=== PATIENT | male | born 1970 | race Caucasian/White ===

== ENCOUNTER 2017-01-18 13:49 | Emergency (ER) | payer MEDICAID ==
--- NOTE | 2017-01-18 14:18 | ER Document Report ---
ED General - General Stated Complaint: BLOOD PRESSURE PROBLEMS Time Seen by Provider: 01/18/17 14:00 Mode of Arrival: Medic Information source: Patient, Dr. Office Notes: 46-year-old male history of hypertension who had not taken his clonidine but is on for other blood pressure medications was at his primary care doctor's office where blood pressure was noted to be elevated at 208/100, pt was given clonidine 0.1 and then became dizzy when his blood pressure dropped. pt now notes no symptoms, , denies any neuro deficits. notes his symptoms all resolved when he got into the ambulance ot come here. TRAVEL OUTSIDE OF THE [place] IN LAST 30 DAYS: No - HPI Onset: Just prior to arrival Onset/Duration: Sudden Quality of pain: No pain Severity: Mild Pain Level: Denies Associated symptoms: Weakness Exacerbated by: Other Relieved by: Denies Similar symptoms previously: Yes Recently seen / treated by doctor: Yes - Related Data Allergies/Adverse Reactions: No Known Allergies Allergy (Verified 09/25/12 21:12) Past Medical History - Social History Smoking Status: Never Smoker Cigarette use (# per day): No Chew tobacco use (# tins/day): No Smoking Education Provided: No Family History: Reviewed & Not Pertinent - Past Medical History Cardiac Medical History: Reports: Hx Congestive Heart Failure - possible, Hx Hypertension Past Surgical History: Reports: Hx Cardiac Catheterization - Immunizations Hx Diphtheria, Pertussis, Tetanus Vaccination: No Review of Systems - Review of Systems Notes: REVIEW OF SYSTEMS: CONSTITUTIONAL : Denies fever, chills, or sweats. Denies recent illness. EENT: Denies eye, ear, throat, or mouth pain or symptoms. Denies nasal or sinus congestion or discharge. Denies throat, tongue, or mouth swelling or difficulty swallowing. CARDIOVASCULAR: Denies chest pain. Denies palpitations or racing or irregular heart beat. Denies ankle edema. RESPIRATORY: Denies cough, cold, or chest congestion. Denies shortness of breath, difficulty breathing, or wheezing. GASTROINTESTINAL: Denies abdominal pain or distention. Denies nausea, vomiting , or diarrhea. Denies blood in vomitus, stools, or per rectum. Denies black, tarry stools. Denies constipation. GENITOURINARY: Denies difficulty urinating, painful urination, burning, frequency, blood in urine, or discharge. MUSCULOSKELETAL: Denies back or neck pain or stiffness. Denies joint pain or swelling. SKIN: Denies rash, lesions or sores. HEMATOLOGIC : Denies easy bruising or bleeding. LYMPHATIC: Denies swollen, enlarged glands. NEUROLOGICAL: Admits to dizziness PSYCHIATRIC: Denies anxiety or stress. Denies depression, suicidal ideation, or homicidal ideation. ALL OTHER SYSTEMS REVIEWED AND NEGATIVE. Dictation was performed using [employer] voice recognition software PHYSICAL EXAMINATION: GENERAL: Well-appearing, well-nourished and in no acute distress. HEAD: Atraumatic, normocephalic. EYES: Pupils equal round and reactive to light, extraocular movements intact, sclera anicteric, conjunctiva are normal. ENT: Nares patent, oropharynx clear without exudates. Moist mucous membranes. NECK: Normal range of motion, supple without lymphadenopathy LUNGS: Breath sounds clear to auscultation bilaterally and equal. No wheezes rales or rhonchi. HEART: Regular rate and rhythm without murmurs ABDOMEN: Soft, nontender, nondistended abdomen. No guarding, no rebound. No masses appreciated. Musculoskeletal: Normal range of motion, no pitting or edema. No cyanosis. NEUROLOGICAL: Cranial nerves grossly intact. Normal speech, normal gait. Normal sensory, motor exams PSYCH: Normal mood, normal affect. SKIN: Warm, Dry, normal turgor, no rashes or lesions noted. Physical Exam - Vital signs Vitals: Temp Pulse Resp BP Pulse Ox 98.0 F 73 18 163/89 H 98 01/18/17 14:10 01/18/17 14:10 01/18/17 14:10 01/18/17 14:10 01/18/17 14:10 Course - Re-evaluation Re-evalutation: 01/18/17 14:37 Patient blood pressure has improved with the clonidine, lab work imaging is pending but I expect patient to have had the symptoms due to the blood pressure dropping 01/18/17 20:42 Patient is noted to have chronic kidney disease, blood pressure stabilized and he feels well at this time. Patient has been instructed that he must follow-up with his physician Patient states he will do so After performing a Medical Screening Examination, I estimate there is LOW risk for ACUTE GLAUCOMA, TEMPORAL ARTERITIS, MENINGITIS, INCRANIAL HEMORRHAGE, or ISCHEMIC STROKE thus I consider the discharge disposition reasonable. I have reevaluated this patient multiple times and no significant life threatening changes are noted. The patient and I have discussed the diagnosis and risks, and we agree with discharging home with close follow-up with the understanding that symptoms and presentations can change. We also discussed returning to the Emergency Department immediately if new or worsening symptoms occur. We have discussed the symptoms which are most concerning (e.g., changing or worsening symptoms, new numbness or weakness, vomiting, fever) that necessitate immediate return. - Vital Signs Vital signs: Temp Pulse Resp BP Pulse Ox 98.0 F 73 16 176/92 H 99 01/18/17 14:10 01/18/17 14:10 01/18/17 16:01 01/18/17 16:01 01/18/17 16:01 - Laboratory Result Diagrams: 01/18/17 13:57 01/18/17 13:57 Laboratory results interpreted by me: 01/18/17 01/18/17 13:57 13:57 RBC 6.02 H Hgb 12.9 L MCV 66 L MCH 21.4 L RDW 15.6 H Seg Neutrophils % 78.2 H Chloride 110 H Carbon Dioxide 21 L Creatinine 1.62 H Est GFR ( Amer) 56 L Est GFR (Non-Af Amer) 46 L Calcium 8.2 L ALT 18 L Creatine Kinase 192 H Total Protein 5.7 L Albumin 3.0 L - Diagnostic Test Radiology reviewed: Image reviewed, Reports reviewed - EKG Interpretation by Me EKG shows normal: Sinus rhythm, Girard, Intervals, QRS Complexes Critical Care Note - Critical Care Note Total time excluding time spent on procedures (mins): 34 Comments: 34 minutes of critical care time spent in direct contact evaluating and reevaluating the patient, treating symptoms, reviewing labs and studies and speaking with family and consultants excluding any procedures Discharge - Discharge Clinical Impression: Hypertensive urgency Condition: Stable Disposition: HOME, SELF-CARE Instructions: High Blood Pressure ([facility]) Referrals: KAYLEEN CAMPBELL MD [Primary Care Provider] - Follow up tomorrow
[2017-01-18 14:38] LABS: ABSOLUTE BASOPHILS # (AUTO) 0.1 10^3/uL (0.0-0.2); ABSOLUTE EOSINOPHILS # (AUTO) 0.2 10^3/uL (0.0-0.6); ABSOLUTE LYMPHOCYTES (AUTO) 1.1 10^3/uL (0.5-4.7); ABSOLUTE MONOCYTES (AUTO) 0.4 10^3/uL (0.1-1.4); ABSOLUTE NEUT (AUTO) 6.8 10^3/uL (1.7-8.2); BASOPHILS % (AUTO) 1.4 % (0-2); EOSINOPHILS % (AUTO) 2.5 % (0-6); HEMATOCRIT 39.8 % (37.9-51.0); HEMOGLOBIN 12.9 g/dL (13.5-17.0); HGB HCT DIFFERENCE -1.1; LYMPHOCYTES % (AUTO) 13.1 % (13-45); MEAN CORPUSCULAR HEMOGLOBIN 21.4 pg (27.0-33.4); MEAN CORPUSCULAR HGB CONC 32.3 g/dL (32.0-36.0); MEAN CORPUSCULAR VOLUME 66 fl (80-97); MONOCYTES % (AUTO) 4.8 % (3-13); RED BLOOD COUNT 6.02 10^6/uL (4.35-5.55); RED CELL DISTRIBUTION WIDTH 15.6 % (11.5-14.0); SEGMENTED NEUTROPHILS % (AUTO) 78.2 % (42-78); WHITE BLOOD COUNT 8.7 10^3/uL (4.0-10.5)
[2017-01-18 15:16] LABS: ALANINE AMINOTRANSFERASE 18 U/L (21-72); ALKALINE PHOSPHATASE 62 U/L (38-126); ANION GAP 9 (5-19); ASPARTATE AMINO TRANSFERASE 17 U/L (17-59); BILIRUBIN,DIRECT 0.4 mg/dL (0.0-0.4); BILIRUBIN,TOTAL 1.1 mg/dL (0.2-1.3); BLOOD UREA NITROGEN 20 mg/dL (7-20); CALCIUM 8.2 mg/dL (8.4-10.2); CARBON DIOXIDE 21 mmol/L (22-30); CHLORIDE 110 mmol/L (98-107); CREATINE KINASE 192 U/L (55-170); CREATININE RESULT 1.62 mg/dL (0.52-1.25); GLUCOSE 93 mg/dL (75-110); POTASSIUM 4.4 mmol/L (3.6-5.0); SODIUM 139.8 mmol/L (137-145); TOTAL PROTEIN 5.7 g/dL (6.3-8.2)
--- NOTE | 2017-01-18 15:19 | RADIOLOGY REPORT (SQ) ---
EXAM DESCRIPTION: CT HEAD WITHOUT COMPLETED DATE/TIME: 01/18/2017 3:03 pm REASON FOR STUDY: dizzy COMPARISON: CT brain 04/05/2016, 03/24/2015 TECHNIQUE: Axial images acquired through the brain without intravenous contrast. Images reviewed wi th bone, brain and subdural windows. Images stored on PACS. All CT scanners at this facility use dose modulation, iterative reconstruction, and/or weight based d osing when appropriate to reduce radiation dose to as low as reasonably achievable (ALARA). [facility]: Dose Right [facility]: CareDose [facility]: Dose Right [facility]: Teradose 4D [facility]: Smart Beat.no RADIATION DOSE: Up-to-date CT equipment and radiation dose reduction techniques were employed. CTDIv ol: 64.6 mGy. DLP: 1163 mGy-cm. mGy. LIMITATIONS: Mild motion artifact on some of the images FINDINGS: VENTRICLES: Normal size and contour. CEREBRUM: No masses. No hemorrhage. No midline shift. No evidence for acute infarction. Minimal b ilateral basal ganglia calcification. Very mild bifrontal small vessel chronic white matter disease . Normal schwartz/white matter differentiation. No areas of low density in the white matter. CEREBELLUM: No masses. No hemorrhage. No alteration of density. No evidence for acute infarction. EXTRAAXIAL SPACES: No fluid collections. No masses. ORBITS AND GLOBE: No intra- or extraconal masses. Normal contour of globe without masses. CALVARIUM: No fracture. PARANASAL SINUSES: No fluid or mucosal thickening. SOFT TISSUES: No mass or hematoma. OTHER: No other significant finding. IMPRESSION: No acute changes EVIDENCE OF ACUTE STROKE: NO. COMMENT: Quality ID # [id number]: Final reports with documentation of one or more dose reduction techniques (e.g., Automated exposure control, adjustment of the mA and/or kV according to patient size, use of iterative reconstruction technique) TECHNICAL DOCUMENTATION: JOB ID: [id number] [employer]- All Rights Reserved
[2017-01-18 15:27] LABS: CREATINE KINASE MB 1.22 ng/mL (<4.55); TROPONIN I 0.026 ng/mL
[2017-01-18 16:07] VITALS: BP 176/92
--- NOTE | 2017-01-18 19:55 | EKG REPORT ---
SEVERITY:- ABNORMAL ECG - SINUS RHYTHM LVH WITH SECONDARY REPOLARIZATION ABNORMALITY ABNORMAL T, PROBABLE ISCHEMIA, LATERAL LEADS BORDERLINE PROLONGED QT INTERVAL : Confirmed by: Niko Oneill MD 18-Jan-2017 19:53:36
== END 2017-01-18 16:08 | disposition home or self-care (01) ==
LOC: ER 13:49
DX: I16.0 Hypertensive urgency (principal); I12.9 Hypertensive chronic kidney disease with stage 1 through stage 4 chronic kidney disease, or unspecified chronic kidney disease; N18.9 Chronic kidney disease, unspecified; R53.1 Weakness; R42 Dizziness and giddiness; Z79.899 Other long term (current) drug therapy
CPT/HCPCS: 36415; 70450; 80053; 82550; 82553; 84484; 85025; 93005; 93010; 99285

== ENCOUNTER 2017-01-19 08:19 | Inpatient (IN) | payer MEDICAID ==
[2017-01-19 09:34] LABS: PROTHROMBIN TIME 12.5 SEC (11.4-15.4)
--- NOTE | 2017-01-19 09:37 | ER Document Report ---
ED Cardiac - General Chief Complaint: Chest Pain > 30 Stated Complaint: CHEST PAIN Time Seen by Provider: 01/19/17 09:36 Information source: Patient TRAVEL OUTSIDE OF THE [place] IN LAST 30 DAYS: No - HPI Patient complains to provider of: Chest pain Use of: denies: Alcohol, Amphetamines, Bath salts, Caffeine, Cocaine, Decongestants, Other Was the onset of pain: Sudden When did pain begin: 0300 Is the pain a: New problem Chest pain location: Substernal - left Quality of pain: Constant, Heaviness Chest pain radiation location: denies: Left jaw, Left arm, Left shoulder, Right jaw, Right arm, Right shoulder, Back, Neck, None Severity now: Moderate Severity at worst: Moderate Pain level currently: 3 Chest pain precipitating factors: nothing pt is aware of Cardiac risk factors: Hypertension, Hx CHF Positive cardiac history: No Associated symptoms: Diaphoresis, Shortness of breath. denies: None, Abdominal pain, Anxiety, Back pain, Cool extremities, Dizziness, Edema, Fatigue, Fever/ chills, Headache, Heartburn, Hypotension, Jaw pain, Lightheaded, Nausea/vomiting , Neck pain, Palpitations, Rash, Swelling/lump in chest, Syncope, Weakness, Other Exacerbated by: Sitting. denies: Standing, Activity, Emotional stress, Coughing , Deep breaths, Torso movement, Lying flat, Other Relieved by: Other - laying supine Similar symptoms previously: No Recently seen / treated by doctor: Yes - seen in ED yesterday for elevated BP issues, neg. cardiac work up Notes: Denies h/o CVA, TIA, ME, CAD, DM, CA. No LOC, n/v Still eating/drinking w/o difficulty. Normal urinations/BM's. - Related Data Allergies/Adverse Reactions: No Known Allergies Allergy (Verified 01/19/17 08:28) Home Medications: Current Home Medications Carvedilol [Coreg 25 mg Tablet] 50 mg PO Q12 01/19/17 [History] Clonidine [Catapres-Tts 1 (0.1 mg/24 Hr) Transderm Patch] 1 patch TD .QWEEKLY [History] Past Medical History - Social History Smoking Status: Unknown if Ever Smoked Family History: Reviewed & Not Pertinent Patient has suicidal ideation: No Patient has homicidal ideation: No - Past Medical History Cardiac Medical History: Reports: Hx Congestive Heart Failure - possible, Hx Hypercholesterolemia, Hx Hypertension Renal/ Medical History: Denies: Hx Peritoneal Dialysis Past Surgical History: Reports: Hx Cardiac Catheterization - Immunizations Hx Diphtheria, Pertussis, Tetanus Vaccination: No Review of Systems - Review of Systems Notes: REVIEW OF SYSTEMS: CONSTITUTIONAL : Denies fever, chills, or sweats. Denies recent illness. EENT: Denies eye, ear, throat, or mouth pain or symptoms. Denies nasal or sinus congestion or discharge. Denies throat, tongue, or mouth swelling or difficulty swallowing. CARDIOVASCULAR: see hpi RESPIRATORY: see hpi GASTROINTESTINAL: Denies abdominal pain or distention. Denies nausea, vomiting , or diarrhea. Denies blood in vomitus, stools, or per rectum. Denies black, tarry stools. Denies constipation. GENITOURINARY: Denies difficulty urinating, painful urination, burning, frequency, blood in urine, or discharge. MUSCULOSKELETAL: Denies back or neck pain or stiffness. Denies joint pain or swelling. SKIN: Denies rash, lesions or sores. NEUROLOGICAL: Denies confusion or altered mental status. Denies passing out or loss of consciousness. Denies dizziness or lightheadedness. Denies headache. Denies weakness or paralysis or loss of use of either side. Denies problems with gait or speech. Denies sensory loss, numbness, or tingling. ALL OTHER SYSTEMS REVIEWED AND NEGATIVE. Dictation was performed using [employer] voice recognition software Physical Exam - Vital signs Vitals: Temp Pulse Resp BP Pulse Ox 98.0 F 79 36 H 140/75 H 100 01/19/17 08:30 01/19/17 08:30 01/19/17 08:30 01/19/17 08:30 01/19/17 08:30 Notes: PHYSICAL EXAMINATION: GENERAL: Well-appearing, well-nourished and in no acute distress. A&Ox4 HEAD: Atraumatic, normocephalic. EYES: Pupils equal round and reactive to light, extraocular movements intact, sclera anicteric, conjunctiva are normal. ENT: Nares patent and without discharge. oropharynx clear without exudates. No tonsilar hypertrophy or erythema. Moist mucous membranes. No sinus tenderness. NECK: Normal range of motion, supple without lymphadenopathy Chest: + mild tenderness (does not correspond to described discomfort per patient). No flail chest. Equal rise/fall LUNGS: Breath sounds clear to auscultation bilaterally and equal. No wheezes rales or rhonchi. HEART: Regular rate and rhythm without murmurs, rubs, gallops. ABDOMEN: Soft, nontender, nondistended abdomen. No guarding, no rebound. No masses appreciated. Normal bowel sounds present. No CVA tenderness bilaterally. Musculoskeletal: FROM to passive/active. Strength 5+/5. Crispin neg b/l. Extremities: No cyanosis, clubbing, or edema b/l. Peripheral pulses 2+. Capillary refill less than 3 seconds. NEUROLOGICAL: Normal speech, normal gait. Normal sensory, motor exams PSYCH: Normal mood, normal affect. SKIN: Warm, Dry, normal turgor, no rashes or lesions noted. Course - Re-evaluation Re-evalutation: 01/19/17 13:30 Patient is an afebrile, well-hydrated, 46-year-old male who presents the ED with chest pain unspecified. Vitals are stable. PE is otherwise unremarkable. CBC, CMP, coag unremarkable. Cardiac enzymes/EKG's x2 were unremarkable. D- dimer negative. Low suspicion/risk for any ACS, PE, pneumothorax, pericarditis , dissection 01/19/17 13:[address] Campbell[address] Dr. Campbell wants me to talk with Dr. Sabillon as he had a neg stress test 3mos ago and continues to have 2/[address] Sabillon was paged to give me a call 01/19/17 13:[address] Sabillon (Dr. Campbell also called and spoke to him prior to Dr. Sabillon calling me back): We will treat as GI with continued cardiac monitoring. Admit patient for Obs. SL nitro given which reportedly helped dec the pain from 2/[address] Campbell will admit. Pt in agreement with admit/plan. Dr. Campbell would like V/Q scan, CT chest w/o, 40mg protonix, and GI cocktail. - Vital Signs Vital signs: Temp Pulse Resp BP Pulse Ox 98.0 F 79 15 168/90 H 99 01/19/17 08:30 01/19/17 08:30 01/19/17 13:53 01/19/17 13:53 01/19/17 13:53 - Laboratory Result Diagrams: 01/19/17 10:37 01/19/17 09:17 Laboratory results interpreted by me: 01/19/17 01/19/17 01/19/17 09:17 09:17 10:37 WBC 11.8 H RBC 6.30 H MCV 66 L MCH 21.4 L RDW 15.7 H Seg Neutrophils % 80.5 H Lymphocytes % 12.9 L Absolute Neutrophils 9.5 H Chloride 109 H Carbon Dioxide 21 L Creatinine 1.77 H Est GFR ( Amer) 50 L Est GFR (Non-Af Amer) 42 L Glucose 117 H NT-Pro-B Natriuret Pep 949 H Discharge - Discharge Clinical Impression: Chest pain, unspecified Qualifiers: Chest pain type: unspecified Qualified Code(s): R07.9 - Chest pain, unspecified Condition: Stable Disposition: ADMITTED INPATIENT Admitting Provider: Campbell Unit Admitted: Telemetry Referrals: KAYLEEN CAMPBELL MD [Primary Care Provider] - Follow up as needed
[2017-01-19] MEDS ORDERED: ASPIRIN 81 MG TABLET, CHEWABLE PO ONE (09:48)
--- NOTE | 2017-01-19 10:16 | RADIOLOGY REPORT (SQ) ---
EXAM DESCRIPTION: CHEST SINGLE VIEW COMPLETED DATE/TIME: 01/19/2017 10:04 am REASON FOR STUDY: chest pain COMPARISON: 03/24/2015 EXAM PARAMETERS: NUMBER OF VIEWS: One view. TECHNIQUE: Single frontal radiographic view of the chest acquired. RADIATION DOSE: NA LIMITATIONS: None. FINDINGS: LUNGS AND PLEURA: No opacities, masses or pneumothorax. No pleural effusion. MEDIASTINUM AND HILAR STRUCTURES: No masses. Contour normal. HEART AND VASCULAR STRUCTURES: Cardiomegaly without failure. BONES: No acute findings. HARDWARE: None in the chest. OTHER: No other significant finding. IMPRESSION: Cardiomegaly. TECHNICAL DOCUMENTATION: JOB ID: [id number]
[2017-01-19 10:44] LABS: ALANINE AMINOTRANSFERASE 21 U/L (21-72); ALBUMIN 4.4 g/dL (3.5-5.0); ALKALINE PHOSPHATASE 100 U/L (38-126); ANION GAP 14 (5-19); ASPARTATE AMINO TRANSFERASE 28 U/L (17-59); BILIRUBIN,DIRECT 0.4 mg/dL (0.0-0.4); BILIRUBIN,TOTAL 0.7 mg/dL (0.2-1.3); BLOOD UREA NITROGEN 18 mg/dL (7-20); CALCIUM 9.9 mg/dL (8.4-10.2); CARBON DIOXIDE 21 mmol/L (22-30); CHLORIDE 109 mmol/L (98-107); CREATINE KINASE 146 U/L (55-170); CREATININE RESULT 1.77 mg/dL (0.52-1.25); GLUCOSE 117 mg/dL (75-110); POTASSIUM 4.3 mmol/L (3.6-5.0); SODIUM 144.1 mmol/L (137-145); TOTAL PROTEIN 8.2 g/dL (6.3-8.2)
[2017-01-19 10:50] LABS: ABSOLUTE BASOPHILS # (AUTO) 0.1 10^3/uL (0.0-0.2); ABSOLUTE EOSINOPHILS # (AUTO) 0.2 10^3/uL (0.0-0.6); ABSOLUTE LYMPHOCYTES (AUTO) 1.5 10^3/uL (0.5-4.7); ABSOLUTE MONOCYTES (AUTO) 0.6 10^3/uL (0.1-1.4); ABSOLUTE NEUT (AUTO) 9.5 10^3/uL (1.7-8.2); BASOPHILS % (AUTO) 0.5 % (0-2); EOSINOPHILS % (AUTO) 1.3 % (0-6); HEMATOCRIT 41.6 % (37.9-51.0); HEMOGLOBIN 13.5 g/dL (13.5-17.0); HGB HCT DIFFERENCE -1.1; LYMPHOCYTES % (AUTO) 12.9 % (13-45); MEAN CORPUSCULAR HEMOGLOBIN 21.4 pg (27.0-33.4); MEAN CORPUSCULAR HGB CONC 32.4 g/dL (32.0-36.0); MEAN CORPUSCULAR VOLUME 66 fl (80-97); MONOCYTES % (AUTO) 4.8 % (3-13); RED CELL DISTRIBUTION WIDTH 15.7 % (11.5-14.0); SEGMENTED NEUTROPHILS % (AUTO) 80.5 % (42-78); WHITE BLOOD COUNT 11.8 10^3/uL (4.0-10.5)
[2017-01-19 10:56] LABS: CREATINE KINASE MB 1.23 ng/mL (<4.55)
[2017-01-19 10:58] LABS: TROPONIN I 0.039 ng/mL
--- NOTE | 2017-01-19 13:02 | EKG REPORT ---
SEVERITY:- ABNORMAL ECG - SINUS RHYTHM VENTRICULAR PREMATURE COMPLEX MATT, CONSIDER BIATRIAL ABNORMALITIES PROBABLE LVH WITH SECONDARY REPOL ABNRM ABNORMAL T, PROBABLE ISCHEMIA, ANT-LAT LEADS BORDERLINE PROLONGED QT INTERVAL : Confirmed by: Niko Oneill MD 19-Jan-2017 13:02:11
--- NOTE | 2017-01-19 13:03 | EKG REPORT ---
SEVERITY:- ABNORMAL ECG - SINUS RHYTHM LEFT ATRIAL ABNORMALITY ABNORMAL T, PROBABLE ISCHEMIA, ANT-LAT LEADS : Confirmed by: Niko Oneill MD 19-Jan-2017 13:02:24
[2017-01-19] MEDS ORDERED: NITROGLYCERIN 0.4 MG/TAB 25 TAB/BOTTLE SL PRN (13:37)
[2017-01-19] MEDS ORDERED: PANTOPRAZOLE SODIUM 40 MG VIAL IV ONE (13:49)
[2017-01-19] MEDS ORDERED: METOCLOPRAMIDE HCL ORAL SOLN 10 MG/10 ML UDCUP PO ONE (13:49)
[2017-01-19] MEDS ORDERED: LIDOCAINE 2% VISCOUS SOLN 20 ML UDCUP PO ONE (13:49)
[2017-01-19] MEDS ORDERED: MAG HYDROX/AL HYDROX/SIMETH SUSP 30 ML UDCUP PO ONE (13:49)
[2017-01-19] MEDS ORDERED: ONDANSETRON HCL INJ/PF 4 MG/2 ML SDV IV PRN (14:00)
[2017-01-19] MEDS ORDERED: ACETAMINOPHEN 325 MG TABLET PO PRN (14:00)
[2017-01-19] MEDS ORDERED: IPRATROPIUM/ALBUTEROL 0.5-2.5 MG/3 ML AMPUL NEB PRN (14:00)
--- NOTE | 2017-01-19 15:40 | RADIOLOGY REPORT (SQ) ---
EXAM DESCRIPTION: CT CHEST WITHOUT COMPLETED DATE/TIME: 01/19/2017 3:17 pm REASON FOR STUDY: chest pain COMPARISON: None. TECHNIQUE: CT scan performed of the chest without intravenous contrast. Images reviewed with lung, soft tissue and bone windows. Reconstructed coronal and sagittal MPR images reviewed. All images st ored on PACS. All CT scanners at this facility use dose modulation, iterative reconstruction, and/or weight based d osing when appropriate to reduce radiation dose to as low as reasonably achievable (ALARA). [facility]: Dose Right [facility]: CareDose [facility]: Dose Right [facility]: Teradose 4D [facility]: Smart [employer] RADIATION DOSE: Up-to-date CT equipment and radiation dose reduction techniques were employed. CTDIv ol: 8.9 mGy. DLP: 330 mGy-cm. mGy. LIMITATIONS: No technical limitations. FINDINGS: LUNGS AND PLEURA: No masses, infiltrates, pneumothorax. No pleural effusions, calcificati ons. HILAR AND MEDIASTINAL STRUCTURES: No identified masses or abnormal nodes. No obvious aneurysm. HEART AND VASCULAR STRUCTURES: No aneurysm. No pericardial effusion. UPPER ABDOMEN: No significant findings. Limited exam. THYROID AND OTHER SOFT TISSUES: No masses. No adenopathy. BONES: There is a large dense bridging osteophyte on the right in the mid thoracic spine. No osseous lesions are appreciated. HARDWARE: None in the chest. OTHER: No other significant findings. IMPRESSION: NO SIGNIFICANT FINDING ON NON-CONTRASTED CHEST CT. TECHNICAL DOCUMENTATION: JOB ID: [id number] Quality ID # [id number]: Final reports with documentation of one or more dose reduction techniques (e.g., Au tomated exposure control, adjustment of the mA and/or kV according to patient size, use of iterative reconstruction technique) 2010 [employer]- All Rights Reserved
[2017-01-19] MEDS ORDERED: CLONIDINE 0.1 MG/24 HR PATCH.TDWK TD SCH (16:00)
--- NOTE | 2017-01-19 16:06 | RADIOLOGY REPORT (SQ) ---
EXAM DESCRIPTION: NM LUNG VENT/PERF SCAN COMPLETED DATE/TIME: 01/19/2017 3:44 pm REASON FOR STUDY: chest pain COMPARISON: AP chest 01/19/2017 CT chest without contrast 01/19/2017 RADIONUCLIDE AND DOSE: 5.4 millicuries TC-99m MAA Intravenous 30.5 millicuries TC-99m DTPA Inhaled aerosol TECHNIQUE: Two views of the lungs acquired post ventilation of DTPA aerosol. Eight views of the deisy ngs acquired following injection of MAA. LIMITATIONS: None. FINDINGS: VENTILATION: Symmetric and homogeneous distribution of DTPA aerosol during ventilatory pha se. No significant areas of photopenia. PERFUSION: Perfusion images with normal homogenous activity and no wedge-shaped or segmental defects. No ventilation-perfusion mismatches. OTHER: No other significant finding. IMPRESSION: NORMAL VENTILATION-PERFUSION LUNG SCAN. NEGATIVE FOR PULMONARY EMBOLI. TECHNICAL DOCUMENTATION: JOB ID: [id number]- All Rights Reserved
[2017-01-19] MEDS: HEPARIN SOD (PORCINE) 5,000 UNIT/ML 1 ML SYRINGE SUBCUT SCH ×2 (16:20→22:08)
--- NOTE | 2017-01-19 17:05 | PDOC H&P ---
History of Present Illness Admission Date/PCP: KAYLEEN CAMPBELL MD Patient complains of: Chest pain History of Present Illness: GEETHA ADRIAN is a 46 year old male This is a 46-year-old male with This morning 3:00 and was complaining of chest pain on the left sides and patients came to the emergency department this morning but patients to have initial cardiac enzyme and EKG and a d-dimer and was all normal. Patient was giving nitroglycerin and patient's chest pain is pretty much relieved Patients came to my office yesterday with the blood pressure was 220/108 and the patient's is a noncompliance of the medications and patient was given 1 dose of clonidine 0.1 mg and patients afterwards took medications from his home including the hydralazine and the Coreg and the doxazosin and patient's feeling diaphoretic and the patient's not feeling well and dizzyAnd And called EMS and patient's was sent to the emergency departmentThat patient have all the CT of the head and EKG and all blood work was done and all normalAnd patient was feeling much better and the ER physician discharged the patient yesterday Patient also have recently is seeing Dr Sabillon and patient have a stress test and echocardiogram was done in October 2016 and was all stable Patient also see her Dr. Liao but the chronic kidney disease Patient also using the marijuana Patient is not taking his clonidine patch since last couple of months and according to the patient when he was on a clonidine patch and was working very well. Patient also noticed when he take this all his blood pressure medications patients feel dizzy and not feeling well but not sure which medications At this point discussed with the cardiology and suggest that with the patient's to further evaluate and will order the VQ scan and a CT of the chest to further evaluate Past Medical History Cardiac Medical History: Reports: Congestive Heart Failure - possible, Hyperlipidema, Hypertension Pulmonary Medical History: Reports: Chronic Obstructive Pulmonary Disease (COPD) Renal/ Medical History: Reports: Chronic Kidney Disease GI Medical History: Reports: Gastroesophageal Reflux Disease Past Surgical History Past Surgical History: Reports: Cardiac Catheterization Social History Smoking Status: Current Every Day Smoker Frequency of Alcohol Use: None Hx Recreational Drug Use: Yes Drugs: Marijuana Hx Prescription Drug Abuse: No Family History Family History: Reviewed & Not Pertinent Parental Family History Reviewed: Yes Children Family History Reviewed: Yes Sibling(s) Family History Reviewed.: Yes Medication/Allergy Home Medications: Carvedilol [Coreg 25 mg Tablet] 50 mg PO Q12 01/19/17 Clonidine [Catapres-Tts 1 (0.1 mg/24 Hr) Transderm Patch] 1 patch TD .QWEEKLY Allergies/Adverse Reactions: No Known Allergies Allergy (Verified 01/19/17 08:28) Review of Systems Constitutional: ABSENT: chills, fever(s), headache(s), weight gain, weight loss Eyes: ABSENT: visual disturbances Ears: ABSENT: hearing changes Cardiovascular: PRESENT: chest pain, dyspnea on exertion. ABSENT: edema, orthropnea, palpitations Respiratory: ABSENT: cough, hemoptysis Gastrointestinal: ABSENT: abdominal pain, constipation, diarrhea, hematemesis, hematochezia, nausea, vomiting Genitourinary: ABSENT: dysuria, hematuria Musculoskeletal: ABSENT: joint swelling Integumentary: ABSENT: rash, wounds Neurological: ABSENT: abnormal gait, abnormal speech, confusion, dizziness, focal weakness, syncope Psychiatric: ABSENT: anxiety, depression, homidical ideation, suicidal ideation Endocrine: ABSENT: cold intolerance, heat intolerance, menstrual abnormalities, polydipsia, polyuria Hematologic/Lymphatic: ABSENT: easy bleeding, easy bruising, lymphadenopathy Physical Exam Vital Signs: Temp Pulse Resp BP Pulse Ox 98.0 F 79 15 168/90 H 99 01/19/17 08:30 01/19/17 08:30 01/19/17 13:53 01/19/17 13:53 01/19/17 13:53 Intake & Output 01/18/17 01/19/17 01/20/17 06:59 06:59 06:59 Weight 81.647 kg General appearance: PRESENT: no acute distress, well-developed, well-nourished Head exam: PRESENT: atraumatic, normocephalic Eye exam: PRESENT: conjunctiva pink, EOMI, PERRLA. ABSENT: scleral icterus Ear exam: PRESENT: normal external ear exam Mouth exam: PRESENT: moist, tongue midline Neck exam: PRESENT: full ROM. ABSENT: carotid bruit, JVD, lymphadenopathy, thyromegaly Respiratory exam: PRESENT: clear to auscultation oly Cardiovascular exam: PRESENT: RRR, +S1, +S2. ABSENT: diastolic murmur, rubs, systolic murmur Pulses: PRESENT: normal dorsalis pedis pul, +2 pedal pulses bilateral Vascular exam: PRESENT: normal capillary refill GI/Abdominal exam: PRESENT: normal bowel sounds, soft. ABSENT: distended, guarding, mass, organolmegaly, rebound, tenderness Rectal exam: PRESENT: deferred Extremities exam: ABSENT: full ROM, left AKA, right AKA, left BKA, right BKA, calf tenderness, joint swelling, pedal edema, tenderness, other Musculoskeletal exam: PRESENT: ambulatory Neurological exam: PRESENT: alert, awake, oriented to person, oriented to place , oriented to time, oriented to situation, CN II-XII grossly intact, normal gait. ABSENT: motor sensory deficit Psychiatric exam: PRESENT: appropriate affect, normal mood. ABSENT: homicidal ideation, suicidal ideation Skin exam: PRESENT: dry, intact, warm. ABSENT: cyanosis, rash Results Laboratory Results: 01/19/17 10:37 01/19/17 09:17 01/19/17 01/19/17 01/19/17 09:17 09:17 10:37 WBC Cancelled 11.8 H RBC Cancelled 6.30 H Hgb Cancelled 13.5 Hct Cancelled 41.6 MCV Cancelled 66 L MCH Cancelled 21.4 L MCHC Cancelled 32.4 RDW Cancelled 15.7 H Plt Count Cancelled 156 Seg Neutrophils % Cancelled 80.5 H Lymphocytes % Cancelled 12.9 L Monocytes % Cancelled 4.8 Eosinophils % Cancelled 1.3 Basophils % Cancelled 0.5 Absolute Neutrophils Cancelled 9.5 H Absolute Lymphocytes Cancelled 1.5 Absolute Monocytes Cancelled 0.6 Absolute Eosinophils Cancelled 0.2 Absolute Basophils Cancelled 0.1 Sodium 144.1 Potassium 4.3 Chloride 109 H Carbon Dioxide 21 L Anion Gap 14 BUN 18 Creatinine 1.77 H Est GFR ( Amer) 50 L Est GFR (Non-Af Amer) 42 L Glucose 117 H Calcium 9.9 Total Bilirubin 0.7 AST 28 ALT 21 Alkaline Phosphatase 100 Total Protein 8.2 Albumin 4.4 01/19/17 01/19/17 01/19/17 09:17 09:17 09:17 Creatine Kinase 146 CK-MB (CK-2) 1.23 Troponin I 0.039 Cancelled NT-Pro-B Natriuret Pep 949 H 01/19/17 11:22 Creatine Kinase CK-MB (CK-2) Troponin I 0.030 NT-Pro-B Natriuret Pep Impressions: Chest X-Ray 01/19/17 09:48 IMPRESSION: Cardiomegaly. Assessment & Plan - Diagnosis (1) Chest pain, unspecified Qualifiers: Chest pain type: unspecified Qualified Code(s): R07.9 - Chest pain, unspecified Is this a current diagnosis for this admission?: Yes Plan: Patient initial cardiac workup is all stable admit the patient's in IMCU we order the VQ scan sinus CT of the chest and consult the cardiology as per discussed with Dr. Sabillon for further evaluate (2) Chronic kidney disease Qualifiers: Chronic kidney disease stage: stage 3 (moderate) Qualified Code(s): N18.3 - Chronic kidney disease, stage 3 (moderate) Is this a current diagnosis for this admission?: Yes Plan: We will get the ultrasound from the kidney consult the nephrology patient already have a several kidney workup done by Dr. LiaoIncluding the vascular ultrasound for the kidney which is also negative for any stenosis (3) Hypertension Is this a current diagnosis for this admission?: Yes Plan: Patient's blood pressure is very labile we may be considered to stop the hydralazine because patients may have some vasodilating side effect and may be a just the beta-cuate and other medications and consult the nephrology and cardiology for further evaluations (4) Congestive heart failure (CHF) Qualifiers: Congestive heart failure type: unspecified congestive heart failure type Congestive heart failure chronicity: acute Qualified Code(s): I50.9 - Heart failure, unspecified Is this a current diagnosis for this admission?: Yes Plan: Recent echocardiogram on the October [address] Sabillon's with the EF is 50-60% (5) Hyperlipidemia Qualifiers: Hyperlipidemia type: unspecified Qualified Code(s): E78.5 - Hyperlipidemia , unspecified Is this a current diagnosis for this admission?: Yes Plan: Continues to current medications (6) Aortic valve incompetence Qualifiers: Cardiac valve disease etiology: etiology unspecified Qualified Code(s): I35.1 - Nonrheumatic aortic (valve) insufficiency Is this a current diagnosis for this admission?: Yes Plan: We will get another echocardiogram while patient was shortness of the breath - Time Time Spent: 50 to 70 Minutes Medications reviewed and adjusted accordingly: Yes Anticipated discharge: Home Within: Other - Inpatient Certification Medical Necessity: Need Close Monitoring Due to Risk of Patient Decompensation Post Hospital Care: D/C Global Cto Documentation - Plan Summary Plan Summary: Admit the patient in the IMCU consult the cardiology and nephrology and further evaluate. Discussed with the patient and the regarding the patient's current conditions I have the patient is continuing to improve see other MD orders
[2017-01-19] MEDS ORDERED: INFLUENZA ADLT QUAD (36MOS+) 2017-18 VAC 0.5 ML SYR IM PRN (17:17)
[2017-01-19 18:03] LABS: CREATINE KINASE MB 0.74 ng/mL (<4.55); TROPONIN I 0.029 ng/mL
[2017-01-19] MEDS: CARVEDILOL 12.5 MG TABLET PO SCH (18:06)
--- NOTE | 2017-01-19 18:06 | XCELERA REPORT ---
[address] [address] Transthoracic Echocardiogram Report Name: GEETHA ADRIAN Age: 46 yrs Gender: Male : 1970 Patient Status: Inpatient [address] Study Date: 01/19/2017 02:36 PM Height: 69 in Weight: 180 lb BSA: 2.0 m2 Procedure: A complete two-dimensional transthoracic echocardiogram was performed (2D, M-mode, spectral and color flow Doppler). The study was technically adequate with some images being suboptimal in quality. Reason For Study: chest pain/cad/chf Ordering Physician: KAYLEEN CAMPBELL Performed By: Conrado Aguilar Interpretation Summary The left ventricular ejection fraction is normal. There is moderate to severe concentric left ventricular hypertrophy. The left ventricle is grossly normal size. Doppler measurements suggest pseudonormalized left ventricular relaxation, which is associated with grade II/IV or mild to moderate diastolic dysfunction Wall motion cannot be accurately commented on, but no definite regional wall motion abnormalities noted. The right ventricular systolic function is normal. The right atrium is normal. The left atrium is mildly dilated. There is a trace amount of mitral regurgitation There is no mitral valve stenosis. There is a moderate amount of aortic regurgitation There is an eccentric jet of aortic insufficiency directed against the septum. There is a trace to mild amount of tricuspid regurgitation There is mild pulmonary hypertension by echo Right ventricular systolic pressure is estimated to be elevated at 30- 40mmHg. There is no pericardial effusion. MMode/2D Measurements & Calculations RVDd: 2.7 cm LVIDd: 5.6 cm FS: 29.4 % Ao root diam: 3.5 cm IVSd: 1.8 cm LVIDs: 4.0 cm EDV(Teich): 155.7 ml LVPWd: 1.8 cm ESV(Teich): 69.1 ml Ao root area: 9.6 cm2 EF(Teich): 55.6 % LA dimension: 4.1 cm Doppler Measurements & Calculations MV E max marquez: MV P1/2t max marquez: Ao V2 max: AI max marquez: 77.5 cm/sec 77.1 cm/sec 168.9 cm/sec 311.1 cm/sec MV A max marquez: MV P1/2t: 60.5 msec Ao max PG: AI max P.7 cm/sec 11.4 mmHg 40.0 mmHg MV E/A: 0.71 MVA(P1/2t): 3.6 cm2 AI dec slope: MV dec slope: 373.2 cm/sec2 224.0 cm/sec2 AI P1/2t: 406.7 msec LV V1 max PG: PA V2 max: PI end-d marquez: TR max marquez: 4.5 mmHg 80.5 cm/sec 122.2 cm/sec 217.2 cm/sec LV V1 max: PA max P.6 mmHg TR max P.6 cm/sec 18.9 mmHg RVSP(TR): 28.9 mmHg RAP systole: 10.0 mmHg Left Ventricle The left ventricle is grossly normal size. There is moderate to severe concentric left ventricular hypertrophy. The left ventricular ejection fraction is normal. Doppler measurements suggest pseudonormalized left ventricular relaxation, which is associated with grade II/IV or mild to moderate diastolic dysfunction. Wall motion cannot be accurately commented on, but no definite regional wall motion abnormalities noted. Right Ventricle The right ventricle is grossly normal size. There is normal right ventricular wall thickness. The right ventricular systolic function is normal. Atria The right atrium is normal. The left atrium is mildly dilated. Interarterial septum not well visualized and not well dopplered. Cannot comment on ASD/PFO presence. Mitral Valve The mitral valve leaflets are sclerotic, but show no functional abnormalities. There is no mitral valve stenosis. There is a trace amount of mitral regurgitation. Aortic Valve The aortic valve is trileaflet. There is no aortic valve stenosis. There is a moderate amount of aortic regurgitation. There is an eccentric jet of aortic insufficiency directed against the septum. Tricuspid Valve The tricuspid valve is not well visualized, but is grossly normal. There is no tricuspid stenosis. There is a trace to mild amount of tricuspid regurgitation. There is mild pulmonary hypertension by echo. Right ventricular systolic pressure is estimated to be elevated at 30-40mmHg. Pulmonic Valve The pulmonic valve is not well visualized. Great Vessels The aortic root is not well visualized. The inferior vena cava appeared normal. Effusions There is no pericardial effusion. : KAYLEEN CAMPBELL > Arpita Sabillon
--- NOTE | 2017-01-19 20:31 | PDOC CONSULTATION ---
Consultation Consult Date: 01/19/17 Attending physician:: KAYLEEN MCCRARY Consult reason:: Chest pain History of Present Illness Admission Date/PCP: 01/19/17 14:00 KAYLEEN MCCRARY MD Patient complains of: Chest pain History of Present Illness: GEETHA ADRIAN is a 46 year old male This is a 46-year-old male with This morning 3:00 and was complaining of chest pain on the left sides and patients came to the emergency department this morning but patients to have initial cardiac enzyme and EKG and a d-dimer and was all normal. Patient was giving nitroglycerin and patient's chest pain is pretty much relieved Patients came to my office yesterday with the blood pressure was 220/108 and the patient's is a noncompliance of the medications and patient was given 1 dose of clonidine 0.1 mg and patients afterwards took medications from his home including the hydralazine and the Coreg and the doxazosin and patient's feeling diaphoretic and the patient's not feeling well and dizzyAnd And called EMS and patient's was sent to the emergency departmentThat patient have all the CT of the head and EKG and all blood work was done and all normalAnd patient was feeling much better and the ER physician discharged the patient yesterday Patient also have recently is seeing Dr Sabillon and patient have a stress test and echocardiogram was done in October 2016 and was all stable Patient also see her Dr. Liao but the chronic kidney disease Patient also using the marijuana Patient is not taking his clonidine patch since last couple of months and according to the patient when he was on a clonidine patch and was working very well. Patient also noticed when he take this all his blood pressure medications patients feel dizzy and not feeling well but not sure which medications At this point discussed with the cardiology and suggest that with the patient's to further evaluate and will order the VQ scan and a CT of the chest to further evaluate This history obtained by Dr. Mccrary was reviewed and confirmed. Patient did tell me that he is somewhat noncompliant with blood pressure medication. He once his blood pressure regimen to be simplified. Patient's previous cardiac evaluations were reviewed. Patient denied any exertional component to the chest pain. Past Medical History Cardiac Medical History: Reports: Congestive Heart Failure - possible, Hyperlipidema, Hypertension Pulmonary Medical History: Reports: Chronic Obstructive Pulmonary Disease (COPD) Renal/ Medical History: Reports: Chronic Kidney Disease GI Medical History: Reports: Gastroesophageal Reflux Disease Past Surgical History Past Surgical History: Reports: Cardiac Catheterization Social History Smoking Status: Current Every Day Smoker Cigarettes Packs Per Day: 0 Frequency of Alcohol Use: None Hx Recreational Drug Use: Yes Drugs: Marijuana Hx Prescription Drug Abuse: No - Advance Directive Resuscitation Status: Full Code Family History Family History: Hypertension Parental Family History Reviewed: Yes Children Family History Reviewed: Yes Sibling(s) Family History Reviewed.: Yes Medication/Allergy Home Medications: Amlodipine Besylate [Norvasc 5 mg Tablet] 5 mg PO QHS #30 tablet 01/25/17 Aspirin 81 mg PO DAILY #30 tab.chew 01/25/17 Carvedilol [Coreg 12.5 mg Tablet] 25 mg PO Q12A #60 tablet 01/25/17 Clonidine [Catapres-Tts 2 (0.2 mg/24 Hr) Transderm Ptch] 1 each TD We@1000 #12 patch.tdwk 01/25/17 Isosorb Dinit/Hydralazine HCl [Bidil 20-37.5 mg Tablet] 1 tab PO Q8 #90 tablet 01/25/17 Valsartan [Diovan 160 mg Tablet] 160 mg PO DAILY #30 tablet 01/25/17 Allergies/Adverse Reactions: No Known Allergies Allergy (Verified 01/19/17 08:28) Review of Systems Review of Systems: Please see history of present illness and past medical history as wall. Constitutional: No fever or chills reported. Head : No recent chronic headaches, recent head injury. Eyes: No recent eye pain, diplopia, redness, discharge, acute visual changes. Ears: No recent chronic ear pain, acute hearing loss, ear discharge. Oral cavity: No recent ulcerations, bleeding, oral cavity discomfort. Neck: No recent acute neck pain reported. Hematologic: No recent easy bruising or bleeding or hematologic malignancy reported. Lymphatic: No recent lymphatic malignancy, chronic lymphadenopathy reported yet Cardiovascular system review: See history of present illness. Respiratory system review: No recent chronic cough, hemoptysis, blood clots in the lungs reported. Shortness of breath on exertion Gastrointestinal system review: Negative for any recent acute or chronic abdominal pain, hematemesis, melena, recent change in bowel habits. Genitourinary system review: No recent acute or chronic hematuria, flank pain, UTI etc. reported. Skin system review: Negative for any recent abnormal bruising, no rash, no pruritus reported. Neurologic: No prior history of strokes, mini strokes, seizure disorder. Psychologic: No history of major psychosis or major depression reported. Musculoskeletal: Minor aches and pains reported. No acute joint swelling reported. Endocrine: No recent polyuria, polydipsia, recent heat or cold intolerance. Physical Exam Vital Signs: Temp Pulse Resp BP Pulse Ox 98.8 F 72 16 147/75 H 99 01/19/17 16:45 01/19/17 16:45 01/19/17 16:45 01/19/17 16:45 01/19/17 16:45 Intake & Output 01/18/17 01/19/17 01/20/17 06:59 06:59 06:59 Intake Total 10 Balance 10 Exam: GENERAL: well-nourished and in no acute distress. Alert and oriented x3 HEAD: Atraumatic, normocephalic. EYES: Pupils equal round and reactive to light, extraocular movements intact, sclera anicteric, conjunctiva are normal. ENT: TMs normal, nares patent, oropharynx clear without exudates. Moist mucous membranes. No oral ulcerations or bleeding gums noted NECK: supple without lymphadenopathy. Trachea is central. No cervical or axillary lymphadenopathy noted. Carotids are 2+, JVD WNL LUNGS: Respiration seems nonlabored, no significant accessory muscle action noted. Breath sounds clear to auscultation bilaterally and equal noted. No wheezes rales or rhonchi noted. No significant dullness noted on percussion. CHEST: Palpation of the chest wall shows mild diffuse chest wall tenderness. No other significant abnormalities noted. 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 ABDOMEN: Soft, no significant tenderness appreciated, normoactive bowel sounds. No guarding, no rebound. No rigidity noted . No masses appreciated. EXTREMITIES: Pedal pulses are 1-2+, no calf tenderness noted. No clubbing or cyanosis.trace pedal edema noted NEUROLOGICAL: Focused neurological exam showed no significant neurologic deficit. Normal speech, no focal weakness appreciated. PSYCH: Normal mood, normal affect. Judgment and insight within normal limits. SKIN: No significant ecchymosis, rash, ulcerations or signs of pruritus noted. MUSCULOSKELETAL EXAM: No significant joint swelling noted. Results Laboratory Results: 01/19/17 17:00 Lactic Acid 2.0 01/19/17 01/19/17 17:00 17:00 Creatine Kinase 108 CK-MB (CK-2) 0.74 Troponin I 0.029 EKG Comments: Sinus rhythm, LVH with secondary ST-T wave changes. When compared to prior EKG this is unchanged. Impressions: Chest X-Ray 01/19/17 09:48 IMPRESSION: Cardiomegaly. Lung Scan-VQ NM 01/19/17 14:03 IMPRESSION: NORMAL VENTILATION-PERFUSION LUNG SCAN. NEGATIVE FOR PULMONARY EMBOLI. Chest CT 01/19/17 14:04 IMPRESSION: NO SIGNIFICANT FINDING ON NON-CONTRASTED CHEST CT. Assessment & Plan - Diagnosis (1) Chest pain, unspecified Qualifiers: Chest pain type: unspecified Qualified Code(s): R07.9 - Chest pain, unspecified Is this a current diagnosis for this admission?: Yes (2) Hyperlipidemia Qualifiers: Hyperlipidemia type: unspecified Qualified Code(s): E78.5 - Hyperlipidemia , unspecified Is this a current diagnosis for this admission?: Yes (3) Hypertension Qualifiers: Hypertension type: essential hypertension Qualified Code(s): I10 - Essential (primary) hypertension Is this a current diagnosis for this admission?: Yes (4) Aortic valve incompetence Qualifiers: Cardiac valve disease etiology: etiology unspecified Qualified Code(s): I35.1 - Nonrheumatic aortic (valve) insufficiency Is this a current diagnosis for this admission?: Yes (5) Chronic kidney disease Qualifiers: Chronic kidney disease stage: stage 3 (moderate) Qualified Code(s): N18.3 - Chronic kidney disease, stage 3 (moderate) Is this a current diagnosis for this admission?: Yes (6) Congestive heart failure (CHF) Qualifiers: Congestive heart failure type: unspecified congestive heart failure type Congestive heart failure chronicity: chronic Qualified Code(s): I50.9 - Heart failure, unspecified Is this a current diagnosis for this admission?: Yes (7) Tobacco abuse Is this a current diagnosis for this admission?: Yes - Notes Notes: Chest pain: This is felt to be noncardiac. Patient does however have significant risk factors. Patient had a stress test a few months ago which was reported to be negative. 2D echo obtained today shows normal LVEF, without any wall motion abnormalities. Cardiac enzymes so far negative. Chest pain could be related to severe LVH, microvascular angina but could well be related to chest wall tenderness. At this point will recommend just medical management. Patient currently chest pain-free. Recommend good control of blood pressure, optimization of beta blockers, nitrates etc. if needed. Dyslipidemia: Continue statin therapy. LDL goal should be less than 70. Hypertension: Blood pressure has been really uncontrolled in this patient. Continue clonidine patch, carvedilol therapy. 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 Aortic valve incompetence: Moderate aortic incompetence noted with eccentric jet. So far LV's end-diastolic dimension etc. WNL therefore does not need any operative intervention. Patient would need close follow-up. Chronic kidney disease: Continue current therapy. Discussed that good control of blood pressure is important in preventing progression. CHF: This is chronic and seems compensated. Tobacco abuse: Patient advised to quit smoking. Of note patient tells me that she had a sleep apnea evaluation which was negative. This was important to get done in view of severe hypertension in this patient. - Time Time Spent: 30 to 50 Minutes - More than 50% of the time spent coordinating care , discussing management plans with involved caregivers. Management plans discussed with involved personnels. Medical decision making was of moderate to high complexity, patient's has multiple comorbidities. Medications reviewed and adjusted accordingly: Yes
[2017-01-19] MEDS ORDERED: (PENDING PHARMACY ID) (Carvedilol [Coreg 25 Mg Tablet] 50 MG) PO SCH (22:00)
[2017-01-19] MEDS: PANTOPRAZOLE SODIUM 40 MG VIAL IV SCH (22:08)
[2017-01-19 22:55] LABS: URINE BARBITURATES SCREEN NEGATIVE; URINE METHADONE SCREEN NEGATIVE; URINE OPIATES LOW NEGATIVE; URINE PHENCYCLIDINE SCREEN NEGATIVE
[2017-01-19 23:26] LABS: CREATINE KINASE MB 0.66 ng/mL (<4.55); TROPONIN I 0.036 ng/mL
[2017-01-20 05:20] LABS: ABSOLUTE BASOPHILS # (AUTO) 0.1 10^3/uL (0.0-0.2); ABSOLUTE EOSINOPHILS # (AUTO) 0.1 10^3/uL (0.0-0.6); ABSOLUTE LYMPHOCYTES (AUTO) 1.2 10^3/uL (0.5-4.7); ABSOLUTE MONOCYTES (AUTO) 0.6 10^3/uL (0.1-1.4); ABSOLUTE NEUT (AUTO) 7.4 10^3/uL (1.7-8.2); BASOPHILS % (AUTO) 0.7 % (0-2); EOSINOPHILS % (AUTO) 1.4 % (0-6); HEMATOCRIT 40.9 % (37.9-51.0); HEMOGLOBIN 13.5 g/dL (13.5-17.0); HGB HCT DIFFERENCE -0.4; LYMPHOCYTES % (AUTO) 13.1 % (13-45); MEAN CORPUSCULAR HEMOGLOBIN 21.8 pg (27.0-33.4); MEAN CORPUSCULAR VOLUME 66 fl (80-97); RED BLOOD COUNT 6.21 10^6/uL (4.35-5.55); RED CELL DISTRIBUTION WIDTH 15.8 % (11.5-14.0); SEGMENTED NEUTROPHILS % (AUTO) 78.8 % (42-78); WHITE BLOOD COUNT 9.4 10^3/uL (4.0-10.5)
[2017-01-20] MEDS: HEPARIN SOD (PORCINE) 5,000 UNIT/ML 1 ML SYRINGE SUBCUT SCH ×3 (05:29→21:51)
[2017-01-20] MEDS: CARVEDILOL 12.5 MG TABLET PO SCH ×2 (05:29→17:33)
[2017-01-20 05:40] LABS: ANION GAP 9 (5-19); BLOOD UREA NITROGEN 18 mg/dL (7-20); CARBON DIOXIDE 21 mmol/L (22-30); CHLORIDE 108 mmol/L (98-107); CREATININE RESULT 1.62 mg/dL (0.52-1.25); GLUCOSE 108 mg/dL (75-110); MAGNESIUM 1.9 mg/dL (1.6-2.3); POTASSIUM 4.2 mmol/L (3.6-5.0); SODIUM 138.1 mmol/L (137-145)
[2017-01-20 05:48] LABS: CREATINE KINASE MB 0.52 ng/mL (<4.55); TROPONIN I 0.039 ng/mL
[2017-01-20] MEDS: PANTOPRAZOLE SODIUM 40 MG VIAL IV SCH ×2 (09:46→21:52)
--- NOTE | 2017-01-20 13:29 | PDOC PROGRESS REPORT ---
Subjective Progress Note for:: 01/20/17 Subjective:: Patient was seen by the bedside the blood pressure is not controlled, he has hypertensive heart disease CKD stage III, the goal of blood pressure should be below 130/80. Physical Exam Vital Signs: Temp Pulse Resp BP Pulse Ox 98.3 F 65 19 181/89 H 97 01/20/17 11:31 01/20/17 11:31 01/20/17 11:31 01/20/17 11:31 01/20/17 11:31 Intake & Output 01/19/17 01/20/17 01/21/17 06:59 06:59 06:59 Intake Total 785 100 Balance 785 100 Weight 81.6 kg General appearance: PRESENT: no acute distress, well-developed, well-nourished Head exam: PRESENT: atraumatic, normocephalic Eye exam: PRESENT: conjunctiva pink, EOMI, PERRLA. ABSENT: scleral icterus Ear exam: PRESENT: normal external ear exam Mouth exam: PRESENT: moist, tongue midline Neck exam: PRESENT: full ROM Cardiovascular exam: PRESENT: RRR, +S1, +S2 Pulses: PRESENT: normal dorsalis pedis pul, +2 pedal pulses bilateral Vascular exam: PRESENT: normal capillary refill GI/Abdominal exam: PRESENT: normal bowel sounds, soft Rectal exam: PRESENT: deferred Neurological exam: PRESENT: alert, awake, oriented to person, oriented to place , oriented to time, oriented to situation, CN II-XII grossly intact Psychiatric exam: PRESENT: appropriate affect, normal mood Skin exam: PRESENT: dry, intact, warm Results Laboratory Results: 01/20/17 05:05 01/20/17 05:05 01/19/17 01/20/17 01/20/17 17:00 05:05 05:05 WBC 9.4 RBC 6.21 H Hgb 13.5 Hct 40.9 MCV 66 L MCH 21.8 L MCHC 33.0 RDW 15.8 H Plt Count 157 Seg Neutrophils % 78.8 H Lymphocytes % 13.1 Monocytes % 6.0 Eosinophils % 1.4 Basophils % 0.7 Absolute Neutrophils 7.4 Absolute Lymphocytes 1.2 Absolute Monocytes 0.6 Absolute Eosinophils 0.1 Absolute Basophils 0.1 Sodium 138.1 Potassium 4.2 Chloride 108 H Carbon Dioxide 21 L Anion Gap 9 BUN 18 Creatinine 1.62 H Est GFR ( Amer) 56 L Est GFR (Non-Af Amer) 46 L Glucose 108 Lactic Acid 2.0 Calcium 9.0 Magnesium 1.9 01/19/17 01/19/17 01/19/17 17:00 17:00 22:50 Creatine Kinase 108 87 CK-MB (CK-2) 0.74 Troponin I 0.029 01/19/17 01/20/17 01/20/17 22:50 05:05 05:05 Creatine Kinase 70 CK-MB (CK-2) 0.66 0.52 Troponin I 0.036 0.039 Impressions: Chest X-Ray 01/19/17 09:48 IMPRESSION: Cardiomegaly. Lung Scan-VQ NM 01/19/17 14:03 IMPRESSION: NORMAL VENTILATION-PERFUSION LUNG SCAN. NEGATIVE FOR PULMONARY EMBOLI. Chest CT 01/19/17 14:04 IMPRESSION: NO SIGNIFICANT FINDING ON NON-CONTRASTED CHEST CT. Assessment & Plan - Diagnosis (1) Hypertensive heart and chronic kidney disease stage 3 Is this a current diagnosis for this admission?: Yes Plan: Patient will be started on BiDil, amlodipine, lisinopril
[2017-01-20] MEDS ORDERED: LISINOPRIL 10 MG TABLET PO ONE (14:00)
[2017-01-20] MEDS ORDERED: AMLODIPINE BESYLATE 5 MG TABLET PO ONE (14:00)
[2017-01-20] MEDS: ISOSORB DINIT/HYDRALAZINE HCL 20-37.5 MG TABLET PO SCH ×2 (14:17→21:52)
[2017-01-20] MEDS: BUTALB/ACETAMINOPHEN/CAFFEINE 1 TAB EACH PO PRN (21:53)
--- NOTE | 2017-01-20 23:58 | PROGRESS NOTE E ---
Progress Note NAME: GEETHA ADRIAN : 1970 AGE: 46Y DATE: 01/20/2017 ROOM: 314 SUBJECTIVE: Note that the patient's consultation and history and physical and echo reports have been reviewed by me. The patient denies any chest pain or discomfort. There is no PND, orthopnea. There are no palpitations. There is no leg edema. The patient's blood pressure still is not very well-controlled. He was given a dose of amlodipine 5 mg this morning. OBJECTIVE: GENERAL: On examination the patient is well-built and well-nourished, in no acute distress. VITAL SIGNS: He is afebrile with a temperature of 98.3 degrees Fahrenheit, his pulse is 65 beats per minute, blood pressure 181/89, respirations are 19 per minute, O2 saturations are 97% on room air. HEENT: Head is atraumatic, normocephalic. Eyes: Pupils are equal, round and regular, reactive to light and accommodation. Extraocular movements are normal. There is no conjunctival pallor. There is no scleral icterus. Ears: Tympanic membranes are normal. Nares are patent without any inflammation of the nasal mucous membranes. Oropharynx is clear without exudates. Mucous membranes are moist. There are no ulcerations bleeding in the gums noted. NECK: Supple without lymphadenopathy. Carotids are equal without any bruit. Trachea is central. There is no cervical or axillary lymphadenopathy. There is no JVD, the JVD is within normal limits. There are no accessory muscles of respiration used. LUNGS: Clear to auscultation and percussion. HEART: S1 and S2 is heard. S1 is of normal intensity. There is no S3 gallop. There is no S4 gallop. There are no rubs. There is a faint I/ diastolic murmur of aortic regurgitation noted. There is a murmur in the apex with faint radiation to the left axilla. ABDOMEN: Soft without any tenderness. There is no hepatosplenomegaly. Bowel sounds are well-heard. There are no masses. EXTREMITIES: Pedal pulses are mildly reduced. Femorals are mildly reduced. There is no DVT or cellulitis. There is trace pedal edema. CENTRAL NERVOUS SYSTEM: The patient is conscious, awake, alert and oriented x3 with no focal deficits. PSYCHIATRIC: The patient's judgment and insight are intact. His mood is normal. SKIN: There are no skin rashes. There is no ulcers or skin lesions. There is no petechiae. DIAGNOSTIC STUDIES: The patient's echo report done yesterday shows that the left ventricular ejection fraction is normal. There is moderate to severe concentric left ventricular hypertrophy. The left ventricle is grossly normal in size. Doppler measurements suggest *------* of the left ventricle with relaxation which is seen with mild to moderate diastolic dysfunction. Wall motion could not be accurately commented on but no definite regional wall motion abnormality. The right ventricular systolic function is normal. The right atrium is normal. The left atrium is mildly dilated. There is trace of moderate mitral regurgitation. There is no mitral valve stenosis. There is moderate amount of aortic regurgitation which is an eccentric jet of aortic insufficiency directed against the septum. There is trace to mild amount of tricuspid regurgitation. There is mild pulmonary hypertension. By echo right ventricular systolic pressure is estimated at 30-40 mmHg. There is no pericardial effusion. The patient's EKG shows LVH with deep T-wave inversions in the lateral leads and also lead V4 and also in V3. It was probably secondary to LVH. LABORATORY DATA: The patient's sodium is 138.1, potassium 4.2, chloride 108, CO2 is 31. The patient's BUN is 18, creatinine is 1.62, his GFR is greater than 56 mL/min which is chronic kidney disease stage 3. His glucose is 108. His magnesium is 1.9 and his calcium is 9.0. His CPK-MB and troponin I are both negative, the troponin I is 0.039. The patient's white count is 9400, hemoglobin is 13.5, hematocrit is 40.9. The patient's platelet count is 157,000. Note as per Dr. Sabillon's consultation the patient a few months ago had a negative Cardiolite nuclear stress test. IMPRESSION: 1. CHEST PAIN, RESOLVED. MOST LIKELY SECONDARY TO PATIENT'S MODERATE TO SEVERE LVH AND UNCONTROLLED HYPERTENSION. 2. HYPERLIPIDEMIA. The patient is not on any statins. 3. HYPERTENSION, NOT WELL-CONTROLLED. Dr. Irene has adjusted the medications. We will see if we need to start the patient on a regular dose of amlodipine from tomorrow. 4. AORTIC VALVE INCOMPETENCE/REGURGITATION. THERE ARE NO PERIPHERAL SIGNS OF AORTIC REGURGITATION. Would recommend to control the patient's blood pressure which will control the patient's aortic regurgitation. 5. CHRONIC KIDNEY DISEASE STAGE 3, MODERATE. MOST LIKELY SECONDARY TO UNCONTROLLED HYPERTENSION, THAT IS, HYPERTENSIVE KIDNEY DISEASE. 6. CONGESTIVE HEART FAILURE, *------* HEART FAILURE. AT PRESENT SEEMS TO BE CONTROLLED. THIS IS MOST LIKELY SECONDARY TO DIASTOLIC DYSFUNCTION AND LVH. 7. TOBACCO ABUSE. The patient has been recommended to stop smoking. Smoking cessation counseling given. PLAN: Continue the patient's lisinopril and the patient's clonidine. We will see if we need to start the patient on a regular dose of amlodipine. Note review of systems done and medications have been reviewed and discussed with the attending physician. TIME SPENT: Note 30 minutes spent on this patient with more than 50 percent of the time spent on direct patient care. Note, decision making was of moderate medical complexity. We will follow with you. Echo results re-discussed with the patient. The patient is a full code, his friend Ms. Jeannette Burton, is his surrogate healthcare decision maker. DICTATING PHYSICIAN: MANDY CHILDERS M.D. [id number] JOE#: [id number] ID: [id number] JOB#: [id number] ACCT: [id number] cc: >
[2017-01-21 05:04] LABS: ABSOLUTE BASOPHILS # (AUTO) 0.1 10^3/uL (0.0-0.2); ABSOLUTE EOSINOPHILS # (AUTO) 0.1 10^3/uL (0.0-0.6); ABSOLUTE LYMPHOCYTES (AUTO) 1.7 10^3/uL (0.5-4.7); ABSOLUTE MONOCYTES (AUTO) 0.6 10^3/uL (0.1-1.4); ABSOLUTE NEUT (AUTO) 8.2 10^3/uL (1.7-8.2); EOSINOPHILS % (AUTO) 0.9 % (0-6); HEMATOCRIT 42.4 % (37.9-51.0); HEMOGLOBIN 14.1 g/dL (13.5-17.0); HGB HCT DIFFERENCE -0.1; LYMPHOCYTES % (AUTO) 15.9 % (13-45); MEAN CORPUSCULAR HEMOGLOBIN 21.9 pg (27.0-33.4); MEAN CORPUSCULAR HGB CONC 33.2 g/dL (32.0-36.0); MEAN CORPUSCULAR VOLUME 66 fl (80-97); MONOCYTES % (AUTO) 5.9 % (3-13); RED BLOOD COUNT 6.42 10^6/uL (4.35-5.55); RED CELL DISTRIBUTION WIDTH 16.2 % (11.5-14.0); SEGMENTED NEUTROPHILS % (AUTO) 76.3 % (42-78); WHITE BLOOD COUNT 10.8 10^3/uL (4.0-10.5)
[2017-01-21 05:21] LABS: ANION GAP 11 (5-19); BLOOD UREA NITROGEN 23 mg/dL (7-20); CARBON DIOXIDE 21 mmol/L (22-30); CHLORIDE 108 mmol/L (98-107); CREATININE RESULT 1.85 mg/dL (0.52-1.25); GLUCOSE 105 mg/dL (75-110); MAGNESIUM 2.1 mg/dL (1.6-2.3); POTASSIUM 4.3 mmol/L (3.6-5.0); SODIUM 139.7 mmol/L (137-145)
[2017-01-21] MEDS: HEPARIN SOD (PORCINE) 5,000 UNIT/ML 1 ML SYRINGE SUBCUT SCH ×3 (06:49→21:33)
[2017-01-21] MEDS: CARVEDILOL 12.5 MG TABLET PO SCH ×2 (06:49→18:08)
[2017-01-21] MEDS: ISOSORB DINIT/HYDRALAZINE HCL 20-37.5 MG TABLET PO SCH ×3 (06:53→21:34)
[2017-01-21] MEDS ORDERED: AMLODIPINE BESYLATE 5 MG TABLET PO SCH (10:00)
[2017-01-21] MEDS: LISINOPRIL 10 MG TABLET PO SCH (10:03)
[2017-01-21] MEDS: PANTOPRAZOLE SODIUM 40 MG VIAL IV SCH (10:03)
--- NOTE | 2017-01-21 13:48 | PROGRESS NOTE E ---
Progress Note NAME: GEETHA ADRIAN : 1970 AGE: 46Y DATE: 01/21/2017 ROOM: 314 SUBJECTIVE: The patient denies any chest pain or discomfort. There is no PND or orthopnea. There are no palpitations. There is no leg edema. There are no TIA or CVA symptoms. There is no chest pain. The patient's blood pressure is still not very well controlled. Note the patient now is on amlodipine 5 mg p.o. daily. REVIEW OF SYSTEMS: Negative. MEDICATIONS: Have been reviewed, I will increase the patient's amlodipine. OBJECTIVE: GENERAL: On examination, the patient is well built and well nourished, in no acute distress. He is lying down flat and hence has no orthopnea. VITAL SIGNS: He is afebrile with a temperature of 98.3 degrees Fahrenheit. Pulse is 64 beats per minute. Blood pressure is 172/81. Respirations are 21 per minute. O2 saturations are 99% on room air. HEAD: Atraumatic/normocephalic. EYES: Pupils are equal, round, regular, reactive to light and accommodation. Extraocular movements are normal. There is no conjunctival pallor. There is no scleral icterus. EARS: Tympanic membranes are normal. NOSE: Nares are patent without any inflammation of the nasal mucous membranes. THROAT: Oropharynx is clear without any exudates. Mucous membranes of the mouth are moist. There is no ulceration or bleeding from the gums. NECK: Supple without lymphadenopathy. Carotids are equal without any bruit. Trachea is central. There is no cervical or axillary lymphadenopathy. There is no JVD. There are no accessory muscles of respiration used. There is no goiter. There is no significant adenopathy. LUNGS: Clear to auscultation and percussion. HEART: S1 and S2 are heard. S1 is of normal intensity. There is no S3 gallop. There is no S4 gallop. There are no rubs. There is a faint I/IV diastolic murmur of aortic regurgitation noted. There is a murmur in the apex with faint radiation to the axilla. ABDOMEN: Soft without any tenderness. There is no hepatosplenomegaly. Bowel sounds are well heard. There is no noted mass. EXTREMITIES: Pedal pulses are mildly reduced. Femorals are mildly reduced. There is no femoral bruit. There is no DVT or cellulitis. There is no pedal edema. There is no cyanosis or clubbing. There is no calf tenderness. CENTRAL NERVOUS SYSTEM: The patient is conscious, awake, alert, and oriented x3 with no focal deficits. PSYCHIATRIC: The patient's judgement and insight are intact. His affect is normal. FLUID BALANCE: The patient's intake and output is not accurate. DIAGNOSTIC DATA: The patient's white count is 10,800, hemoglobin is 14.1, hematocrit is 42.4, and platelet count is 171,000. The patient's sodium is 139.7, potassium is 4.3, chloride is 108, CO2 is 21. The patient's BUN is 23, creatinine is 1.85, GFR is reduced to 48 mL which is chronic kidney disease stage 3. The patient's glucose is 105. The patient's calcium is 9, and the patient's magnesium is 2.1. IMPRESSION: 1. THE PATIENT'S CHEST PAIN IS RESOLVED, MOST LIKELY SECONDARY TO PATIENT'S MODERATE TO SEVERE LVH AND UNCONTROLLED HYPERTENSION. THE PATIENT HAD A NEGATIVE STRESS TEST. 2. HYPERLIPIDEMIA. THE PATIENT IS NOT ON ANY STATINS. 3. HYPERTENSION, NOT WELL CONTROLLED. WE WILL INCREASE THE PATIENT'S AMLODIPINE TO 5 MG P.O. Q.12 H. 4. AORTIC VALVE INCOMPETENCE/REGURGITATION. THERE ARE NO PERIPHERAL SIGNS OF AORTIC REGURGITATION. WOULD RECOMMEND TO CONTROL THE PATIENT'S BLOOD PRESSURE TO LESSEN THE PATIENT'S AORTIC REGURGITATION. 5. CHRONIC KIDNEY DISEASE STAGE 3, MODERATE, MOST LIKELY SECONDARY TO UNCONTROLLED HYPERTENSION, THAT IS HYPERTENSIVE CONTINGENCY. 6. CONGESTIVE HEART FAILURE, AT PRESENT SEEMS TO BE COMPENSATED AND IS MOST LIKELY SECONDARY TO DIASTOLIC DYSFUNCTION, LVH, AND UNCONTROLLED HYPERTENSION. 7. TOBACCO ABUSE. THE PATIENT HAS BEEN RECOMMENDED TO STOP SMOKING, AND SMOKING CESSATION COUNSELING GIVEN. RECOMMENDATIONS: Continue the patient's Isordil and the patient's clonidine. Also, the patient is on chronic *------*. Will increase the patient's amlodipine to 5 mg p.o. q.12 h. I will follow with you. Note, 35 minutes were spent on this patient with more than 50% of the time spent on direct patient care. His medications have been reviewed and changed; that is the amlodipine has been up dosed. Will follow with you. Discussed with Dr. Irene. DICTATING PHYSICIAN: MANDY CHILDERS M.D. [id number] PHY#: [id number] ID: [id number] JOB#: [id number] ACCT: [id number] cc:MANDY CHILDERS M.D. >
--- NOTE | 2017-01-21 20:21 | PDOC PROGRESS REPORT ---
Subjective Progress Note for:: 01/21/17 Subjective:: He was seen by the bedside, he was also seen by cardiology yesterday the blood pressure medication was adjusted the blood pressure is still high, the dose of amlodipine was increased to 10 mg today Physical Exam Vital Signs: Temp Pulse Resp BP Pulse Ox 98.5 F 64 20 165/84 H 99 01/21/17 16:25 01/21/17 16:25 01/21/17 16:25 01/21/17 16:25 01/21/17 16:25 Intake & Output 01/20/17 01/21/17 01/22/17 06:59 06:59 06:59 Intake Total 785 1527 362 Balance 785 1527 362 Weight 81.6 kg 81.3 kg General appearance: PRESENT: no acute distress, well-developed, well-nourished Head exam: PRESENT: atraumatic, normocephalic Eye exam: PRESENT: conjunctiva pink, EOMI, PERRLA. ABSENT: scleral icterus Ear exam: PRESENT: normal external ear exam Mouth exam: PRESENT: moist, tongue midline Neck exam: PRESENT: full ROM. ABSENT: carotid bruit, JVD, lymphadenopathy, thyromegaly Cardiovascular exam: PRESENT: RRR, +S1, +S2 Pulses: PRESENT: normal dorsalis pedis pul, +2 pedal pulses bilateral Vascular exam: PRESENT: normal capillary refill GI/Abdominal exam: PRESENT: normal bowel sounds, soft Rectal exam: PRESENT: deferred Neurological exam: PRESENT: alert, awake, oriented to person, oriented to place , oriented to time, oriented to situation, CN II-XII grossly intact. ABSENT: motor sensory deficit Psychiatric exam: PRESENT: appropriate affect, normal mood. ABSENT: homicidal ideation, suicidal ideation Skin exam: PRESENT: dry, intact, warm. ABSENT: cyanosis, rash Results Laboratory Results: 01/21/17 04:29 01/21/17 04:29 01/21/17 01/21/17 04:29 04:29 WBC 10.8 H RBC 6.42 H Hgb 14.1 Hct 42.4 MCV 66 L MCH 21.9 L MCHC 33.2 RDW 16.2 H Plt Count 171 Seg Neutrophils % 76.3 Lymphocytes % 15.9 Monocytes % 5.9 Eosinophils % 0.9 Basophils % 1.0 Absolute Neutrophils 8.2 Absolute Lymphocytes 1.7 Absolute Monocytes 0.6 Absolute Eosinophils 0.1 Absolute Basophils 0.1 Sodium 139.7 Potassium 4.3 Chloride 108 H Carbon Dioxide 21 L Anion Gap 11 BUN 23 H Creatinine 1.85 H Est GFR ( Amer) 48 L Est GFR (Non-Af Amer) 40 L Glucose 105 Calcium 9.0 Magnesium 2.1 01/19/17 01/19/17 01/19/17 17:00 17:00 22:50 Creatine Kinase 108 87 CK-MB (CK-2) 0.74 Troponin I 0.029 01/19/17 01/20/17 01/20/17 22:50 05:05 05:05 Creatine Kinase 70 CK-MB (CK-2) 0.66 0.52 Troponin I 0.036 0.039 Impressions: Chest X-Ray 01/19/17 09:48 IMPRESSION: Cardiomegaly. Lung Scan-VQ NM 01/19/17 14:03 IMPRESSION: NORMAL VENTILATION-PERFUSION LUNG SCAN. NEGATIVE FOR PULMONARY EMBOLI. Chest CT 01/19/17 14:04 IMPRESSION: NO SIGNIFICANT FINDING ON NON-CONTRASTED CHEST CT. Assessment & Plan - Diagnosis (1) Hypertensive heart and chronic kidney disease stage 3 Is this a current diagnosis for this admission?: Yes Plan: Continue present medication regimen
[2017-01-21] MEDS: AMLODIPINE BESYLATE 5 MG TABLET PO SCH (21:34)
[2017-01-21] MEDS ORDERED: PANTOPRAZOLE SODIUM 40 MG VIAL IV SCH (22:00)
[2017-01-22 05:18] LABS: ABSOLUTE EOSINOPHILS # (AUTO) 0.1 10^3/uL (0.0-0.6); ABSOLUTE LYMPHOCYTES (AUTO) 2.2 10^3/uL (0.5-4.7); ABSOLUTE MONOCYTES (AUTO) 0.7 10^3/uL (0.1-1.4); ABSOLUTE NEUT (AUTO) 7.7 10^3/uL (1.7-8.2); BASOPHILS % (AUTO) 0.2 % (0-2); EOSINOPHILS % (AUTO) 1.4 % (0-6); HEMOGLOBIN 13.6 g/dL (13.5-17.0); HGB HCT DIFFERENCE -1.2; LYMPHOCYTES % (AUTO) 20.6 % (13-45); MEAN CORPUSCULAR HEMOGLOBIN 21.6 pg (27.0-33.4); MEAN CORPUSCULAR HGB CONC 32.4 g/dL (32.0-36.0); MEAN CORPUSCULAR VOLUME 67 fl (80-97); MONOCYTES % (AUTO) 6.2 % (3-13); RED BLOOD COUNT 6.29 10^6/uL (4.35-5.55); RED CELL DISTRIBUTION WIDTH 15.8 % (11.5-14.0); SEGMENTED NEUTROPHILS % (AUTO) 71.6 % (42-78); WHITE BLOOD COUNT 10.8 10^3/uL (4.0-10.5)
[2017-01-22] MEDS: CARVEDILOL 12.5 MG TABLET PO SCH ×2 (05:19→18:55)
[2017-01-22] MEDS: HEPARIN SOD (PORCINE) 5,000 UNIT/ML 1 ML SYRINGE SUBCUT SCH ×3 (05:19→22:32)
[2017-01-22] MEDS: ISOSORB DINIT/HYDRALAZINE HCL 20-37.5 MG TABLET PO SCH ×3 (05:19→22:32)
[2017-01-22 05:34] LABS: ANION GAP 10 (5-19); BLOOD UREA NITROGEN 32 mg/dL (7-20); CALCIUM 9.2 mg/dL (8.4-10.2); CARBON DIOXIDE 24 mmol/L (22-30); CHLORIDE 107 mmol/L (98-107); GLUCOSE 96 mg/dL (75-110); MAGNESIUM 2.1 mg/dL (1.6-2.3); POTASSIUM 4.4 mmol/L (3.6-5.0); SODIUM 140.7 mmol/L (137-145)
[2017-01-22] MEDS ORDERED: ONDANSETRON HCL INJ/PF 4 MG/2 ML SDV IV PRN (08:30)
[2017-01-22] MEDS ORDERED: IPRATROPIUM/ALBUTEROL 0.5-2.5 MG/3 ML AMPUL NEB PRN (08:30)
[2017-01-22] MEDS ORDERED: INFLUENZA ADLT QUAD (36MOS+) 2017-18 VAC 0.5 ML SYR IM PRN (08:30)
[2017-01-22] MEDS ORDERED: ACETAMINOPHEN 325 MG TABLET PO PRN (08:30)
--- NOTE | 2017-01-22 08:48 | PDOC PROGRESS REPORT ---
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 on the weekends Patient seen by cardiology and adjust the blood pressures medications Patient was complaining some mild headache but denied any visual problem denied any weakness denied any chest pain and no short of breath Patients walk in the hallway without any problems Physical Exam Vital Signs: Temp Pulse Resp BP Pulse Ox 98.3 F 57 L 18 157/85 H 100 01/22/17 04:44 01/22/17 04:44 01/22/17 04:44 01/22/17 04:44 01/22/17 04:44 Intake & Output 01/21/17 01/22/17 01/23/17 06:59 06:59 06:59 Intake Total 1527 377 Balance 1527 377 Weight 81.3 kg 81 kg General appearance: PRESENT: no acute distress, well-developed, well-nourished Head exam: PRESENT: atraumatic, normocephalic Eye exam: PRESENT: conjunctiva pink, EOMI, PERRLA. ABSENT: scleral icterus Ear exam: PRESENT: normal external ear exam Mouth exam: PRESENT: moist, tongue midline Neck exam: PRESENT: full ROM. ABSENT: carotid bruit, JVD, lymphadenopathy, thyromegaly Respiratory exam: PRESENT: clear to auscultation oly Cardiovascular exam: PRESENT: RRR. ABSENT: diastolic murmur, rubs, systolic murmur Pulses: PRESENT: normal dorsalis pedis pul, +2 pedal pulses bilateral Vascular exam: PRESENT: normal capillary refill GI/Abdominal exam: PRESENT: normal bowel sounds, soft. ABSENT: distended, guarding, mass, organolmegaly, rebound, tenderness Rectal exam: PRESENT: deferred Extremities exam: ABSENT: pedal edema Musculoskeletal exam: PRESENT: ambulatory Neurological exam: PRESENT: alert, awake, oriented to person, oriented to place , oriented to time, oriented to situation, reflexes normal, CN II-XII grossly intact, normal gait. ABSENT: motor sensory deficit Psychiatric exam: PRESENT: appropriate affect, normal mood. ABSENT: homicidal ideation, suicidal ideation Skin exam: PRESENT: dry, intact, warm. ABSENT: cyanosis, rash Results Laboratory Results: 01/22/17 04:39 01/22/17 04:39 01/22/17 01/22/17 04:39 04:39 WBC 10.8 H RBC 6.29 H Hgb 13.6 Hct 42.0 MCV 67 L MCH 21.6 L MCHC 32.4 RDW 15.8 H Plt Count 154 Seg Neutrophils % 71.6 Lymphocytes % 20.6 Monocytes % 6.2 Eosinophils % 1.4 Basophils % 0.2 Absolute Neutrophils 7.7 Absolute Lymphocytes 2.2 Absolute Monocytes 0.7 Absolute Eosinophils 0.1 Absolute Basophils 0.0 Sodium 140.7 Potassium 4.4 Chloride 107 Carbon Dioxide 24 Anion Gap 10 BUN 32 H Creatinine 2.10 H Est GFR ( Amer) 41 L Est GFR (Non-Af Amer) 34 L Glucose 96 Calcium 9.2 Magnesium 2.1 01/19/17 01/19/17 01/19/17 17:00 17:00 22:50 Creatine Kinase 108 87 CK-MB (CK-2) 0.74 Troponin I 0.029 01/19/17 01/20/17 01/20/17 22:50 05:05 05:05 Creatine Kinase 70 CK-MB (CK-2) 0.66 0.52 Troponin I 0.036 0.039 Impressions: Chest X-Ray 01/19/17 09:48 IMPRESSION: Cardiomegaly. Lung Scan-VQ NM 01/19/17 14:03 IMPRESSION: NORMAL VENTILATION-PERFUSION LUNG SCAN. NEGATIVE FOR PULMONARY EMBOLI. Chest CT 01/19/17 14:04 IMPRESSION: NO SIGNIFICANT FINDING ON NON-CONTRASTED CHEST CT. Assessment & Plan - Diagnosis (1) Chest pain, unspecified Qualifiers: Chest pain type: unspecified Qualified Code(s): R07.9 - Chest pain, unspecified Is this a current diagnosis for this admission?: Yes Plan: All cardiac workup is negative patient is currently chest pain resolved (2) Chronic kidney disease Qualifiers: Chronic kidney disease stage: stage 3 (moderate) Qualified Code(s): N18.3 - Chronic kidney disease, stage 3 (moderate) Is this a current diagnosis for this admission?: Yes Plan: We will consult to Dr. Liao for further evaluations (3) Hypertension Qualifiers: Hypertension type: essential hypertension Qualified Code(s): I10 - Essential (primary) hypertension Is this a current diagnosis for this admission?: Yes Plan: Patient's blood pressure is very labile currently stable (4) Congestive heart failure (CHF) Qualifiers: Congestive heart failure type: unspecified congestive heart failure type Congestive heart failure chronicity: chronic Qualified Code(s): I50.9 - Heart failure, unspecified Is this a current diagnosis for this admission?: Yes Plan: Recent echocardiogram on the October [address] Sabillon's with the EF is 50-60% (5) Hyperlipidemia Qualifiers: Hyperlipidemia type: unspecified Qualified Code(s): E78.5 - Hyperlipidemia , unspecified Is this a current diagnosis for this admission?: Yes Plan: Continues to current medications (6) Aortic valve incompetence Qualifiers: Cardiac valve disease etiology: etiology unspecified Qualified Code(s): I35.1 - Nonrheumatic aortic (valve) insufficiency Is this a current diagnosis for this admission?: Yes Plan: We will get another echocardiogram while patient was shortness of the breath - Time Time Spent with patient: 15-24 minutes Medications reviewed and adjusted accordingly: Yes Anticipated discharge: Home Within: Other - Inpatient Certification Medical Necessity: Need Close Monitoring Due to Risk of Patient Decompensation Post Hospital Care: D/C [facility] Documentation - Plan Summary Plan Summary: We will wait for the nephrology consult also get the MRI of the head
[2017-01-22] MEDS: AMLODIPINE BESYLATE 5 MG TABLET PO SCH ×2 (09:28→22:32)
[2017-01-22] MEDS: LISINOPRIL 10 MG TABLET PO SCH (09:29)
--- NOTE | 2017-01-22 11:57 | PDOC CONSULTATION ---
Consultation Consult Date: 01/22/17 Consult reason:: ckd/labile bp History of Present Illness Admission Date/PCP: 01/19/17 14:00 KAYLEEN MCCRARY MD History of Present Illness: GEETHA ADRIAN is a 46 year old male with history CKD 3 and HTN. He visited Dr. Mccrary's office, at his office his bp was in the low 200s systolic. At the time he was having a headache, SOB, chest pain and blurred vision. He was given 0.1mg of clonidine at Dr. Mccrary's office. He was sent to the ER by ambulance. The patient has history of noncompliance. In the emergency department he has initial cardiac enzyme and EKG and a d-dimer , which was all normal. Patient was given nitroglycerin and patient's chest pain is pretty much relieved. He was discharged from the ER o 01/18/17 and came back the next day. Since being in the hospital he has also had an echo of his heart which shows hypertrophy of the cardiac muscles. VQ scan was also done and this was negative. Last renal artery study was done two years ago. He is also seen by Dr Sabillon and patient had a stress test and echocardiogram was done in October 2016 and was all stable He missed his last appointment with me and he has several others at Dr. Liao office, showing a pattern of noncompliance. Patient also using the marijuana Patient is not taking his clonidine patch since last couple of months and according to the patient when he was on a clonidine patch and was working very well. Patient also noticed when he take this all his blood pressure medications patients feel dizzy and not feeling well but not sure which medications. Currently has no chest pain, SOB, blurred vision or a headache. BP has remained in the 140 to 150s on current bp medication regiment. Past Medical History Cardiac Medical History: Reports: Hyperlipidemia Pulmonary Medical History: Reports: Chronic Obstructive Pulmonary Disease (COPD) Renal/ Medical History: Reports: Chronic Kidney Disease Stage III GI Medical History: Reports: Gastroesophageal Reflux Disease Past Surgical History Past Surgical History: Reports: Cardiac Catheterization Social History Smoking Status: Current Every Day Smoker Cigarettes Packs Per Day: 0 Frequency of Alcohol Use: None Hx Recreational Drug Use: Yes Drugs: Marijuana Hx Prescription Drug Abuse: No - Advance Directive Resuscitation Status: Full Code Family History Parental Family History Reviewed: No Children Family History Reviewed: No Sibling(s) Family History Reviewed.: No Medication/Allergy Home Medications: Carvedilol [Coreg 25 mg Tablet] 50 mg PO Q12 01/19/17 Doxazosin Mesylate [Cardura 4 mg Tablet] 4 mg PO DAILY 01/19/17 Isosorbide Mononitrate [Imdur 60 mg Tablet.er] 60 mg PO DAILY 01/19/17 Nifedipine [Nifedipine ER] 90 mg PO Q12 01/19/17 Allergies/Adverse Reactions: No Known Allergies Allergy (Verified 01/19/17 08:28) Review of Systems Constitutional: PRESENT: headache(s). ABSENT: chills, fever(s), weakness Eyes: PRESENT: visual disturbances Ears: PRESENT: hearing changes Nose, Mouth, and Throat: PRESENT: headache(s) Cardiovascular: PRESENT: chest pain. ABSENT: edema, orthropnea, palpitations Respiratory: PRESENT: dyspnea Gastrointestinal: ABSENT: constipation, diarrhea, nausea, vomiting Genitourinary: ABSENT: dysuria, hematuria Musculoskeletal: ABSENT: deformity, joint swelling, muscle weakness Integumentary: ABSENT: rash Neurological: ABSENT: dizziness, focal weakness, numbness, weakness Physical Exam Vital Signs: Temp Pulse Resp BP Pulse Ox 98.2 F 61 16 148/75 H 99 01/22/17 07:25 01/22/17 07:25 01/22/17 07:25 01/22/17 07:25 01/22/17 07:25 Intake & Output 01/21/17 01/22/17 01/23/17 06:59 06:59 06:59 Intake Total 1527 377 Balance 1527 377 Weight 81.3 kg 81 kg General appearance: PRESENT: no acute distress, well-developed, well-nourished Head exam: PRESENT: atraumatic, normocephalic Eye exam: PRESENT: conjunctiva pink, EOMI, PERRLA. ABSENT: scleral icterus Mouth exam: PRESENT: moist, tongue midline Neck exam: ABSENT: carotid bruit, JVD, tracheal deviation Respiratory exam: PRESENT: clear to auscultation oly. ABSENT: accessory muscle use, chest wall tenderness, crackles, rhonchi, wheezes Cardiovascular exam: PRESENT: RRR, +S1, +S2 GI/Abdominal exam: PRESENT: normal bowel sounds, soft. ABSENT: diminished bowel sounds, distended, guarding, hyperactive bowel sounds, hypoactive bowel sounds, tenderness Extremities exam: ABSENT: joint swelling, pedal edema, tenderness Musculoskeletal exam: PRESENT: normal inspection. ABSENT: deformity, tenderness Neurological exam: PRESENT: alert, awake, oriented to person, oriented to place , oriented to time, oriented to situation Skin exam: PRESENT: intact. ABSENT: cyanosis, rash Results Laboratory Results: 01/22/17 04:39 01/22/17 04:39 01/22/17 01/22/17 04:39 04:39 WBC 10.8 H RBC 6.29 H Hgb 13.6 Hct 42.0 MCV 67 L MCH 21.6 L MCHC 32.4 RDW 15.8 H Plt Count 154 Seg Neutrophils % 71.6 Lymphocytes % 20.6 Monocytes % 6.2 Eosinophils % 1.4 Basophils % 0.2 Absolute Neutrophils 7.7 Absolute Lymphocytes 2.2 Absolute Monocytes 0.7 Absolute Eosinophils 0.1 Absolute Basophils 0.0 Sodium 140.7 Potassium 4.4 Chloride 107 Carbon Dioxide 24 Anion Gap 10 BUN 32 H Creatinine 2.10 H Est GFR ( Amer) 41 L Est GFR (Non-Af Amer) 34 L Glucose 96 Calcium 9.2 Magnesium 2.1 01/19/17 01/19/17 01/19/17 17:00 17:00 22:50 Creatine Kinase 108 87 CK-MB (CK-2) 0.74 Troponin I 0.029 01/19/17 01/20/17 01/20/17 22:50 05:05 05:05 Creatine Kinase 70 CK-MB (CK-2) 0.66 0.52 Troponin I 0.036 0.039 Impressions: Chest X-Ray 01/19/17 09:48 IMPRESSION: Cardiomegaly. Lung Scan-VQ NM 01/19/17 14:03 IMPRESSION: NORMAL VENTILATION-PERFUSION LUNG SCAN. NEGATIVE FOR PULMONARY EMBOLI. Chest CT 01/19/17 14:04 IMPRESSION: NO SIGNIFICANT FINDING ON NON-CONTRASTED CHEST CT. Assessment & Plan - Diagnosis (1) Hypertension Qualifiers: Hypertension type: essential hypertension Qualified Code(s): I10 - Essential (primary) hypertension Is this a current diagnosis for this admission?: Yes Plan: Will get a new renal ultrasound/vascular study to rule out renal artery stenosis. Continue on current bp medications, would like to keep bp in the 140s to 150s area for a couple of days. Then will look into tightening down on bp. Advised patient about compliance with bp medications. (2) Chronic kidney disease Qualifiers: Chronic kidney disease stage: stage 3 (moderate) Qualified Code(s): N18.3 - Chronic kidney disease, stage 3 (moderate) Is this a current diagnosis for this admission?: Yes Plan: Creatinine is slightly elevated from base line, most likely do to htn and poor hydration. Advised patient on better hydration and compliance of medications. (3) Chest pain, unspecified Qualifiers: Chest pain type: unspecified Qualified Code(s): R07.9 - Chest pain, unspecified Is this a current diagnosis for this admission?: Yes Plan: currently resolved
[2017-01-22] MEDS: BUTALB/ACETAMINOPHEN/CAFFEINE 1 TAB EACH PO PRN (19:18)
--- NOTE | 2017-01-22 22:13 | RADIOLOGY REPORT (SQ) ---
EXAM DESCRIPTION: MRI HEAD WITHOUT COMPLETED DATE/TIME: 01/22/2017 6:13 pm REASON FOR STUDY: headache COMPARISON: None. TECHNIQUE: Multiplanar imaging includes non-contrasted T1, T2, FLAIR, and Diffusion with ADC map seq uences. Images stored on PACS. LIMITATIONS: None. FINDINGS: ANATOMY: No anomalies. Normal vascular flow voids. Pituitary fossa normal. CSF SPACES: Normal in size and contour. No hemorrhage. CEREBRUM: Scattered small high-signal intensity lesions scattered throughout the white matter on FLAI R imaging. Sulci and gyri normal in size and contour. No evidence of hemorrhage, mass or extraaxial fluid collection. POSTERIOR FOSSA: No signal alteration. No hemorrhage. No edema, masses or mass effect. Internal sacha tory canals, cerebello-pontine angles, mastoids normal. DIFFUSION: Negative for acute or sub-acute infarction. ORBITS: No masses. Globes normal. PARANASAL SINUSES: No fluid levels. Minimal maxillary mucosal thickening. OTHER: No other significant finding. IMPRESSION: Scattered small high-signal intensity lesions scattered throughout the white matter on F LAIR imaging, these are nonspecific findings and can be seen with small vessel ischemic conditions in cluding migraine headaches, also demyelinating disorders are in the differential consideration. EVIDENCE OF ACUTE STROKE: NO. TECHNICAL DOCUMENTATION: JOB ID: [id number] [employer]- All Rights Reserved
--- NOTE | 2017-01-22 23:33 | PROGRESS NOTE E ---
Progress Note NAME: GEETHA ADRIAN : 1970 AGE: 46Y DATE: 01/22/2017 ROOM: 314 SUBJECTIVE: The patient denies any chest pain or discomfort. There is no PND, orthopnea. There are no palpitations. There is no leg edema. There is no TIA or CVA symptoms. The patient's blood pressure is spiking up. Also the patient is complaining of a headache. REVIEW OF SYSTEMS: The rest of the review of systems is negative. MEDICATIONS: Have been reviewed. OBJECTIVE: GENERAL: On examination the patient is well-built and well-nourished, in no acute distress. VITAL SIGNS: Earlier his blood pressure as 148/75, at present his blood pressure has gone up to 173/75. Heart rate is 59 beats per minute, respirations are 18 per minute, O2 saturations are 99% on room air. HEENT: Head is atraumatic, normocephalic. Eyes: Pupils are equal, round, regular, reactive to light and accommodation. Extraocular movements are normal. There is no conjunctival pallor. There is no scleral icterus. Ears: Tympanic membranes are normal. Nares are patent without any inflammation of the nasal mucous membranes. Throat: Oropharynx is clear without any exudates. Mucous membranes of the mouth are moist. There is no ulceration or bleeding from the gums. NECK: Supple without lymphadenopathy. There is no JVD. Carotids are equal without any bruit. Trachea is central. There is no cervical or axillary lymphadenopathy. There are no accessory muscles of respiration used. There is no goiter. LUNGS: Are clear to auscultation and percussion. HEART: S1 and S2 is heard. There is no S3 gallop. There is no S4 gallop. S1 is of normal intensity. There is a faint murmur of aortic regurgitation heard which is I/ diastolic murmur. There is a murmur in the apex with faint radiation to the axilla. There are no gallops, there are no rubs. ABDOMEN: Soft without any tenderness. There is no hepatosplenomegaly. Bowel sounds are well heard. There is no noted masses. EXTREMITIES: Pedal pulses are mildly reduced. Femorals are slightly reduced. There is no femoral bruit. There is no DVT or cellulitis. There is no pedal edema. There is no cyanosis or clubbing. There is no calf tenderness. CENTRAL NERVOUS SYSTEM: The patient is conscious, awake, alert, and oriented x3 with no focal deficits. PSYCHIATRIC: The patient's judgement and insight are intact. His affect is normal. FLUID BALANCE: Is not accurate. DIAGNOSTIC DATA: White count of 10,800; hemoglobin is 13.6; platelet count is 144,000. His hematocrit is 42. The patient's sodium is 140.7, potassium is 4.4, chloride is 107, CO2 is 24. The patient's BUN is 32, creatinine is 2.10, GFR is reduced to 41 mL per minute which is chronic kidney disease stage 3. The patient's blood sugar is 96. Calcium is 9.2, magnesium is 2.1. IMPRESSION: 1. THE PATIENT'S CHEST PAIN IS RESOLVED, MOST LIKELY SECONDARY TO PATIENT'S MODERATE TO SEVERE LVH AND UNCONTROLLED HYPERTENSION. THE PATIENT HAD A NEGATIVE STRESS TEST. 2. HEADACHE ? ETIOLOGY. MRI has been ordered. 3. HYPERTENSION, WHICH SPIKES EVERY NOW AND THEN AND ESPECIALLY WITH THE PATIENT'S RENAL DYSFUNCTION AND THE PATIENT'S SEVERE HYPERTENSION ON ADMISSION. I will order renal Dopplers bilaterally. 4. AORTIC VALVE INCOMPETENCE/REGURGITATION. THERE ARE NO PERIPHERAL SIGNS OF AORTIC REGURGITATION. Would recommend to control the blood pressure well to lessen the patient's aortic regurgitation. 5. CHRONIC KIDNEY DISEASE STAGE 3, MODERATE, MOST LIKELY SECONDARY TO UNCONTROLLED HYPERTENSION. But, in view of the patient's blood pressure spiking every now and then would recommend that the patient have renal Dopplers bilaterally to make sure that the patient has no renal artery stenosis, also would recommend that the patient have a nephrology consult, which is being ordered. 6. CONGESTIVE HEART FAILURE, AT PRESENT SEEMS TO BE COMPENSATED AND IS MOST LIKELY SECONDARY TO DIASTOLIC DYSFUNCTION, LVH, AND UNCONTROLLED HYPERTENSION. 7. TOBACCO ABUSE. The patient has been recommended to stop smoking. RECOMMENDATIONS: Continue the patient's Isordil and the patient's clonidine. Also, the patient's amlodipine has been increased to 5 mg p.o. q.12 hours. The patient also had a small dose of lisinopril and also the patient's Coreg is at 25 mg p.o. q.12 hours. Note 35 minutes were spent on this patient, also his medications have been reviewed and after discussion with the attending physician I have ordered bilateral renal Dopplers to make sure the patient has no renal artery stenosis. I have also requested a nephrology consult. *------* the patient's is ordered an MRI, the results of which are pending. Renal artery Dopplers have not yet been done. Note 35 minutes spent on this patient with more than 50% of the time spent on direct patient care, review of his medications, and review of his management plan and also this case involves highly complex medical decision making in view of the patient's blood pressure being uncontrolled and in light of the patient's renal failure. Dr. Sabillon will follow the patient in the morning. DICTATING PHYSICIAN: MANDY CHILDERS M.D. [id number] PHY#: [id number] ID: [id number] JOB#: [id number] ACCT: [id number] cc: >
--- NOTE | 2017-01-23 00:29 | RADIOLOGY REPORT (SQ) ---
EXAM DESCRIPTION: U/S LTD DUPLEX ART/LORNE FLOW COMPLETED DATE/TIME: 01/22/2017 11:42 pm REASON FOR STUDY: HTN/CKD: Renal Artery Stenosis with Doppler COMPARISON: Renal Doppler ultrasound 03/27/2015. TECHNIQUE: Grayscale images acquired. Selected color Doppler, velocities and spectral images recorde d. LIMITATIONS: None. FINDINGS: RIGHT KIDNEY: RENAL ARTERY VELOCITIES: 58.9 cm/sec. Segmental artery velocity 28.0 cm/sec. RENAL VEIN: patent. VELOCITY RATIO: 0.43. Normal waveforms. KIDNEY: Measures 9.9 cm. No hydronephrosis. LEFT KIDNEY: RENAL ARTERY VELOCITIES: 34.6 cm/sec. Segmental artery velocity 23.9 cm/sec. RENAL VEIN: patent. VELOCITY RATIO: 0.25. Normal waveforms. KIDNEY: Measures 10.3 cm. No hydronephrosis. BLADDER: Partially distended. The left ureteral jet was noted. IMPRESSION: NO DOPPLER EVIDENCE OF HEMODYNAMICALLY SIGNIFICANT RENAL ARTERY STENOSIS. COMMENT: NORMAL RENAL ARTERY/AORTA VELOCITY RATIO IS LESS THAN OR EQUAL TO 3.5. TECHNICAL DOCUMENTATION: JOB ID: [id number]- All Rights Reserved
[2017-01-23 05:44] LABS: ANION GAP 10 (5-19); BLOOD UREA NITROGEN 32 mg/dL (7-20); CALCIUM 9.5 mg/dL (8.4-10.2); CARBON DIOXIDE 22 mmol/L (22-30); CHLORIDE 107 mmol/L (98-107); CREATININE RESULT 1.81 mg/dL (0.52-1.25); GLUCOSE 87 mg/dL (75-110); POTASSIUM 4.5 mmol/L (3.6-5.0); SODIUM 138.7 mmol/L (137-145)
[2017-01-23 05:50] LABS: ABSOLUTE BASOPHILS # (AUTO) 0.1 10^3/uL (0.0-0.2); ABSOLUTE EOSINOPHILS # (AUTO) 0.2 10^3/uL (0.0-0.6); ABSOLUTE LYMPHOCYTES (AUTO) 2.5 10^3/uL (0.5-4.7); ABSOLUTE MONOCYTES (AUTO) 0.6 10^3/uL (0.1-1.4); ABSOLUTE NEUT (AUTO) 6.1 10^3/uL (1.7-8.2); EOSINOPHILS % (AUTO) 2.1 % (0-6); HEMOGLOBIN 13.4 g/dL (13.5-17.0); HGB HCT DIFFERENCE 0.2; LYMPHOCYTES % (AUTO) 25.9 % (13-45); MEAN CORPUSCULAR HGB CONC 33.4 g/dL (32.0-36.0); MEAN CORPUSCULAR VOLUME 66 fl (80-97); MONOCYTES % (AUTO) 6.2 % (3-13); RED BLOOD COUNT 6.09 10^6/uL (4.35-5.55); RED CELL DISTRIBUTION WIDTH 15.3 % (11.5-14.0); SEGMENTED NEUTROPHILS % (AUTO) 64.8 % (42-78); WHITE BLOOD COUNT 9.5 10^3/uL (4.0-10.5)
[2017-01-23] MEDS: ISOSORB DINIT/HYDRALAZINE HCL 20-37.5 MG TABLET PO SCH ×3 (06:18→21:47)
[2017-01-23] MEDS: LANSOPRAZOLE 30 MG TAB.RAP.DR PO SCH (06:19)
[2017-01-23] MEDS: HEPARIN SOD (PORCINE) 5,000 UNIT/ML 1 ML SYRINGE SUBCUT SCH ×3 (06:19→21:47)
--- NOTE | 2017-01-23 09:02 | PDOC PROGRESS REPORT ---
Subjective Progress Note for:: 01/23/17 Subjective:: Patient is currently doing well. Patient's denied any chest pain denied any shortness of the breath Patient's denied any headache this morning Patient's MRI of the head shows some chronic microvascular changes but other than that no other acute findingIs likely uncontrolled high blood pressures Patient seen by the nephrology vascular ultrasound was all stable Physical Exam Vital Signs: Temp Pulse Resp BP Pulse Ox 98.6 F 68 14 160/79 H 99 01/23/17 08:32 01/23/17 08:32 01/23/17 08:32 01/23/17 08:32 01/23/17 08:32 Intake & Output 01/22/17 01/23/17 01/24/17 06:59 06:59 06:59 Intake Total 377 1241 Balance 377 1241 Weight 81 kg 80.1 kg General appearance: PRESENT: no acute distress, well-developed, well-nourished Head exam: PRESENT: atraumatic, normocephalic Eye exam: PRESENT: conjunctiva pink, EOMI, PERRLA. ABSENT: scleral icterus Ear exam: PRESENT: normal external ear exam Mouth exam: PRESENT: moist, tongue midline Neck exam: PRESENT: full ROM. ABSENT: carotid bruit, JVD, lymphadenopathy, thyromegaly Respiratory exam: PRESENT: clear to auscultation oly Cardiovascular exam: PRESENT: RRR. ABSENT: diastolic murmur, rubs, systolic murmur Pulses: PRESENT: normal dorsalis pedis pul, +2 pedal pulses bilateral Vascular exam: PRESENT: normal capillary refill GI/Abdominal exam: PRESENT: normal bowel sounds, soft. ABSENT: distended, guarding, mass, organolmegaly, rebound, tenderness Rectal exam: PRESENT: deferred Extremities exam: ABSENT: pedal edema Musculoskeletal exam: PRESENT: ambulatory Neurological exam: PRESENT: alert, awake, oriented to person, oriented to place , oriented to time, oriented to situation, CN II-XII grossly intact. ABSENT: motor sensory deficit Psychiatric exam: PRESENT: appropriate affect, normal mood. ABSENT: homicidal ideation, suicidal ideation Skin exam: PRESENT: dry, intact, warm. ABSENT: cyanosis, rash Results Laboratory Results: 01/23/17 04:48 01/23/17 04:48 01/23/17 01/23/17 04:48 04:48 WBC 9.5 RBC 6.09 H Hgb 13.4 L Hct 40.0 MCV 66 L MCH 22.0 L MCHC 33.4 RDW 15.3 H Plt Count 152 Seg Neutrophils % 64.8 Lymphocytes % 25.9 Monocytes % 6.2 Eosinophils % 2.1 Basophils % 1.0 Absolute Neutrophils 6.1 Absolute Lymphocytes 2.5 Absolute Monocytes 0.6 Absolute Eosinophils 0.2 Absolute Basophils 0.1 Sodium 138.7 Potassium 4.5 Chloride 107 Carbon Dioxide 22 Anion Gap 10 BUN 32 H Creatinine 1.81 H Est GFR ( Amer) 49 L Est GFR (Non-Af Amer) 41 L Glucose 87 Calcium 9.5 01/19/17 22:15 Clean Catch Midstream Urine Culture - Final NO GROWTH 2 DAYS 01/19/17 01/19/17 01/19/17 17:00 17:00 22:50 Creatine Kinase 108 87 CK-MB (CK-2) 0.74 Troponin I 0.029 01/19/17 01/20/17 01/20/17 22:50 05:05 05:05 Creatine Kinase 70 CK-MB (CK-2) 0.66 0.52 Troponin I 0.036 0.039 Impressions: Chest X-Ray 01/19/17 09:48 IMPRESSION: Cardiomegaly. Lung Scan-VQ NM 01/19/17 14:03 IMPRESSION: NORMAL VENTILATION-PERFUSION LUNG SCAN. NEGATIVE FOR PULMONARY EMBOLI. Chest CT 01/19/17 14:04 IMPRESSION: NO SIGNIFICANT FINDING ON NON-CONTRASTED CHEST CT. Head MRI 01/22/17 00:00 IMPRESSION: Scattered small high-signal intensity lesions scattered throughout the white matter on FLAIR imaging, these are nonspecific findings and can be seen with small vessel ischemic conditions including migraine headaches, also demyelinating disorders are in the differential consideration. EVIDENCE OF ACUTE STROKE: NO. Vascular Ultrasound 01/22/17 00:00 IMPRESSION: NO DOPPLER EVIDENCE OF HEMODYNAMICALLY SIGNIFICANT RENAL ARTERY STENOSIS. Assessment & Plan - Diagnosis (1) Chest pain, unspecified Qualifiers: Chest pain type: unspecified Qualified Code(s): R07.9 - Chest pain, unspecified Is this a current diagnosis for this admission?: Yes Plan: Currently all resolved (2) Chronic kidney disease Qualifiers: Chronic kidney disease stage: stage 3 (moderate) Qualified Code(s): N18.3 - Chronic kidney disease, stage 3 (moderate) Is this a current diagnosis for this admission?: Yes Plan: Follow with nephrology currently all stable (3) Hypertension Qualifiers: Hypertension type: essential hypertension Qualified Code(s): I10 - Essential (primary) hypertension Is this a current diagnosis for this admission?: Yes Plan: Continues to current medications increase the lisinopril to 20 mg (4) Congestive heart failure (CHF) Qualifiers: Congestive heart failure type: unspecified congestive heart failure type Congestive heart failure chronicity: chronic Qualified Code(s): I50.9 - Heart failure, unspecified Is this a current diagnosis for this admission?: Yes Plan: Recent echocardiogram on the October [address] Sabillon's with the EF is 50-60% (5) Hyperlipidemia Qualifiers: Hyperlipidemia type: unspecified Qualified Code(s): E78.5 - Hyperlipidemia , unspecified Is this a current diagnosis for this admission?: Yes Plan: Continues to current medications (6) Aortic valve incompetence Qualifiers: Cardiac valve disease etiology: etiology unspecified Qualified Code(s): I35.1 - Nonrheumatic aortic (valve) insufficiency Is this a current diagnosis for this admission?: Yes Plan: We will get another echocardiogram while patient was shortness of the breath - Time Time Spent with patient: 15-24 minutes Medications reviewed and adjusted accordingly: Yes Anticipated discharge: Home Within: within 24 hours - Inpatient Certification Medical Necessity: Need Close Monitoring Due to Risk of Patient Decompensation Post Hospital Care: D/C Helmet Coverer Documentation - Plan Summary Plan Summary: Continues to current medications discussed with the patient about the all the test reports discussed with the patient about the all the low-salt diet and exercise and take aspirin every day
[2017-01-23] MEDS: LISINOPRIL 10 MG TABLET PO SCH ×2 (10:01→21:47)
[2017-01-23] MEDS: AMLODIPINE BESYLATE 5 MG TABLET PO SCH ×2 (10:01→21:47)
[2017-01-23] MEDS: CARVEDILOL 12.5 MG TABLET PO SCH ×2 (10:02→17:59)
[2017-01-24] MEDS: CARVEDILOL 12.5 MG TABLET PO SCH ×2 (05:00→17:02)
[2017-01-24] MEDS: ISOSORB DINIT/HYDRALAZINE HCL 20-37.5 MG TABLET PO SCH ×3 (05:00→22:12)
[2017-01-24] MEDS: LANSOPRAZOLE 30 MG TAB.RAP.DR PO SCH (05:00)
[2017-01-24] MEDS: HEPARIN SOD (PORCINE) 5,000 UNIT/ML 1 ML SYRINGE SUBCUT SCH ×3 (05:00→22:12)
[2017-01-24 05:54] LABS: ANION GAP 13 (5-19); BLOOD UREA NITROGEN 35 mg/dL (7-20); CALCIUM 9.2 mg/dL (8.4-10.2); CARBON DIOXIDE 20 mmol/L (22-30); CHLORIDE 107 mmol/L (98-107); CREATININE RESULT 1.94 mg/dL (0.52-1.25); GLUCOSE 91 mg/dL (75-110); POTASSIUM 4.6 mmol/L (3.6-5.0); SODIUM 139.5 mmol/L (137-145)
[2017-01-24] MEDS: AMLODIPINE BESYLATE 5 MG TABLET PO SCH (09:15)
[2017-01-24] MEDS: LISINOPRIL 10 MG TABLET PO SCH (09:15)
[2017-01-24] MEDS ORDERED: CLONIDINE 0.2 MG/24 HR PATCH.TDWK TD SCH (10:00)
--- NOTE | 2017-01-24 11:39 | PDOC PROGRESS REPORT ---
Subjective Progress Note for:: 01/23/17 Subjective:: Patient claims blood pressure is high. He is denying any other significant symptoms. Physical Exam Vital Signs: Temp Pulse Resp BP Pulse Ox 98.2 F 64 19 159/75 H 100 01/23/17 19:11 01/23/17 19:11 01/23/17 19:11 01/23/17 19:11 01/23/17 19:11 Intake & Output 01/22/17 01/23/17 01/24/17 06:59 06:59 06:59 Intake Total 377 1241 10 Balance 377 1241 10 Weight 81 kg 80.1 kg Exam: GENERAL: well-nourished and in no acute distress. Alert and oriented x3 HEAD: Atraumatic, normocephalic. EYES: Pupils equal round and reactive to light, extraocular movements intact, sclera anicteric, conjunctiva are normal. ENT: TMs normal, nares patent, oropharynx clear without exudates. Moist mucous membranes. No oral ulcerations or bleeding gums noted NECK: supple without lymphadenopathy. Trachea is central. No cervical or axillary lymphadenopathy noted. Carotids are 2+, JVD WNL LUNGS: Respiration seems nonlabored, no significant accessory muscle action noted. Breath sounds clear to auscultation bilaterally and equal noted. No wheezes rales or rhonchi noted. No significant dullness noted on percussion. CHEST: Palpation of the chest wall shows no significant chest wall tenderness. No other significant abnormalities noted. HEART: [place] [employer], No PSH, 1/6 DANIELLE aortic area, 1/6 barnes systolic murmur mitral area, no rubs, no gallops. ABDOMEN: Soft, no significant tenderness appreciated, normoactive bowel sounds. No guarding, no rebound. No rigidity noted . No masses appreciated. EXTREMITIES: Pedal pulses are 1-2+, no calf tenderness noted. No clubbing or cyanosis. Negative pedal edema noted NEUROLOGICAL: Focused neurological exam showed no significant neurologic deficit. Normal speech, no focal weakness appreciated. PSYCH: Normal mood, normal affect. Judgment and insight within normal limits. SKIN: No significant ecchymosis, rash, ulcerations or signs of pruritus noted. MUSCULOSKELETAL EXAM: No significant joint swelling noted. Results Laboratory Results: 01/23/17 04:48 01/23/17 04:48 01/23/17 01/23/17 04:48 04:48 WBC 9.5 RBC 6.09 H Hgb 13.4 L Hct 40.0 MCV 66 L MCH 22.0 L MCHC 33.4 RDW 15.3 H Plt Count 152 Seg Neutrophils % 64.8 Lymphocytes % 25.9 Monocytes % 6.2 Eosinophils % 2.1 Basophils % 1.0 Absolute Neutrophils 6.1 Absolute Lymphocytes 2.5 Absolute Monocytes 0.6 Absolute Eosinophils 0.2 Absolute Basophils 0.1 Sodium 138.7 Potassium 4.5 Chloride 107 Carbon Dioxide 22 Anion Gap 10 BUN 32 H Creatinine 1.81 H Est GFR ( Amer) 49 L Est GFR (Non-Af Amer) 41 L Glucose 87 Calcium 9.5 01/19/17 01/19/17 01/19/17 17:00 17:00 22:50 Creatine Kinase 108 87 CK-MB (CK-2) 0.74 Troponin I 0.029 01/19/17 01/20/17 01/20/17 22:50 05:05 05:05 Creatine Kinase 70 CK-MB (CK-2) 0.66 0.52 Troponin I 0.036 0.039 EKG Comments: Telemetry strips shows sinus rhythm. No sustained tachycardia or bradycardia arrhythmias were noted. Impressions: Chest X-Ray 01/19/17 09:48 IMPRESSION: Cardiomegaly. Lung Scan-VQ NM 01/19/17 14:03 IMPRESSION: NORMAL VENTILATION-PERFUSION LUNG SCAN. NEGATIVE FOR PULMONARY EMBOLI. Chest CT 01/19/17 14:04 IMPRESSION: NO SIGNIFICANT FINDING ON NON-CONTRASTED CHEST CT. Head MRI 01/22/17 00:00 IMPRESSION: Scattered small high-signal intensity lesions scattered throughout the white matter on FLAIR imaging, these are nonspecific findings and can be seen with small vessel ischemic conditions including migraine headaches, also demyelinating disorders are in the differential consideration. EVIDENCE OF ACUTE STROKE: NO. Vascular Ultrasound 01/22/17 00:00 IMPRESSION: NO DOPPLER EVIDENCE OF HEMODYNAMICALLY SIGNIFICANT RENAL ARTERY STENOSIS. Assessment & Plan - Diagnosis (1) Chest pain, unspecified Qualifiers: Chest pain type: unspecified Qualified Code(s): R07.9 - Chest pain, unspecified Is this a current diagnosis for this admission?: Yes (2) Hyperlipidemia Qualifiers: Hyperlipidemia type: unspecified Qualified Code(s): E78.5 - Hyperlipidemia , unspecified Is this a current diagnosis for this admission?: Yes (3) Hypertension Qualifiers: Hypertension type: essential hypertension Qualified Code(s): I10 - Essential (primary) hypertension Is this a current diagnosis for this admission?: Yes (4) Aortic valve incompetence Qualifiers: Cardiac valve disease etiology: etiology unspecified Qualified Code(s): I35.1 - Nonrheumatic aortic (valve) insufficiency Is this a current diagnosis for this admission?: Yes (5) Chronic kidney disease Qualifiers: Chronic kidney disease stage: stage 3 (moderate) Qualified Code(s): N18.3 - Chronic kidney disease, stage 3 (moderate) Is this a current diagnosis for this admission?: Yes (6) Congestive heart failure (CHF) Qualifiers: Congestive heart failure type: unspecified congestive heart failure type Congestive heart failure chronicity: chronic Qualified Code(s): I50.9 - Heart failure, unspecified Is this a current diagnosis for this admission?: Yes (7) Tobacco abuse Is this a current diagnosis for this admission?: Yes - Notes Notes: Chest pain: Resolved cardiac exam has been negative. Previous nuclear stress test results reviewed. At this point continue with good control of blood pressure, aggressive risk factor modification. Dyslipidemia: Continue statin therapy. Hypertension: Blood pressure regimen being adjusted. Appreciate Dr. Liao is input. Aortic valve incompetence: Currently is stable. Chronic kidney disease: Currently stable CHF: Patient is compensated. Tobacco abuse: Patient currently off smoking. Patient has been advised to quit. Tobacco smoking can increase systolic blood pressure by up to 10 mm. - Time Time with patient: 15-25 minutes - More than 50% of the time spent coordinating care, discussing management plans with involved caregivers. Management plans discussed with involved personnels. Medical decision making was of moderate to high complexity, patient's has multiple comorbidities. Medications reviewed and adjusted accordingly: Yes
--- NOTE | 2017-01-24 11:42 | PDOC PROGRESS REPORT ---
Subjective Progress Note for:: 01/24/17 Subjective:: Patient claims blood pressure is high. He is denying any other significant symptoms. Patient's medical regimen reviewed. Discussed with Dr. Mccrary. Will institute setting changes in his medications. Physical Exam Vital Signs: Temp Pulse Resp BP Pulse Ox 98.1 F 62 16 149/70 H 98 01/24/17 07:30 01/24/17 07:30 01/24/17 07:30 01/24/17 07:30 01/24/17 07:30 Intake & Output 01/23/17 01/24/17 01/25/17 06:59 06:59 06:59 Intake Total 1241 740 Balance 1241 740 Weight 80.1 kg 79.2 kg Exam: GENERAL: well-nourished and in no acute distress. Alert and oriented x3 HEAD: Atraumatic, normocephalic. EYES: Pupils equal round and reactive to light, extraocular movements intact, sclera anicteric, conjunctiva are normal. ENT: TMs normal, nares patent, oropharynx clear without exudates. Moist mucous membranes. No oral ulcerations or bleeding gums noted NECK: supple without lymphadenopathy. Trachea is central. No cervical or axillary lymphadenopathy noted. Carotids are 2+, JVD WNL LUNGS: Respiration seems nonlabored, no significant accessory muscle action noted. Breath sounds clear to auscultation bilaterally and equal noted. No wheezes rales or rhonchi noted. No significant dullness noted on percussion. CHEST: Palpation of the chest wall shows no significant chest wall tenderness. No other significant abnormalities noted. HEART: [place] [employer], No PSH, 1/6 DANIELLE aortic area, 1/6 barnes systolic murmur mitral area, no rubs, no gallops. ABDOMEN: Soft, no significant tenderness appreciated, normoactive bowel sounds. No guarding, no rebound. No rigidity noted . No masses appreciated. EXTREMITIES: Pedal pulses are 1-2+, no calf tenderness noted. No clubbing or cyanosis. Negative pedal edema noted NEUROLOGICAL: Focused neurological exam showed no significant neurologic deficit. Normal speech, no focal weakness appreciated. PSYCH: Normal mood, normal affect. Judgment and insight within normal limits. SKIN: No significant ecchymosis, rash, ulcerations or signs of pruritus noted. MUSCULOSKELETAL EXAM: No significant joint swelling noted. Results Laboratory Results: 01/23/17 04:48 01/24/17 04:46 01/24/17 04:46 Sodium 139.5 Potassium 4.6 Chloride 107 Carbon Dioxide 20 L Anion Gap 13 BUN 35 H Creatinine 1.94 H Est GFR ( Amer) 45 L Est GFR (Non-Af Amer) 37 L Glucose 91 Calcium 9.2 01/19/17 01/19/17 01/19/17 17:00 17:00 22:50 Creatine Kinase 108 87 CK-MB (CK-2) 0.74 Troponin I 0.029 01/19/17 01/20/17 01/20/17 22:50 05:05 05:05 Creatine Kinase 70 CK-MB (CK-2) 0.66 0.52 Troponin I 0.036 0.039 EKG Comments: Sinus rhythm with mild sinus bradycardia intermittently Impressions: Chest X-Ray 01/19/17 09:48 IMPRESSION: Cardiomegaly. Lung Scan-VQ NM 01/19/17 14:03 IMPRESSION: NORMAL VENTILATION-PERFUSION LUNG SCAN. NEGATIVE FOR PULMONARY EMBOLI. Chest CT 01/19/17 14:04 IMPRESSION: NO SIGNIFICANT FINDING ON NON-CONTRASTED CHEST CT. Head MRI 01/22/17 00:00 IMPRESSION: Scattered small high-signal intensity lesions scattered throughout the white matter on FLAIR imaging, these are nonspecific findings and can be seen with small vessel ischemic conditions including migraine headaches, also demyelinating disorders are in the differential consideration. EVIDENCE OF ACUTE STROKE: NO. Vascular Ultrasound 01/22/17 00:00 IMPRESSION: NO DOPPLER EVIDENCE OF HEMODYNAMICALLY SIGNIFICANT RENAL ARTERY STENOSIS. Assessment & Plan - Diagnosis (1) Chest pain, unspecified Qualifiers: Chest pain type: unspecified Qualified Code(s): R07.9 - Chest pain, unspecified Is this a current diagnosis for this admission?: Yes (2) Hyperlipidemia Qualifiers: Hyperlipidemia type: unspecified Qualified Code(s): E78.5 - Hyperlipidemia , unspecified Is this a current diagnosis for this admission?: Yes (3) Hypertension Qualifiers: Hypertension type: essential hypertension Qualified Code(s): I10 - Essential (primary) hypertension Is this a current diagnosis for this admission?: Yes (4) Aortic valve incompetence Qualifiers: Cardiac valve disease etiology: etiology unspecified Qualified Code(s): I35.1 - Nonrheumatic aortic (valve) insufficiency Is this a current diagnosis for this admission?: Yes (5) Chronic kidney disease Qualifiers: Chronic kidney disease stage: stage 3 (moderate) Qualified Code(s): N18.3 - Chronic kidney disease, stage 3 (moderate) Is this a current diagnosis for this admission?: Yes (6) Congestive heart failure (CHF) Qualifiers: Congestive heart failure type: unspecified congestive heart failure type Congestive heart failure chronicity: chronic Qualified Code(s): I50.9 - Heart failure, unspecified Is this a current diagnosis for this admission?: Yes (7) Tobacco abuse Is this a current diagnosis for this admission?: Yes - Notes Notes: Chest pain: Resolved cardiac exam has been negative. Previous nuclear stress test results reviewed. At this point continue with good control of blood pressure, aggressive risk factor modification. Dyslipidemia: Continue statin therapy. However medication review shows that he is currently not on statin. Statins may help with blood pressure control by improving vascular reactivity. Hypertension: Blood pressure regimen being adjusted. Placed patient on Diovan 160 p.o. twice daily. Stopped lisinopril. Discussed with Dr. Mccrary. Aortic valve incompetence: Currently is stable. Chronic kidney disease: Currently stable CHF: Patient is compensated. Tobacco abuse: Patient currently off smoking. Patient has been advised to quit. - Time Time with patient: 15-25 minutes - More than 50% of the time spent coordinating care, discussing management plans with involved caregivers. Management plans discussed with involved personnels. Medical decision making was of moderate to high complexity, patient's has multiple comorbidities. Medications reviewed and adjusted accordingly: Yes
--- NOTE | 2017-01-24 11:44 | PDOC PROGRESS REPORT ---
Subjective Progress Note for:: 01/24/17 Subjective:: Patient is currently doing much better. Patient's denied any chest pain denied any headache denied any shortness of the breath Patient's blood pressures running fluctuating 140-180 range Physical Exam Vital Signs: Temp Pulse Resp BP Pulse Ox 98.1 F 62 16 149/70 H 98 01/24/17 07:30 01/24/17 07:30 01/24/17 07:30 01/24/17 07:30 01/24/17 07:30 Intake & Output 01/23/17 01/24/17 01/25/17 06:59 06:59 06:59 Intake Total 1241 740 Balance 1241 740 Weight 80.1 kg 79.2 kg General appearance: PRESENT: no acute distress, well-developed, well-nourished Head exam: PRESENT: atraumatic, normocephalic Eye exam: PRESENT: conjunctiva pink, EOMI, PERRLA. ABSENT: scleral icterus Ear exam: PRESENT: normal external ear exam Mouth exam: PRESENT: moist, tongue midline Neck exam: PRESENT: full ROM. ABSENT: carotid bruit, JVD, lymphadenopathy, thyromegaly Respiratory exam: PRESENT: clear to auscultation oly Cardiovascular exam: PRESENT: RRR. ABSENT: diastolic murmur, rubs, systolic murmur Pulses: PRESENT: normal dorsalis pedis pul, +2 pedal pulses bilateral Vascular exam: PRESENT: normal capillary refill GI/Abdominal exam: PRESENT: normal bowel sounds, soft. ABSENT: distended, guarding, mass, organolmegaly, rebound, tenderness Rectal exam: PRESENT: deferred Extremities exam: ABSENT: pedal edema Musculoskeletal exam: PRESENT: ambulatory Neurological exam: PRESENT: alert, awake, oriented to person, oriented to place , oriented to time, oriented to situation, CN II-XII grossly intact. ABSENT: motor sensory deficit Psychiatric exam: PRESENT: appropriate affect, normal mood. ABSENT: homicidal ideation, suicidal ideation Skin exam: PRESENT: dry, intact, warm. ABSENT: cyanosis, rash Results Laboratory Results: 01/23/17 04:48 01/24/17 04:46 01/24/17 04:46 Sodium 139.5 Potassium 4.6 Chloride 107 Carbon Dioxide 20 L Anion Gap 13 BUN 35 H Creatinine 1.94 H Est GFR ( Amer) 45 L Est GFR (Non-Af Amer) 37 L Glucose 91 Calcium 9.2 01/19/17 01/19/17 01/19/17 17:00 17:00 22:50 Creatine Kinase 108 87 CK-MB (CK-2) 0.74 Troponin I 0.029 01/19/17 01/20/17 01/20/17 22:50 05:05 05:05 Creatine Kinase 70 CK-MB (CK-2) 0.66 0.52 Troponin I 0.036 0.039 Impressions: Chest X-Ray 01/19/17 09:48 IMPRESSION: Cardiomegaly. Lung Scan-VQ NM 01/19/17 14:03 IMPRESSION: NORMAL VENTILATION-PERFUSION LUNG SCAN. NEGATIVE FOR PULMONARY EMBOLI. Chest CT 01/19/17 14:04 IMPRESSION: NO SIGNIFICANT FINDING ON NON-CONTRASTED CHEST CT. Head MRI 01/22/17 00:00 IMPRESSION: Scattered small high-signal intensity lesions scattered throughout the white matter on FLAIR imaging, these are nonspecific findings and can be seen with small vessel ischemic conditions including migraine headaches, also demyelinating disorders are in the differential consideration. EVIDENCE OF ACUTE STROKE: NO. Vascular Ultrasound 01/22/17 00:00 IMPRESSION: NO DOPPLER EVIDENCE OF HEMODYNAMICALLY SIGNIFICANT RENAL ARTERY STENOSIS. Assessment & Plan - Diagnosis (1) Chest pain, unspecified Qualifiers: Qualified Code(s): R07.9 - Chest pain, unspecified Is this a current diagnosis for this admission?: Yes Plan: Currently all resolved (2) Chronic kidney disease Qualifiers: Qualified Code(s): N18.3 - Chronic kidney disease, stage 3 (moderate) Is this a current diagnosis for this admission?: Yes Plan: Follow with nephrology currently all stable (3) Hypertension Qualifiers: Qualified Code(s): I10 - Essential (primary) hypertension Is this a current diagnosis for this admission?: Yes Plan: Continues to current medications increase the lisinopril to 20 mg (4) Congestive heart failure (CHF) Qualifiers: Qualified Code(s): I50.9 - Heart failure, unspecified Is this a current diagnosis for this admission?: Yes Plan: Recent echocardiogram on the October [address] Sabillon's with the EF is 50-60% (5) Hyperlipidemia Qualifiers: Qualified Code(s): E78.5 - Hyperlipidemia, unspecified Is this a current diagnosis for this admission?: Yes Plan: Continues to current medications (6) Aortic valve incompetence Qualifiers: Qualified Code(s): I35.1 - Nonrheumatic aortic (valve) insufficiency Is this a current diagnosis for this admission?: Yes Plan: We will get another echocardiogram while patient was shortness of the breath - Time Time Spent with patient: 15-24 minutes Medications reviewed and adjusted accordingly: Yes Anticipated discharge: Home Within: within 24 hours - Inpatient Certification Medical Necessity: Need Close Monitoring Due to Risk of Patient Decompensation Post Hospital Care: D/C Applications Scientist Documentation - Plan Summary Plan Summary: Continues to monitor for next 24 hours and if the blood pressures remain stable we will discharge the patient home tomorrow
--- NOTE | 2017-01-24 14:18 | PDOC PROGRESS REPORT ---
Subjective Progress Note for:: 01/24/17 Subjective:: He was seen this morning. He is enjoying his breakfast with no ongoing issues. He denies any history of chest pain shortness of breath headaches focal deficits.He says the medicine that he was most comfortable with was Catapres patch which she ran out sometime ago.He says other medications used to give him adverse effects including weakness and therefore he was sometimes leery about taking them.He came in with hypertensive urgency and currently his blood pressures are in the 150 and 160 systolic range. Physical Exam Vital Signs: Temp Pulse Resp BP Pulse Ox 98.1 F 62 16 149/70 H 98 01/24/17 07:30 01/24/17 07:30 01/24/17 07:30 01/24/17 07:30 01/24/17 07:30 Intake & Output 01/23/17 01/24/17 01/25/17 06:59 06:59 06:59 Intake Total 1241 740 Balance 1241 740 Weight 80.1 kg 79.2 kg General appearance: PRESENT: no acute distress Respiratory exam: PRESENT: clear to auscultation oly, symmetrical. ABSENT: crackles Cardiovascular exam: PRESENT: RRR, +S1, +S2 GI/Abdominal exam: PRESENT: normal bowel sounds, soft. ABSENT: diminished bowel sounds, distended, guarding, hyperactive bowel sounds, hypoactive bowel sounds, tenderness Extremities exam: ABSENT: pedal edema Neurological exam: PRESENT: alert, awake, oriented to person, oriented to place Results Laboratory Results: 01/23/17 04:48 01/24/17 04:46 01/24/17 04:46 Sodium 139.5 Potassium 4.6 Chloride 107 Carbon Dioxide 20 L Anion Gap 13 BUN 35 H Creatinine 1.94 H Est GFR ( Amer) 45 L Est GFR (Non-Af Amer) 37 L Glucose 91 Calcium 9.2 01/19/17 01/19/17 01/19/17 17:00 17:00 22:50 Creatine Kinase 108 87 CK-MB (CK-2) 0.74 Troponin I 0.029 01/19/17 01/20/17 01/20/17 22:50 05:05 05:05 Creatine Kinase 70 CK-MB (CK-2) 0.66 0.52 Troponin I 0.036 0.039 Impressions: Chest X-Ray 01/19/17 09:48 IMPRESSION: Cardiomegaly. Lung Scan-VQ NM 01/19/17 14:03 IMPRESSION: NORMAL VENTILATION-PERFUSION LUNG SCAN. NEGATIVE FOR PULMONARY EMBOLI. Chest CT 01/19/17 14:04 IMPRESSION: NO SIGNIFICANT FINDING ON NON-CONTRASTED CHEST CT. Head MRI 01/22/17 00:00 IMPRESSION: Scattered small high-signal intensity lesions scattered throughout the white matter on FLAIR imaging, these are nonspecific findings and can be seen with small vessel ischemic conditions including migraine headaches, also demyelinating disorders are in the differential consideration. EVIDENCE OF ACUTE STROKE: NO. Vascular Ultrasound 01/22/17 00:00 IMPRESSION: NO DOPPLER EVIDENCE OF HEMODYNAMICALLY SIGNIFICANT RENAL ARTERY STENOSIS. Assessment & Plan - Diagnosis (1) Hypertension Qualifiers: Hypertension type: essential hypertension Qualified Code(s): I10 - Essential (primary) hypertension Is this a current diagnosis for this admission?: Yes Plan: He is relatively controlled given the fact that he was quite high when he came in. I would like to revert him back to his old medication especially Catapres patch which has been reintroduced by Dr. Mccrary.I would increase this to 0.2 mg per week. Given the multitude of medications it would be nice to narrow down his medications to maybe 3 antihypertensives which will therefore increase compliance as well.Suggest cutting down the amlodipine to 5 mg daily. I would look at his blood pressures and if it is remaining relatively the same tomorrow and his renal functions of the same I would recommend discharging him home and follow-up as an outpatient in a couple of weeks time. 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 (3) Chronic kidney disease Qualifiers: Chronic kidney disease stage: stage 3 (moderate) Qualified Code(s): N18.3 - Chronic kidney disease, stage 3 (moderate) Is this a current diagnosis for this admission?: Yes Plan: Stable. Needs outpatient monitoring. Discussed with the patient implications of tight blood pressure control. (4) Congestive heart failure (CHF) Qualifiers: Congestive heart failure type: unspecified congestive heart failure type Congestive heart failure chronicity: chronic Qualified Code(s): I50.9 - Heart failure, unspecified Is this a current diagnosis for this admission?: Yes Plan: Currently stable.
[2017-01-24] MEDS ORDERED: VALSARTAN 160 MG TABLET PO SCH (22:00)
[2017-01-25] MEDS: CARVEDILOL 12.5 MG TABLET PO SCH (06:03)
[2017-01-25] MEDS: ISOSORB DINIT/HYDRALAZINE HCL 20-37.5 MG TABLET PO SCH (06:03)
[2017-01-25] MEDS: HEPARIN SOD (PORCINE) 5,000 UNIT/ML 1 ML SYRINGE SUBCUT SCH (06:03)
[2017-01-25] MEDS: LANSOPRAZOLE 30 MG TAB.RAP.DR PO SCH (06:04)
[2017-01-25 06:11] LABS: ANION GAP 10 (5-19); BLOOD UREA NITROGEN 38 mg/dL (7-20); CALCIUM 8.8 mg/dL (8.4-10.2); CARBON DIOXIDE 21 mmol/L (22-30); CHLORIDE 108 mmol/L (98-107); CREATININE RESULT 1.95 mg/dL (0.52-1.25); GLUCOSE 90 mg/dL (75-110); POTASSIUM 4.7 mmol/L (3.6-5.0)
[2017-01-25 08:50] VITALS: BP 152/80
[2017-01-25] MEDS ORDERED: VALSARTAN 160 MG TABLET PO SCH (10:00)
--- NOTE | 2017-01-25 10:50 | PDOC PROGRESS REPORT ---
Subjective Progress Note for:: 01/25/17 Subjective:: Patient claims blood pressure is now well controlled. Patient blood pressure recordings are reviewed. In fact there are noted to be very satisfactory for this patient. However this would need to be on consistent basis.. He is denying any other significant symptoms. Patient's medical regimen reviewed. Discussed with Dr. Mccrary. Telemetry strips reviewed showed sinus rhythm. No sustained tachycardia or bradycardia arrhythmias were noted. Physical Exam Vital Signs: Temp Pulse Resp BP Pulse Ox 98.0 F 64 18 152/80 H 100 01/25/17 08:48 01/25/17 08:48 01/25/17 08:48 01/25/17 08:48 01/25/17 08:48 Intake & Output 01/24/17 01/25/17 01/26/17 06:59 06:59 06:59 Intake Total 740 1454 Balance 740 1454 Weight 79.2 kg 79.5 kg Exam: GENERAL: well-nourished and in no acute distress. Alert and oriented x3 HEAD: Atraumatic, normocephalic. EYES: Pupils equal round and reactive to light, extraocular movements intact, sclera anicteric, conjunctiva are normal. ENT: TMs normal, nares patent, oropharynx clear without exudates. Moist mucous membranes. No oral ulcerations or bleeding gums noted NECK: supple without lymphadenopathy. Trachea is central. No cervical or axillary lymphadenopathy noted. Carotids are 2+, JVD WNL LUNGS: Respiration seems nonlabored, no significant accessory muscle action noted. Breath sounds clear to auscultation bilaterally and equal noted. No wheezes rales or rhonchi noted. No significant dullness noted on percussion. CHEST: Palpation of the chest wall shows no significant chest wall tenderness. No other significant abnormalities noted. HEART: [place] [employer], No PSH, 1/6 DANIELLE aortic area, 1/6 barnes systolic murmur mitral area, no rubs, no gallops. ABDOMEN: Soft, no significant tenderness appreciated, normoactive bowel sounds. No guarding, no rebound. No rigidity noted . No masses appreciated. EXTREMITIES: Pedal pulses are 1-2+, no calf tenderness noted. No clubbing or cyanosis.trace pedal edema noted NEUROLOGICAL: Focused neurological exam showed no significant neurologic deficit. Normal speech, no focal weakness appreciated. PSYCH: Normal mood, normal affect. Judgment and insight within normal limits. SKIN: No significant ecchymosis, rash, ulcerations or signs of pruritus noted. MUSCULOSKELETAL EXAM: No significant joint swelling noted. Results Laboratory Results: 01/23/17 04:48 01/25/17 04:50 01/25/17 04:50 Sodium 139.0 Potassium 4.7 Chloride 108 H Carbon Dioxide 21 L Anion Gap 10 BUN 38 H Creatinine 1.95 H Est GFR ( Amer) 45 L Est GFR (Non-Af Amer) 37 L Glucose 90 Calcium 8.8 01/19/17 17:00 Blood Blood Culture - Final NO GROWTH IN 5 DAYS 01/19/17 14:16 Blood Blood Culture - Final NO GROWTH IN 5 DAYS 01/19/17 01/19/17 01/19/17 17:00 17:00 22:50 Creatine Kinase 108 87 CK-MB (CK-2) 0.74 Troponin I 0.029 01/19/17 01/20/17 01/20/17 22:50 05:05 05:05 Creatine Kinase 70 CK-MB (CK-2) 0.66 0.52 Troponin I 0.036 0.039 EKG Comments: Telemetry strips reviewed. Shows sinus rhythm no sustained tachycardia or bradycardia arrhythmias noted. Impressions: Chest X-Ray 01/19/17 09:48 IMPRESSION: Cardiomegaly. Lung Scan-VQ NM 01/19/17 14:03 IMPRESSION: NORMAL VENTILATION-PERFUSION LUNG SCAN. NEGATIVE FOR PULMONARY EMBOLI. Chest CT 01/19/17 14:04 IMPRESSION: NO SIGNIFICANT FINDING ON NON-CONTRASTED CHEST CT. Head MRI 01/22/17 00:00 IMPRESSION: Scattered small high-signal intensity lesions scattered throughout the white matter on FLAIR imaging, these are nonspecific findings and can be seen with small vessel ischemic conditions including migraine headaches, also demyelinating disorders are in the differential consideration. EVIDENCE OF ACUTE STROKE: NO. Vascular Ultrasound 01/22/17 00:00 IMPRESSION: NO DOPPLER EVIDENCE OF HEMODYNAMICALLY SIGNIFICANT RENAL ARTERY STENOSIS. Assessment & Plan - Diagnosis (1) Chest pain, unspecified Qualifiers: Chest pain type: unspecified Qualified Code(s): R07.9 - Chest pain, unspecified Is this a current diagnosis for this admission?: Yes (2) Hyperlipidemia Qualifiers: Hyperlipidemia type: unspecified Qualified Code(s): E78.5 - Hyperlipidemia , unspecified Is this a current diagnosis for this admission?: Yes (3) Hypertension Qualifiers: Hypertension type: essential hypertension Qualified Code(s): I10 - Essential (primary) hypertension Is this a current diagnosis for this admission?: Yes (4) Aortic valve incompetence Qualifiers: Cardiac valve disease etiology: etiology unspecified Qualified Code(s): I35.1 - Nonrheumatic aortic (valve) insufficiency Is this a current diagnosis for this admission?: Yes (5) Chronic kidney disease Qualifiers: Chronic kidney disease stage: stage 3 (moderate) Qualified Code(s): N18.3 - Chronic kidney disease, stage 3 (moderate) Is this a current diagnosis for this admission?: Yes (6) Congestive heart failure (CHF) Qualifiers: Congestive heart failure type: unspecified congestive heart failure type Congestive heart failure chronicity: chronic Qualified Code(s): I50.9 - Heart failure, unspecified Is this a current diagnosis for this admission?: Yes (7) Tobacco abuse Is this a current diagnosis for this admission?: Yes - Notes Notes: Chest pain: Resolved cardiac enzymes has been negative. Previous nuclear stress test results reviewed. At this point continue with good control of blood pressure, aggressive risk factor modification. Medical regimen noted to be satisfactory. Dyslipidemia: Continue statin therapy. Hypertension: Blood pressure regimen being adjusted. Appreciate Dr. Liao is input. Currently seems to be on a stable regimen. Aortic valve incompetence: Currently is stable. Patient may need periodic echocardiogram. Chronic kidney disease: Currently stable CHF: Patient is compensated. Tobacco abuse: Patient currently off smoking. Patient has been advised to quit. In view of severe hypertension and needing multiple medication, patient may have high probability of underlying sleep apnea syndrome. Patient was encouraged to follow-up regarding that. Will review previous workup. Patient to follow-up with me in the office. - Time Time with patient: 15-25 minutes - More than 50% of the time spent coordinating care, discussing management plans with involved caregivers. Management plans discussed with involved personnels. Medical decision making was of moderate to high complexity, patient's has multiple comorbidities. Medications reviewed and adjusted accordingly: Yes
--- NOTE | 2017-01-25 13:14 | PDOC DISCHARGE SUMMARY ---
General - Admit/Disc Date/PCP Admission Date/Primary Care Provider: 01/19/17 14:00 KAYLEEN CAMPBELL MD Discharge Date: 01/25/17 - Discharge Diagnosis (1) Chest pain, unspecified Is this a current diagnosis for this admission?: Yes Summary: All resolved (2) Chronic kidney disease Is this a current diagnosis for this admission?: Yes Summary: Currently stable last creatinine is 1.94 follow-up outpatients Dr. Liao (3) Hypertension Is this a current diagnosis for this admission?: Yes Summary: Currently all improving (4) Congestive heart failure (CHF) Is this a current diagnosis for this admission?: Yes Summary: Patient's echocardiogram with normal EF (5) Hyperlipidemia Is this a current diagnosis for this admission?: Yes Summary: Currently all stable (6) Aortic valve incompetence Is this a current diagnosis for this admission?: Yes Summary: Recent echo is all stable - Additional Information Resuscitation Status: Full Code Discharge Diet: Cardiac Discharge Activity: Activity As Tolerated Home Medications: Amlodipine Besylate [Norvasc 5 mg Tablet] 5 mg PO QHS #30 tablet 01/25/17 Aspirin 81 mg PO DAILY #30 tab.chew 01/25/17 Carvedilol [Coreg 12.5 mg Tablet] 25 mg PO Q12A #60 tablet 01/25/17 Clonidine [Catapres-Tts 2 (0.2 mg/24 Hr) [facility] 1 each TD We@1000 #12 patch.tdwk 01/25/17 Isosorb Dinit/Hydralazine HCl [Bidil 20-37.5 mg Tablet] 1 tab PO Q8 #90 tablet 01/25/17 Valsartan [Diovan 160 mg Tablet] 160 mg PO DAILY #30 tablet 01/25/17 History of Present Illness History of Present Illness: GEETHA ADRIAN is a 46 year old male This is a 46-year-old male with This morning 3:00 and was complaining of chest pain on the left sides and patients came to the emergency department this morning but patients to have initial cardiac enzyme and EKG and a d-dimer and was all normal. Patient was giving nitroglycerin and patient's chest pain is pretty much relieved Patients came to my office yesterday with the blood pressure was 220/108 and the patient's is a noncompliance of the medications and patient was given 1 dose of clonidine 0.1 mg and patients afterwards took medications from his home including the hydralazine and the Coreg and the doxazosin and patient's feeling diaphoretic and the patient's not feeling well and dizzyAnd And called EMS and patient's was sent to the emergency departmentThat patient have all the CT of the head and EKG and all blood work was done and all normalAnd patient was feeling much better and the ER physician discharged the patient yesterday Patient also have recently is seeing Dr Sabillon and patient have a stress test and echocardiogram was done in October 2016 and was all stable Patient also see her Dr. Liao but the chronic kidney disease Patient also using the marijuana Patient is not taking his clonidine patch since last couple of months and according to the patient when he was on a clonidine patch and was working very well. 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 no need for further interventions Patient also see by the nephrology endovascular ultrasound was done was all negative Patient have several blood pressure medication was changed because patient was noncompliance with the previous medications and have a some soft several side effect and because of the noncompliance of the medications very hard to adjust the medicationsIn the hospital patient'Blood pressures running 140-150 range and patient's otherwise denied any chest pain denied any headache Patients walk around without any problems Patient's tolerated all medications very well Patient had MRI of the head was done with some microvascular changes most likely uncontrolled blood pressures and patient was put on aspirin 81 mg he is otherwise remained stable and all extensive workup is negative including the VQ scan CT chest MRI and CT head Patient's follow-up outpatients Dr. Liao in 1 week Physical Exam Vital Signs: Temp Pulse Resp BP Pulse Ox 98.0 F 64 18 152/80 H 100 01/25/17 08:48 01/25/17 08:48 01/25/17 08:48 01/25/17 08:48 01/25/17 08:48 Intake & Output 01/24/17 01/25/17 01/26/17 06:59 06:59 06:59 Intake Total 740 1454 Balance 740 1454 Weight 79.2 kg 79.5 kg General appearance: PRESENT: no acute distress, well-developed, well-nourished Head exam: PRESENT: atraumatic, normocephalic Eye exam: PRESENT: conjunctiva pink, EOMI, PERRLA. ABSENT: scleral icterus Ear exam: PRESENT: normal external ear exam Mouth exam: PRESENT: moist, tongue midline Neck exam: PRESENT: full ROM. ABSENT: carotid bruit, JVD, lymphadenopathy, thyromegaly Respiratory exam: PRESENT: clear to auscultation oly Cardiovascular exam: PRESENT: RRR. ABSENT: diastolic murmur, rubs, systolic murmur Pulses: PRESENT: normal dorsalis pedis pul, +2 pedal pulses bilateral Vascular exam: PRESENT: normal capillary refill GI/Abdominal exam: PRESENT: normal bowel sounds, soft. ABSENT: distended, guarding, mass, organolmegaly, rebound, tenderness Rectal exam: PRESENT: deferred Extremities exam: ABSENT: pedal edema Musculoskeletal exam: PRESENT: ambulatory Neurological exam: PRESENT: alert, awake, oriented to person, oriented to place , oriented to time, oriented to situation, CN II-XII grossly intact. ABSENT: motor sensory deficit Psychiatric exam: PRESENT: appropriate affect, normal mood. ABSENT: homicidal ideation, suicidal ideation Skin exam: PRESENT: dry, intact, warm. ABSENT: cyanosis, rash Results Laboratory Results: 01/23/17 04:48 01/25/17 04:50 01/25/17 04:50 Sodium 139.0 Potassium 4.7 Chloride 108 H Carbon Dioxide 21 L Anion Gap 10 BUN 38 H Creatinine 1.95 H Est GFR ( Amer) 45 L Est GFR (Non-Af Amer) 37 L Glucose 90 Calcium 8.8 01/19/17 17:00 Blood Blood Culture - Final NO GROWTH IN 5 DAYS 01/19/17 14:16 Blood Blood Culture - Final NO GROWTH IN 5 DAYS 01/19/17 01/19/17 01/19/17 17:00 17:00 22:50 Creatine Kinase 108 87 CK-MB (CK-2) 0.74 Troponin I 0.029 01/19/17 01/20/17 01/20/17 22:50 05:05 05:05 Creatine Kinase 70 CK-MB (CK-2) 0.66 0.52 Troponin I 0.036 0.039 Impressions: Chest X-Ray 01/19/17 09:48 IMPRESSION: Cardiomegaly. Lung Scan-VQ NM 01/19/17 14:03 IMPRESSION: NORMAL VENTILATION-PERFUSION LUNG SCAN. NEGATIVE FOR PULMONARY EMBOLI. Chest CT 01/19/17 14:04 IMPRESSION: NO SIGNIFICANT FINDING ON NON-CONTRASTED CHEST CT. Head MRI 01/22/17 00:00 IMPRESSION: Scattered small high-signal intensity lesions scattered throughout the white matter on FLAIR imaging, these are nonspecific findings and can be seen with small vessel ischemic conditions including migraine headaches, also demyelinating disorders are in the differential consideration. EVIDENCE OF ACUTE STROKE: NO. Vascular Ultrasound 01/22/17 00:00 IMPRESSION: NO DOPPLER EVIDENCE OF HEMODYNAMICALLY SIGNIFICANT RENAL ARTERY STENOSIS. Plan Time Spent: Greater than 30 Minutes - Patient's discharge home keep a blood pressure is 140-150 range and follow in the office 1 week and recheck the Chem- 7 Follow with the cardiology and nephrology This with the patient with all that is reports in the compliance of the medications and compliance of the diet
[2017-01-25] MEDS ORDERED: AMLODIPINE BESYLATE 5 MG TABLET PO SCH (22:00)
[2017-01-26] MEDS ORDERED: CLONIDINE 0.1 MG/24 HR PATCH.TDWK TD SCH (10:00)
== END 2017-01-25 09:54 | disposition home or self-care (01) | DRG 292 ==
LOC: ER 08:19 → EH 14:00 → 3W 16:41
PROVIDERS: ADMIT Family Medicine; ATTEND Family Medicine
PROC: 3E0F73Z Introduction of Anti-inflammatory into Respiratory Tract, Via Natural or Artificial Opening (ICD-10-PCS; principal; 2017-01-20)
PROC: 3E0234Z Introduction of Serum, Toxoid and Vaccine into Muscle, Percutaneous Approach (ICD-10-PCS; 2017-01-25)
DX: I13.0 Hypertensive heart and chronic kidney disease with heart failure and stage 1 through stage 4 chronic kidney disease, or unspecified chronic kidney disease (principal); I50.32 Chronic diastolic (congestive) heart failure; E78.5 Hyperlipidemia, unspecified; I35.1 Nonrheumatic aortic (valve) insufficiency; N18.3 Chronic kidney disease, stage 3 (moderate); J44.9 Chronic obstructive pulmonary disease, unspecified; K21.9 Gastro-esophageal reflux disease without esophagitis; F17.210 Nicotine dependence, cigarettes, uncomplicated; I08.3 Combined rheumatic disorders of mitral, aortic and tricuspid valves; Z23 Encounter for immunization; Z79.899 Other long term (current) drug therapy; Z82.49 Family history of ischemic heart disease and other diseases of the circulatory system
CPT/HCPCS: 36415; 70551; 71010; 71250; 78582; 80048; 80053; 80307; 82550; 82553; 83605; 83735; 83880; 84484; 85025; 85379; 85610; 87040; 87086; 90686; 93005; 93010; 93306; 93976; 99285; A9540; A9567; J1644; J3490; Q9969; S0164

== ENCOUNTER 2017-07-22 04:07 | Emergency (ER) | payer MEDICAID ==
[2017-07-22] MEDS ORDERED: NITROGLYCERIN 2% OINTMENT 1 GM PACKET TP ONE (04:39)
[2017-07-22] MEDS ORDERED: MORPHINE SULFATE 10 MG/ML INJ IV ONE (04:39)
--- NOTE | 2017-07-22 04:41 | ER Document Report ---
Doctor's Note Notes: 07/22/17 04:39 I did a quick triage evaluation of the patient. Patient is 47-year-old male presents with complaint of chest pain and back pain. Says pain is mostly in the epigastric lower chest area. He says he does have some back pain but he also mentions that he has chronic back pain as well as unsure if this is related to his typical back pain or if it something different. He does have history of [place] was approximately 70 years ago. He does not remember if he had a stent placed or not. He does take blood pressure medications. He did not take his nighttime medications. Currently is hypertensive. He is not tachycardic. On exam he does is easily reproducible pain to palpation of the lower sternal area. I will place nitro paste on. I will give a small dose of morphine. I have ordered cardiac enzymes. Patient does have a lot of ST segment depression in lateral and lateral precordial leads however this is unchanged comparison to his previous EKG from January. Dictation of this chart was performed using voice recognition software; therefore, there may be some unintended grammatical errors. 07/22/17 05:10 Patient tells me that his medications have not changed since he was here in January. I did look up his discharge summary from January and he takes amlodipine 5 mg at night as well as carvedilol 25 mg twice a day. He has not had his nighttime dosages of these medications therefore I have ordered them to help better control his blood pressure.
--- NOTE | 2017-07-22 04:59 | RADIOLOGY REPORT (SQ) ---
EXAM DESCRIPTION: CHEST SINGLE VIEW CLINICAL HISTORY: 47 years Male, chest pain COMPARISON: None. NUMBER OF VIEWS/TECHNIQUE: 1/AP FINDINGS: Adequate lung volume, clear parenchyma, normal cardiac silhouette, and intact bony thorax. IMPRESSION: No acute cardiopulmonary findings.
[2017-07-22 05:05] LABS: ABSOLUTE BASOPHILS # (AUTO) 0.1 10^3/uL (0.0-0.2); ABSOLUTE EOSINOPHILS # (AUTO) 0.3 10^3/uL (0.0-0.6); ABSOLUTE LYMPHOCYTES (AUTO) 1.2 10^3/uL (0.5-4.7); ABSOLUTE MONOCYTES (AUTO) 0.6 10^3/uL (0.1-1.4); ABSOLUTE NEUT (AUTO) 7.3 10^3/uL (1.7-8.2); BASOPHILS % (AUTO) 0.8 % (0-2); HEMATOCRIT 45.7 % (37.9-51.0); HEMOGLOBIN 14.8 g/dL (13.5-17.0); LYMPHOCYTES % (AUTO) 12.5 % (13-45); MEAN CORPUSCULAR HEMOGLOBIN 21.6 pg (27.0-33.4); MEAN CORPUSCULAR HGB CONC 32.4 g/dL (32.0-36.0); MEAN CORPUSCULAR VOLUME 67 fl (80-97); MONOCYTES % (AUTO) 5.9 % (3-13); PLATELET COUNT 198 10^3/uL (150-450); RED BLOOD COUNT 6.85 10^6/uL (4.35-5.55); SEGMENTED NEUTROPHILS % (AUTO) 77.8 % (42-78); TOTAL CELLS COUNTED % (AUTO) 100 %; WHITE BLOOD COUNT 9.3 10^3/uL (4.0-10.5)
[2017-07-22] MEDS ORDERED: AMLODIPINE BESYLATE 5 MG TABLET PO ONE (05:09)
[2017-07-22] MEDS ORDERED: CARVEDILOL 12.5 MG TABLET PO ONE (05:10)
[2017-07-22 05:33] LABS: ALANINE AMINOTRANSFERASE 20 U/L (21-72); ALBUMIN 3.7 g/dL (3.5-5.0); ALKALINE PHOSPHATASE 76 U/L (38-126); ANION GAP 12 (5-19); ASPARTATE AMINO TRANSFERASE 17 U/L (17-59); BILIRUBIN,DIRECT 0.1 mg/dL (0.0-0.4); BILIRUBIN,TOTAL 0.4 mg/dL (0.2-1.3); BLOOD UREA NITROGEN 23 mg/dL (7-20); CALCIUM 9.5 mg/dL (8.4-10.2); CARBON DIOXIDE 26 mmol/L (22-30); CHLORIDE 107 mmol/L (98-107); CREATINE KINASE 125 U/L (55-170); GLUCOSE 192 mg/dL (75-110); POTASSIUM 4.3 mmol/L (3.6-5.0); TOTAL PROTEIN 6.4 g/dL (6.3-8.2)
[2017-07-22 05:48] LABS: CREATINE KINASE MB 0.67 ng/mL (<4.55); TROPONIN I 0.016 ng/mL
[2017-07-22] MEDS ORDERED: MAG HYDROX/AL HYDROX/SIMETH SUSP 30 ML UDCUP PO ONE (06:41)
[2017-07-22] MEDS ORDERED: LIDOCAINE 2% VISCOUS SOLN 20 ML UDCUP PO ONE (06:41)
[2017-07-22] MEDS ORDERED: METOCLOPRAMIDE HCL ORAL SOLN 10 MG/10 ML UDCUP PO ONE (06:41)
[2017-07-22] MEDS ORDERED: CLONIDINE HCL 0.2 MG TABLET PO ONE (07:29)
[2017-07-22] MEDS ORDERED: VALSARTAN 160 MG TABLET PO ONE (07:30)
[2017-07-22] MEDS ORDERED: ISOSORB DINIT/HYDRALAZINE HCL 20-37.5 MG TABLET PO ONE (07:30)
--- NOTE | 2017-07-22 07:42 | ER Document Report ---
ED General - General Chief Complaint: Chest Pain Stated Complaint: CHEST AND BACK PAIN Time Seen by Provider: 07/22/17 04:38 TRAVEL OUTSIDE OF THE [place] IN LAST 30 DAYS: No - HPI Patient complains to provider of: Chest pain Notes: Patient coming in for evaluation of chest pain. States ongoing for the last 2 3 days. Patient states chest pain epigastric pain does have some back pain however patient does state he has chronic back pain he is to receive injections not received any injections in his back for "quite some time". Patient states pain is exacerbated with movement and taking deep breaths. No recent travel. Patient denies taking medication for his pain. Patient is hypertensive was given some of his antihypertensives prior to my arrival. Patient given carvedilol and amlodipine. Further research into the patient's recent discharge shows he is also on clonidine valsartan Sorbide and hydralazine. Patient upon my evaluation sleeping resting very comfortably chest pain-free. - Related Data Allergies/Adverse Reactions: No Known Allergies Allergy (Verified 07/22/17 06:36) Past Medical History - Social History Smoking Status: Current Every Day Smoker Chew tobacco use (# tins/day): No Frequency of alcohol use: None Drug Abuse: Marijuana Family History: Hypertension Patient has suicidal ideation: No Patient has homicidal ideation: No - Past Medical History Cardiac Medical History: Reports: Hx Congestive Heart Failure - possible, Hx Heart Attack, Hx Hypercholesterolemia, Hx Hypertension Pulmonary Medical History: Reports: Hx COPD Renal/ Medical History: Denies: Hx Peritoneal Dialysis GI Medical History: Reports: Hx Gastroesophageal Reflux Disease Past Surgical History: Reports: Hx Cardiac Catheterization - Immunizations Hx Diphtheria, Pertussis, Tetanus Vaccination: No Review of Systems - Review of Systems Constitutional: No symptoms reported EENT: No symptoms reported Cardiovascular: Chest pain Respiratory: No symptoms reported Gastrointestinal: No symptoms reported Genitourinary: No symptoms reported Male Genitourinary: No symptoms reported Musculoskeletal: No symptoms reported Skin: No symptoms reported Hematologic/Lymphatic: No symptoms reported Neurological/Psychological: No symptoms reported -: Yes All other systems reviewed and negative Physical Exam - Vital signs Vitals: Resp BP Pulse Ox 19 209/103 H 98 07/22/17 04:37 07/22/17 04:37 07/22/17 04:37 Interpretation: Normal - General General appearance: Appears well, Alert - HEENT Head: Normocephalic, Atraumatic Eyes: Normal Pupils: PERRL - Respiratory Respiratory status: No respiratory distress Chest status: Nontender Breath sounds: Normal Chest palpation: Normal - Cardiovascular Rhythm: Regular Heart sounds: Normal auscultation Murmur: No - Abdominal Inspection: Normal Distension: No distension Bowel sounds: Normal Tenderness: Other - Reproducible pain in the epigastric region mild palpation also reproducible lower chest wall pain at the epigastric region reproducible mild Organomegaly: No organomegaly - Back Back: Normal, Nontender - Extremities General upper extremity: Normal inspection, Nontender, Normal color, Normal ROM , Normal temperature General lower extremity: Normal inspection, Nontender, Normal color, Normal ROM , Normal temperature, Normal weight bearing. No: Crispin's sign - Neurological Neuro grossly intact: Yes Cognition: Normal Orientation: AAOx4 Ariel Coma Scale Eye Opening: Spontaneous Ariel Coma Scale Verbal: Oriented Ariel Coma Scale Motor: Obeys Commands Ariel Coma Scale Total: 15 Speech: Normal Motor strength normal: LUE, RUE, LLE, RLE Sensory: Normal - Psychological Associated symptoms: Normal affect, Normal mood - Skin Skin Temperature: Warm Skin Moisture: Dry Skin Color: Normal Course - Re-evaluation Re-evalutation: 07/22/17 14:42 Laboratory studies not show any signs of acute ischemia. Patient upon reevaluation is sleeping easily arousable. Patient's pain is reproducible more likely muscle skeletal nature. Patient will be discharged on follow-up primary care physician. The patient has atypical chest pain as the patient's chest pain is not suggestive of pulmonary embolus, cardiac ischemia, aortic dissection , or other serious etiology. Given the extremely low risk of these diagnoses further testing and evaluation for these possibilities does not appear to be indicated at this time. The patient has been instructed to return if the symptoms worsen or change in any way. - Vital Signs Vital signs: Temp Pulse Resp BP Pulse Ox 98.2 F 73 17 183/93 H 98 07/22/17 11:48 07/22/17 11:57 07/22/17 11:57 07/22/17 11:57 07/22/17 11:57 - Laboratory Result Diagrams: 07/22/17 04:41 07/22/17 04:41 Laboratory results interpreted by me: 07/22/17 07/22/17 04:41 04:41 RBC 6.85 H MCV 67 L MCH 21.6 L RDW 16.0 H Lymphocytes % 12.5 L BUN 23 H Creatinine 1.83 H Est GFR ( Amer) 48 L Est GFR (Non-Af Amer) 40 L Glucose 192 H ALT 20 L Discharge - Discharge Clinical Impression: Epigastric pain, lower chest wall pain Hypertension Qualifiers: Hypertension type: unspecified Qualified Code(s): I10 - Essential (primary) hypertension Condition: Good Disposition: HOME, SELF-CARE Instructions: Abdominal Pain ([facility]), Chest Wall Pain ([facility]), Chest Pain of Unclear Cause ([facility]), Oral Narcotic Medication ([facility]) Additional Instructions: Your EKG does not show any acute changes. Laboratory studies not showing signs cardiac ischemia or any other significant pathology. Do believe your pain is more muscle skeletal that I can reproduce it with your movement and to palpation. Please take medication as prescribed would recommend taking Tylenol as well for pain relief. Return to the ER symptoms worsen follow-up with your primary care physician. Prescriptions: Tramadol HCl [Ultram 50 mg Tablet] 50 mg PO ASDIR PRN #20 tablet PRN Reason: Referrals: KAYLEEN CAMPBELL MD [Primary Care Provider] - Follow up as needed
[2017-07-22 11:50] VITALS: BP 183/93
--- NOTE | 2017-07-22 16:02 | EKG REPORT ---
SEVERITY:- ABNORMAL ECG - SINUS RHYTHM LEFT VENTRICULAR HYPERTROPHY INFERIOR INFARCT, OLD ABNORMAL T, CONSIDER ISCHEMIA, ANT-LAT LEADS : Confirmed by: Niko Oneill MD 22-Jul-2017 16:01:38
--- NOTE | 2017-07-23 06:15 | EKG REPORT ---
SEVERITY:- ABNORMAL ECG - SINUS RHYTHM PROBABLE LEFT ATRIAL ABNORMALITY INFERIOR INFARCT, AGE INDETERMINATE ABNORMAL T, CONSIDER ISCHEMIA, ANT-LAT LEADS : Confirmed by: Niko Oneill MD 23-Jul-2017 06:15:00
== END 2017-07-22 11:59 | disposition home or self-care (01) ==
LOC: ER 04:07
DX: R07.89 Other chest pain (principal); R10.13 Epigastric pain; I10 Essential (primary) hypertension; I25.2 Old myocardial infarction; J44.9 Chronic obstructive pulmonary disease, unspecified; M54.9 Dorsalgia, unspecified; G89.29 Other chronic pain; F17.200 Nicotine dependence, unspecified, uncomplicated; F12.10 Cannabis abuse, uncomplicated; Z79.899 Other long term (current) drug therapy
CPT/HCPCS: 93005; 99285; 96374; 36415; 82553; 82550; 83690; 85025; 80053; 84484; 71045; 93010; J3490 ×5; J2270

== ENCOUNTER → 2017-10-30 | Outpatient (CLI) | payer MEDICAID ==
--- NOTE | 2017-10-30 12:17 | RADIOLOGY REPORT (SQ) ---
EXAM DESCRIPTION: U/S RETROPERITON (RENAL/AORTA) COMPLETED DATE/TIME: 10/30/2017 11:44 am REASON FOR STUDY: CHRONIC KIDNEY DISEASE STAGE 3 N18.3 CHRONIC KIDNEY DISEASE, STAGE 3 (MODERATE) COMPARISON: None. TECHNIQUE: Dynamic and static grayscale images acquired of the kidneys and bladder and recorded on P ACS. Additional selected color Doppler and spectral images recorded. LIMITATIONS: None. FINDINGS: RIGHT KIDNEY: 10.2 cm Increased cortical echogenicity. No solid or suspicious masses. No hydronephrosis. No calcifications. LEFT KIDNEY: 8.8 cm. Increased cortical echogenicity. Dromedary hump. No solid or suspicious ma sses. No hydronephrosis. No calcifications. BLADDER: No masses. OTHER: No other significant finding. IMPRESSION: CHRONIC MEDICAL RENAL DISEASE. NO HYDRONEPHROSIS. TECHNICAL DOCUMENTATION: JOB ID: [id number] [employer]- All Rights Reserved Reading location - IP/workstation name: [email or web address]
== END ==
LOC: RAD 10:46
PROVIDERS: ATTEND Internal Medicine Nephrology
DX: N18.3 Chronic kidney disease, stage 3 (moderate) (principal)
CPT/HCPCS: 76770

== ENCOUNTER 2018-06-20 16:35 | Emergency (ER) | payer MEDICAID ==
[2018-06-20] MEDS ORDERED: OXYCODONE HCL IR 5 MG TABLET PO ONE (17:45)
[2018-06-20] MEDS ORDERED: LIDOCAINE 1% INJ-PF (10 MG/ML) 30 ML SDV INJ ONE (17:49)
--- NOTE | 2018-06-20 17:53 | ER Document Report ---
HPI - HPI Time Seen by Provider: 06/20/18 17:45 Pain Level: 4 Notes: Patient is a 48-year-old male with no significant past medical history aside from hypertension who presents to the emergency department complaining of a laceration/injury to his left fifth digit of the hand. Patient states that he cut his hand with a circular saw. Patient states that he is still able to move his finger through range of motion otherwise. Denies drug allergies. No other concerns or complaints. Pain does not radiate. No history of IV drug abuse or MRSA. Denies any headache, fever, neck pain, URI, sore throat, chest pain, palpitations, syncope, cough, shortness of breath, wheeze, dyspnea, abdominal pain, nausea/vomiting/diarrhea, urinary retention, dysuria, hematuria, loss of control of bowel or bladder, numbness/tingling, saddle anesthesia, muscle paralysis/weakness, or rash. Last tetanus <5 years ago per patient. - ROS Systems Reviewed and Negative: Yes All other systems reviewed and negative Past Medical History - Social History Smoking Status: Never Smoker Family History: Hypertension - Past Medical History Cardiac Medical History: Reports: Hx Congestive Heart Failure - possible, Hx Heart Attack, Hx Hypercholesterolemia, Hx Hypertension Pulmonary Medical History: Reports: Hx COPD Renal/ Medical History: Denies: Hx Peritoneal Dialysis GI Medical History: Reports: Hx Gastroesophageal Reflux Disease Past Surgical History: Reports: Hx Cardiac Catheterization - Immunizations Hx Diphtheria, Pertussis, Tetanus Vaccination: No Vertical Provider Document - CONSTITUTIONAL Agree With Documented VS: Yes Notes: PHYSICAL EXAMINATION: GENERAL: Well-appearing, well-nourished and in no acute distress. LUNGS: Breath sounds clear to auscultation bilaterally and equal. No wheezes rales or rhonchi. HEART: Regular rate and rhythm without murmurs, rubs, gallops. Musculoskeletal: Left hand: + 1.5cm laceration noted to the dorsal distal 5th finger not involving the nail. FROM to passive/active. Strength 5+/5. N/V intact distal. + tenderness associated. Extremities: No cyanosis, clubbing, or edema b/l. Peripheral pulses 2+. Capillary refill less than 3 seconds. NEUROLOGICAL: Normal speech, normal gait. Normal sensory, motor exams PSYCH: Normal mood, normal affect. SKIN: see above. - INFECTION CONTROL TRAVEL OUTSIDE OF THE [place] IN LAST 30 DAYS: No Course - Re-evaluation Re-evalutation: 06/20/18 Patient is an afebrile, well-hydrated, 48-year-old male who presents to the emergency department with a finger injury/laceration to the left fifth digit. Vitals are acceptable without significant tachycardia, tachypnea, or hypoxia. PE is otherwise unremarkable for any neurovascular compromise, obvious tendon/leg rupture, obvious fracture/dislocation, septic joint. X-ray was unremarkable for any acute pathology. He is nontoxic-appearing and is tolerating p.o. without difficulty. Wound was thoroughly irrigated and cleansed. Wound edges were approximated appropriately utilizing 4 simple interrupted sutures. Wound dressing was placed and wound instructions reviewed. No further labs or imaging warranted at this time. I will be sending him home with a prescription for Augmentin. Recheck with your PCM in 2-3 days. Sutures will need removed in 10 days. Return to the ED with any other worsening/concerning symptoms. patient is in agreement. - Vital Signs Vital signs: Temp Pulse Resp BP Pulse Ox 98.2 F 66 16 213/92 H 96 06/20/18 16:41 06/20/18 16:41 06/20/18 16:41 06/20/18 16:41 06/20/18 16:41 Procedures - Laceration/Wound Repair Left Finger 5th digit Time completed: 18:55 - performed by CHEVY Jenkins under supervision Wound length (cm): 1.5 Wound's Depth, Shape: Superficial, Linear Laceration pre-procedure: Sterile PPE donned, Sterile drapes applied, Other - chlorhexadine/saline Anesthetic type: 1% Lidocaine Volume Anesthetic (mLs): 4 Wound explored: Clean, No foreign body removed Irrigated w/ Saline (mLs): 100 Wound Debrided: none Wound Repaired With: Sutures Suture Size/Type: 4:0, Nylon Number of Sutures: 4 Layer Closure?: No Post-procedure wound care: Sterile dressing applied Post-procedure NV exam normal: Yes Complications: No Discharge - Discharge Clinical Impression: Laceration of left little finger Qualifiers: Encounter type: initial encounter Damage to nail status: without damage Foreign body presence: without foreign body Qualified Code(s): S61.217A - Laceration without foreign body of left little finger without damage to nail, initial encounter Condition: Stable Disposition: HOME, SELF-CARE Instructions: Antibiotic Ointment Protection ([facility]), Laceration Care ([facility]), Prophylactic Antibiotic ([facility]), Soap Cleansing ([facility]) Additional Instructions: Do not shower or bathe for 24 hours. After 24 hours you may shower but no submersion of the wound under water. Keep the original dressing on the wound for 24 hours unless the drainage soaks through. Change the dressing daily thereafter and keep the knots of the suture material clean from any dried discharge. You may leave the wound open to the air once there is no more discharge. Return to the ED and/or your PCM in 2-3 days for a recheck. Monitor for any signs of worsening pain or redness, purulent drainage, streaks, and/or fever. Return to the ED if noticing any of the above symptoms or as needed. Take medications as directed. Your sutures will need to be removed in 10 days. Prescriptions: Amox Tr/Potassium Clavulanate [Augmentin 875-125 Tablet] 1 tab PO BID 7 Days #14 tablet Forms: Elevated Blood Pressure Referrals: [facility] [Provider Group] - Follow up as needed
--- NOTE | 2018-06-20 18:12 | RADIOLOGY REPORT (SQ) ---
EXAM DESCRIPTION: HAND LEFT 3 VIEWS COMPLETED DATE/TIME: 06/20/2018 5:59 pm REASON FOR STUDY: left lateral hand laceration/injury COMPARISON: None. EXAM PARAMETERS: NUMBER OF VIEWS: Three views. TECHNIQUE: AP, lateral and oblique radiographic images acquired of the left hand. LIMITATIONS: None. FINDINGS: MINERALIZATION: Normal. BONES: No acute fracture or dislocation. No worrisome bone lesions. JOINTS: No effusions. SOFT TISSUES: No soft tissue swelling. No foreign body. OTHER: No other significant finding. IMPRESSION: NEGATIVE STUDY OF THE LEFT HAND. NO RADIOGRAPHIC EVIDENCE OF ACUTE INJURY. TECHNICAL DOCUMENTATION: JOB ID: [id number] [employer]- All Rights Reserved Reading location - IP/workstation name: [email or web address]
[2018-06-20 19:32] VITALS: BP 246/99
== END 2018-06-20 19:32 | disposition home or self-care (01) ==
LOC: ER 16:35
DX: S61.217A Laceration without foreign body of left little finger without damage to nail, initial encounter (principal); W29.8XXA Contact with other powered hand tools and household machinery, initial encounter; I50.9 Heart failure, unspecified; E78.00 Pure hypercholesterolemia, unspecified; I11.0 Hypertensive heart disease with heart failure; J44.9 Chronic obstructive pulmonary disease, unspecified; I25.2 Old myocardial infarction
CPT/HCPCS: 99283; 73130; 12001; J3490

== ENCOUNTER 2018-07-01 17:46 | Emergency (ER) | payer MEDICAID ==
[2018-07-01 17:56] VITALS: BP 156/77
--- NOTE | 2018-07-01 17:56 | ER Document Report ---
ED Medical Screen (RME) - General Chief Complaint: Breathing Difficulty Stated Complaint: FEVER Time Seen by Provider: 07/01/18 17:52 Primary Care Provider: KAYLEEN CAMPBELL MD [Primary Care Provider] - Follow up as needed Mode of Arrival: Wheelchair Information source: Patient Notes: PT PRESENTS FROM DR BENTON OFFICE FOR POSSIBLE DEHYDRATION, COUGH, VOMITING UP BLOOD (NOTED STREAKS IN EMESIS) FLU LIKE SYMPTOMS SINCE YESTERDAY. REPORTS FLU TEST NEG AT DR BENTON. Reports hx of CKD, Stage 3. I have greeted and performed a rapid initial assessment of this patient. A comprehensive ED assessment and evaluation of the patient, analysis of test results and completion of the medical decision making process will be conducted by additional ED providers. TRAVEL OUTSIDE OF THE [place] IN LAST 30 DAYS: No - Related Data Allergies/Adverse Reactions: No Known Allergies Allergy (Verified 06/20/18 16:37) Past Medical History - Past Medical History Cardiac Medical History: Reports: Hx Congestive Heart Failure - possible, Hx Heart Attack, Hx Hypercholesterolemia, Hx Hypertension Pulmonary Medical History: Reports: Hx COPD Renal/ Medical History: Denies: Hx Peritoneal Dialysis GI Medical History: Reports: Hx Gastroesophageal Reflux Disease Past Surgical History: Reports: Hx Cardiac Catheterization - Immunizations Hx Diphtheria, Pertussis, Tetanus Vaccination: No History of Influenza Vaccine for 01/2017 - 06/2017 Season: No Physical Exam - Vital signs Vitals: Temp Pulse Resp BP Pulse Ox 98.9 F 94 22 H 156/77 H 95 07/01/18 17:55 07/01/18 17:55 07/01/18 17:55 07/01/18 17:55 07/01/18 17:55 Course - Vital Signs Vital signs: Temp Pulse Resp BP Pulse Ox 98.9 F 94 22 H 156/77 H 95 07/01/18 17:55 07/01/18 17:55 07/01/18 17:55 07/01/18 17:55 07/01/18 17:55 Doctor's Discharge - Discharge Referrals: KAYLEEN CAMPBELL MD [Primary Care Provider] - Follow up as needed
--- NOTE | 2018-07-01 18:18 | RADIOLOGY REPORT (SQ) ---
EXAM DESCRIPTION: CHEST 2 VIEWS COMPLETED DATE/TIME: 07/01/2018 6:04 pm REASON FOR STUDY: COUGH, BLOOD STREAKED COMPARISON: 03/24/2015 EXAM PARAMETERS: NUMBER OF VIEWS: two views TECHNIQUE: Digital Frontal and Lateral radiographic views of the chest acquired. RADIATION DOSE: NA LIMITATIONS: none FINDINGS: LUNGS AND PLEURA: No opacities, masses or pneumothorax. No pleural effusion. MEDIASTINUM AND HILAR STRUCTURES: No masses or contour abnormalities. HEART AND VASCULAR STRUCTURES: Heart normal size. No evidence for failure. BONES: No acute findings. HARDWARE: None in the chest. OTHER: No other significant finding. IMPRESSION: NO ACUTE RADIOGRAPHIC FINDING IN THE CHEST. TECHNICAL DOCUMENTATION: JOB ID: [id number] [employer]- All Rights Reserved Reading location - IP/workstation name: [email or web address]
[2018-07-01 22:25] LABS: ABSOLUTE EOSINOPHILS # (AUTO) 0.2 10^3/uL (0.0-0.6); ABSOLUTE LYMPHOCYTES (AUTO) 0.7 10^3/uL (0.5-4.7); ABSOLUTE MONOCYTES (AUTO) 0.8 10^3/uL (0.1-1.4); ABSOLUTE NEUT (AUTO) 10.6 10^3/uL (1.7-8.2); BASOPHILS % (AUTO) 0.4 % (0-2); EOSINOPHILS % (AUTO) 1.9 % (0-6); HEMOGLOBIN 14.4 g/dL (13.5-17.0); LYMPHOCYTES % (AUTO) 5.9 % (13-45); MEAN CORPUSCULAR HGB CONC 32.7 g/dL (32.0-36.0); MEAN CORPUSCULAR VOLUME 67 fl (80-97); MONOCYTES % (AUTO) 6.2 % (3-13); PLATELET COUNT 162 10^3/uL (150-450); RED BLOOD COUNT 6.54 10^6/uL (4.35-5.55); RED CELL DISTRIBUTION WIDTH 16.1 % (11.5-14.0); SEGMENTED NEUTROPHILS % (AUTO) 85.6 % (42-78); TOTAL CELLS COUNTED % (AUTO) 100 %; WHITE BLOOD COUNT 12.4 10^3/uL (4.0-10.5)
[2018-07-01 22:37] LABS: ALANINE AMINOTRANSFERASE 16 U/L (21-72); ALBUMIN 3.6 g/dL (3.5-5.0); ALKALINE PHOSPHATASE 69 U/L (38-126); ANION GAP 11 (5-19); ASPARTATE AMINO TRANSFERASE 17 U/L (17-59); BILIRUBIN,DIRECT 0.1 mg/dL (0.0-0.4); BILIRUBIN,TOTAL 0.9 mg/dL (0.2-1.3); BLOOD UREA NITROGEN 25 mg/dL (7-20); CARBON DIOXIDE 21 mmol/L (22-30); CHLORIDE 103 mmol/L (98-107); GLUCOSE 105 mg/dL (75-110); POTASSIUM 4.3 mmol/L (3.6-5.0); SODIUM 134.5 mmol/L (137-145); TOTAL PROTEIN 6.8 g/dL (6.3-8.2)
[2018-07-01 23:01] LABS: A TYPE INFLUENZA AG NEGATIVE (NEGATIVE); B INFLUENZA AG NEGATIVE (NEGATIVE)
[2018-07-01] MEDS ORDERED: NORMAL SALINE 1000 ML 1,000 ML IV ONE (23:56)
[2018-07-02] MEDS ORDERED: ALBUTEROL SULFATE HFA (90 MCG/PUFF) 200 PUFF/8.5 GM MDI IH ONE (00:03)
[2018-07-02] MEDS ORDERED: DEXAMETHASONE 4 MG TABLET PO ONE (00:04)
[2018-07-02] MEDS ORDERED: BENZONATATE 100 MG CAPSULE PO ONE (00:04)
[2018-07-02] MEDS ORDERED: ACETAMINOPHEN 325 MG TABLET PO ONE (00:04)
--- NOTE | 2018-07-02 00:10 | ER Document Report ---
ED General - General Chief Complaint: Breathing Difficulty Stated Complaint: FEVER Time Seen by Provider: 07/01/18 17:52 Primary Care Provider: KAYLEEN CAMPBELL MD [Primary Care Provider] - Follow up in 3-5 days Mode of Arrival: Wheelchair Notes: Patient is a 48-year-old male with past medical history of essential hypertension, chronic kidney disease, referred to the emergency department by h is primary care doctor due to concerns of cough, wheezing and shortness of breath. Patient reports that for the past 36 hours he has had subjective fevers, cough without sputum production, been achy and feels generally unwell. He was seen in Dr. Campbell's office today, referred to the emergency department after being started on Tamiflu for presumptive diagnosis of influenza. The patient reports that he has diffuse, throbbing, myalgias. Nothing seems to improve or worsen his symptoms. He denies any known history of asthma or COPD but does smoke. No history of similar symptoms. Patient also notes that he has had associated nausea and vomiting but no diarrhea. Has been able to tolerate fluids in between episodes of vomiting. TRAVEL OUTSIDE OF THE [place] IN LAST 30 DAYS: No - HPI Onset: Yesterday Onset/Duration: Gradual Quality of pain: Achy Severity: Moderate Pain Level: 2 Associated symptoms: Fever, Shortness of breath Exacerbated by: Coughing Relieved by: Denies Similar symptoms previously: No Recently seen / treated by doctor: Yes - Related Data Allergies/Adverse Reactions: No Known Allergies Allergy (Verified 06/20/18 16:37) Past Medical History - General Information source: Patient - Social History Smoking Status: Current Every Day Smoker Frequency of alcohol use: None Drug Abuse: None Lives with: Family Family History: Reviewed & Not Pertinent, Hypertension - Past Medical History Cardiac Medical History: Reports: Hx Congestive Heart Failure - possible, Hx Heart Attack, Hx Hypercholesterolemia, Hx Hypertension Pulmonary Medical History: Reports: Hx COPD Renal/ Medical History: Denies: Hx Peritoneal Dialysis GI Medical History: Reports: Hx Gastroesophageal Reflux Disease Past Surgical History: Reports: Hx Cardiac Catheterization - Immunizations Hx Diphtheria, Pertussis, Tetanus Vaccination: No Review of Systems - Review of Systems Notes: Constitutional: Positive for subjective fever HENT: Negative for sore throat. Eyes: Negative for visual changes. Cardiovascular: Negative for chest pain. Respiratory: Positive cough and shortness of breath Gastrointestinal: Negative for abdominal pain, positive for nausea Genitourinary: Negative for dysuria. Musculoskeletal: Negative for back pain. Skin: Negative for rash. Neurological: Negative for headaches, weakness or numbness. 10 point ROS negative except as marked above and in HPI. Physical Exam - Vital signs Vitals: Temp Pulse Resp BP Pulse Ox 98.9 F 94 22 H 156/77 H 95 07/01/18 17:55 07/01/18 17:55 07/01/18 17:55 07/01/18 17:55 07/01/18 17:55 Interpretation: Hypertensive Notes: PHYSICAL EXAMINATION: GENERAL: Appears moderately uncomfortable but in no acute distress HEAD: Atraumatic, normocephalic. EYES: Pupils equal round and reactive to light, extraocular movements intact, sclera anicteric, conjunctiva are normal. ENT: nares patent, oropharynx clear without exudates. Moderately dry mucous membranes. NECK: Normal range of motion, supple without lymphadenopathy LUNGS: Breath sounds clear to auscultation bilaterally and equal. Faint expiratory wheezing in all lung haines. HEART: Regular rate and rhythm without murmurs ABDOMEN: Soft, nontender, normoactive bowel sounds. No guarding, no rebound. No masses appreciated. EXTREMITIES: Normal range of motion, no pitting or edema. No cyanosis. NEUROLOGICAL: No focal neurological deficits. Moves all extremities spontaneously and on command. PSYCH: Normal mood, normal affect. SKIN: Warm, Dry, normal turgor, no rashes or lesions noted. Course - Re-evaluation Re-evalutation: 07/02/18 00:05 Patient presents with cough, vomiting, diarrhea, and fever at home consistent with a flulike illness although our flu test here is negative. Clinical history and exam is not consistent with an acute bacterial meningitis, encephalitis, pneumonia, there is no evidence of a cellulitis on examination. Patient likewise denies any urinary symptoms. Chest x-ray is clear without any evidence of an acute pneumonia. Patient does not have any focal abdominal tenderness to suggest an acute biliary pathology, acute appendicitis, acute mesenteric isc hemia, bowel obstruction, bowel, or any other life-threatening acute intra- abdominal pathology as the etiology of the fever and additional symptoms today. Labs are otherwise unremarkable with the except of CKD, mildly above baseline. I have encourage PO intake. Patient is tolerated oral intake without difficulty. Vitals at time of reassessment are within normal limits. At this time will discharge with return precautions and follow-up recommendations. Verbal discharge instructions given a the bedside and opportunity for questions given. Medication warnings reviewed. Patient is in agreement with this plan and has verbalized understanding of return precautions and the need for primary care follow-up in the next 24-72 hours. - Vital Signs Vital signs: Temp Pulse Resp BP Pulse Ox 98.9 F 94 22 H 156/77 H 95 07/01/18 17:55 07/01/18 17:55 07/01/18 17:55 07/01/18 17:55 07/01/18 17:55 - Laboratory Result Diagrams: 07/01/18 22:00 07/01/18 22:00 Laboratory results interpreted by me: 07/01/18 07/01/18 22:00 22:00 WBC 12.4 H RBC 6.54 H MCV 67 L MCH 22.0 L RDW 16.1 H Seg Neutrophils % 85.6 H Lymphocytes % 5.9 L Absolute Neutrophils 10.6 H Sodium 134.5 L Carbon Dioxide 21 L BUN 25 H Creatinine 2.20 H Est GFR ( Amer) 39 L Est GFR (Non-Af Amer) 32 L ALT 16 L - Diagnostic Test Radiology reviewed: Image reviewed, Reports reviewed Radiology results interpreted by me: 07/02/18 00:08 Chest x-ray: No acute infiltrate or pneumothorax Discharge - Discharge Clinical Impression: CKD (chronic kidney disease) stage 3, GFR 30-59 ml/min, Cough, Wheezing, Shortness of breath, Bronchitis Condition: Good Disposition: HOME, SELF-CARE Additional Instructions: You were seen for symptoms most consistent with bronchitis. This can take up to 12 weeks to fully resolve. This is generally due to a viral infection. Please follow-up with your primary doctor in the next 2-3 days. Return if you develop worsening cough, vomiting, fever >100.4, pass out, begin coughing blood, or have any other symptoms that are concerning to you. Please use the medications prescribed today as directed. Please also have your kidney functions rechecked by your primary care doctor to ensure that there coming back towards your baseline. Please continue to push oral fluids at home. Prescriptions: Benzonatate [Tessalon Perles 100 mg Capsule] 100 mg PO Q8HP PRN #40 capsule PRN Reason: Referrals: KAYLEEN CAMPBELL MD [Primary Care Provider] - Follow up in 3-5 days
== END 2018-07-02 01:33 | disposition home or self-care (01) ==
LOC: ER 17:46
DX: J40 Bronchitis, not specified as acute or chronic (principal); R50.9 Fever, unspecified; F17.200 Nicotine dependence, unspecified, uncomplicated; R06.2 Wheezing; R06.02 Shortness of breath; I13.0 Hypertensive heart and chronic kidney disease with heart failure and stage 1 through stage 4 chronic kidney disease, or unspecified chronic kidney disease; N18.3 Chronic kidney disease, stage 3 (moderate); I50.9 Heart failure, unspecified
CPT/HCPCS: 99285; 36415; 85025; 80053; 87804; 71046; J3490 ×4

== ENCOUNTER → 2018-10-15 | Outpatient (CLI) | payer MEDICAID ==
[2018-10-15 11:34] LABS: MEAN CORPUSCULAR HEMOGLOBIN 21.6 pg (27.0-33.4); MEAN CORPUSCULAR HGB CONC 31.8 g/dL (32.0-36.0); MEAN CORPUSCULAR VOLUME 68 fl (80-97); PLATELET COUNT 179 10^3/uL (150-450); RED BLOOD COUNT 6.49 10^6/uL (4.35-5.55); WHITE BLOOD COUNT 8.5 10^3/uL (4.0-10.5)
[2018-10-15 12:01] LABS: ANION GAP 6 (5-19); BLOOD UREA NITROGEN 30 mg/dL (7-20); CALCIUM 9.3 mg/dL (8.4-10.2); CARBON DIOXIDE 23 mmol/L (22-30); CHLORIDE 109 mmol/L (98-107); GLUCOSE 98 mg/dL (75-110); SODIUM 138.2 mmol/L (137-145)
[2018-10-15 12:06] LABS: APPEARANCE,URINE CLEAR; COLOR,URINE STRAW
[2018-10-15 12:07] LABS: BILIRUBIN,URINE NEGATIVE (NEGATIVE); GLUCOSE, URINE NEGATIVE (NEGATIVE); KETONES,URINE NEGATIVE (NEGATIVE); LEUKOCYTE ESTERASE,URINE NEGATIVE (NEGATIVE); NITRITE,URINE NEGATIVE (NEGATIVE); PROTEIN,URINE >=500 mg/dL (NEGATIVE); URINE SPECIFIC GRAVITY 1.013; UROBILINOGEN,URINE NEGATIVE mg/dL (<2.0)
== END ==
LOC: OD 10:40
PROVIDERS: ATTEND Internal Medicine Nephrology
DX: I12.9 Hypertensive chronic kidney disease with stage 1 through stage 4 chronic kidney disease, or unspecified chronic kidney disease (principal); N18.3 Chronic kidney disease, stage 3 (moderate)
CPT/HCPCS: 36415; 80048; 81001; 85027

== ENCOUNTER → 2019-03-25 | Outpatient (CLI) | payer MEDICAID ==
[2019-03-25 14:25] LABS: ANION GAP 10 (5-19); BLOOD UREA NITROGEN 31 mg/dL (7-20); CARBON DIOXIDE 22 mmol/L (22-30); CHLORIDE 108 mmol/L (98-107); GLUCOSE 86 mg/dL (75-110); POTASSIUM 4.7 mmol/L (3.6-5.0)
== END ==
LOC: OD 13:24
PROVIDERS: ATTEND Family Medicine
DX: E87.5 Hyperkalemia (principal)
CPT/HCPCS: 36415; 80048

== ENCOUNTER 2019-05-04 18:54 | Emergency (ER) | payer MEDICAID ==
[2019-05-04] MEDS ORDERED: ADENOSINE INJ/PF 6 MG/2 ML SDV IV ONE ×3 (19:05→19:13)
[2019-05-04] MEDS ORDERED: DILTIAZEM HCL INJ 25 MG/5 ML VIAL ONE (19:15)
[2019-05-04] MEDS ORDERED: DILTIAZEM HCL INJ 25 MG/5 ML VIAL IV ONE (19:17)
[2019-05-04] MEDS ORDERED: NORMAL SALINE 1000 ML 1,000 ML IV ONE (19:19)
[2019-05-04] MEDS ORDERED: ONDANSETRON HCL INJ/PF 4 MG/2 ML SDV IV ONE (19:19)
[2019-05-04 19:30] LABS: ABSOLUTE BASOPHILS # (AUTO) 0.1 10^3/uL (0.0-0.2); ABSOLUTE EOSINOPHILS # (AUTO) 0.3 10^3/uL (0.0-0.6); ABSOLUTE LYMPHOCYTES (AUTO) 2.3 10^3/uL (0.5-4.7); ABSOLUTE MONOCYTES (AUTO) 0.6 10^3/uL (0.1-1.4); ABSOLUTE NEUT (AUTO) 5.3 10^3/uL (1.7-8.2); BASOPHILS % (AUTO) 1.5 % (0-2); EOSINOPHILS % (AUTO) 3.3 % (0-6); HEMATOCRIT 50.1 % (37.9-51.0); HEMOGLOBIN 16.2 g/dL (13.5-17.0); LYMPHOCYTES % (AUTO) 26.8 % (13-45); MEAN CORPUSCULAR HEMOGLOBIN 21.7 pg (27.0-33.4); MEAN CORPUSCULAR HGB CONC 32.3 g/dL (32.0-36.0); MEAN CORPUSCULAR VOLUME 67 fl (80-97); MONOCYTES % (AUTO) 7.1 % (3-13); PLATELET COUNT 234 10^3/uL (150-450); RED BLOOD COUNT 7.45 10^6/uL (4.35-5.55); SEGMENTED NEUTROPHILS % (AUTO) 61.3 % (42-78); TOTAL CELLS COUNTED % (AUTO) 100 %; WHITE BLOOD COUNT 8.6 10^3/uL (4.0-10.5)
--- NOTE | 2019-05-04 19:34 | ER Document Report ---
ED General - General Chief Complaint: Arrhythmia Stated Complaint: CHEST PAIN Time Seen by Provider: 05/04/19 19:16 Primary Care Provider: KAYLEEN CAMPBELL MD [Primary Care Provider] - Follow up as needed TRAVEL OUTSIDE OF THE [place] IN LAST 30 DAYS: No - HPI Notes: Patient is a 49-year-old male with a history of high blood pressure, hypertension, and SVT, who presents emergency department for evaluation of chest pain. It started about an hour ago when he was driving. He described it as a sharp and stabbing pain in his lower sternal area. He states it does not radiate. He has been short of breath and diaphoretic with it. He states his been taking his medications as prescribed, but admits his Catapres patch fell off of him yesterday in the shower. Otherwise no fevers or chills. No vomiting. He is been eating and drinking normally. - Related Data Allergies/Adverse Reactions: No Known Allergies Allergy (Verified 06/20/18 16:37) Home Medications: List reviewed, please see note Past Medical History - General Information source: Patient - Social History Smoking Status: Current Some Day Smoker Drug Abuse: Marijuana Family History: Reviewed & Not Pertinent, Hypertension Patient has suicidal ideation: No Patient has homicidal ideation: No - Past Medical History Cardiac Medical History: Reports: Hx Heart Attack, Hx Hypercholesterolemia, Hx Hypertension, Other - SVT Pulmonary Medical History: Reports: Hx COPD Renal/ Medical History: Denies: Hx Peritoneal Dialysis GI Medical History: Reports: Hx Gastroesophageal Reflux Disease Past Surgical History: Reports: Hx Cardiac Catheterization - Immunizations Hx Diphtheria, Pertussis, Tetanus Vaccination: No Review of Systems - Review of Systems Constitutional: See HPI EENT: No symptoms reported Cardiovascular: See HPI Respiratory: No symptoms reported Gastrointestinal: No symptoms reported Genitourinary: No symptoms reported Musculoskeletal: No symptoms reported Skin: No symptoms reported Neurological/Psychological: No symptoms reported Physical Exam - Vital signs Vitals: Resp Pulse Ox 20 100 05/04/19 19:04 05/04/19 19:04 - Notes Notes: This is a very pleasant 49-year-old gentleman who appears his stated age in a minor amount of distress. He is mildly tachypneic and diaphoretic. Vital signs reviewed, please refer to chart. Head is normocephalic, atraumatic. Pupils equal round, reactive to light. Neck is supple without meningismus. Heart is tachycardic with normal S1-S2. Lungs are clear to auscultation bilaterally. Abdomen is soft, nontender, normoactive bowel sounds throughout. Extremities without cyanosis, clubbing. Posterior calves are nontender. Peripheral pulses are equal. Patient is awake, alert, neurological exam is nonfocal. Course - Re-evaluation Re-evalutation: 05/04/19 19:33 Patient presents to the emergency department for evaluation. He was found to be in SVT initially. He was administered adenosine, and doses of 6 mg, 12 mg, 12 mg. He did not have any significant change in his rhythm with these medications. He was further administered Cardizem 25 mg, at which time he converted to sinus rhythm. Patient's blood pressure remains elevated, but his symptoms are overall improving. We will continue to monitor. 05/04/19 23:37 Patient remained chest pain-free throughout the course of his stay. He remained in sinus rhythm. I did not administer clonidine orally, as his clonidine patch did not stick yesterday. His blood pressure improved, although marginally. Patient's laboratory investigations revealed mild worsening of his renal function. He clearly has hypertensive kidney disease. We talked about this at length, and he already follows with nephrology. I urged him to follow-up more closely with nephrology, cardiology, and primary care. He voiced understanding. Otherwise, he is to continue his home medications. His troponin came back intermediately elevated, but came down on redraw. I do believe this is all rate related. The patient is stable, will discharge with close follow-up. - Vital Signs Vital signs: Temp Pulse Resp BP Pulse Ox 98.2 F 16 200/96 H 99 05/04/19 20:45 05/05/19 00:01 05/05/19 00:01 05/05/19 00:01 - Laboratory Result Diagrams: 05/04/19 19:10 05/04/19 19:10 Laboratory results interpreted by me: 05/04/19 05/04/19 05/04/19 19:10 19:10 19:30 RBC 7.45 H MCV 67 L MCH 21.7 L RDW 17.0 H Chloride 108 H BUN 36 H Creatinine 3.16 H Est GFR ( Amer) 25 L Est GFR (MDRD) Non-Af 21 L Urine Protein >=500 H Urine Blood SMALL H - EKG Interpretation by Me Additional EKG results interpreted by me: 05/04/19 19:34 Initial EKG showed an SVT with rate of 191 bpm. Normal axis, prolonged QT interval. LVH with changes concerning for lateral ischemia. Repeat EKG showed a sinus mechanism with rate of 99 bpm. Normal axis and intervals. Continued lateral ST changes, ischemia versus strain. Critical Care Note - Critical Care Note Total time excluding time spent on procedures (mins): 40 Discharge - Discharge Clinical Impression: Chronic kidney disease, SVT (supraventricular tachycardia) Condition: Stable Disposition: HOME, SELF-CARE Instructions: Kidney Failure ([facility]), Paroxysmal Supraventricular Tachycardia ([facility]) Additional Instructions: Please continue your home medications as prescribed. 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 Your kidney function has worsened slightly. This is likely secondary to your high blood pressure. Please continue to take your medicines, and discuss any further action you can do to control your blood pressure. If you develop worsening or new concerning symptoms of any sort, please return immediately to the emergency department for evaluation. Referrals: KAYLEEN CAMPBELL MD [Primary Care Provider] - Follow up as needed
[2019-05-04 19:49] LABS: ALBUMIN 4.2 g/dL (3.5-5.0); ALKALINE PHOSPHATASE 117 U/L (38-126); ANION GAP 9 (5-19); ASPARTATE AMINO TRANSFERASE 37 U/L (17-59); BILIRUBIN,DIRECT 0.1 mg/dL (0.0-0.4); BILIRUBIN,TOTAL 0.7 mg/dL (0.2-1.3); BLOOD UREA NITROGEN 36 mg/dL (7-20); CALCIUM 9.4 mg/dL (8.4-10.2); CARBON DIOXIDE 24 mmol/L (22-30); CHLORIDE 108 mmol/L (98-107); GLUCOSE 85 mg/dL (75-110); TOTAL PROTEIN 7.3 g/dL (6.3-8.2)
[2019-05-04 19:57] LABS: APPEARANCE,URINE CLEAR; BILIRUBIN,URINE NEGATIVE (NEGATIVE); COLOR,URINE STRAW; GLUCOSE, URINE NEGATIVE (NEGATIVE); KETONES,URINE NEGATIVE (NEGATIVE); LEUKOCYTE ESTERASE,URINE NEGATIVE (NEGATIVE); NITRITE,URINE NEGATIVE (NEGATIVE); PROTEIN,URINE >=500 mg/dL (NEGATIVE); URINE SPECIFIC GRAVITY 1.008; UROBILINOGEN,URINE NEGATIVE mg/dL (<2.0)
[2019-05-04] MEDS ORDERED: CLONIDINE HCL 0.2 MG TABLET PO ONE (20:03)
--- NOTE | 2019-05-04 20:20 | RADIOLOGY REPORT (SQ) ---
EXAM DESCRIPTION: AP portable chest radiograph CLINICAL HISTORY: 49 years Male, SVT COMPARISON: Two views of the chest July 01, 2018 FINDINGS: Lungs: Lungs are clear. No pneumonia or edema. No pneumothorax or pleural effusion. Mediastinum: Heart size is enlarged. There is widening of the mediastinum. Bones: Endplate spondylosis is noted. IMPRESSION: Enlargement of cardiac silhouette. No pneumonia or edema.
--- NOTE | 2019-05-04 22:02 | EKG REPORT ---
SEVERITY:- ABNORMAL ECG - SUPRAVENTRICULAR TACHYCARDIA LVH WITH SECONDARY REPOLARIZATION ABNORMALITY BORDERLINE INFERIOR Q WAVES : Confirmed by: Niko Oneill MD 04-May-2019 22:01:07
--- NOTE | 2019-05-04 22:02 | EKG REPORT ---
SEVERITY:- ABNORMAL ECG - SINUS RHYTHM PROBABLE LEFT ATRIAL ABNORMALITY LEFT VENTRICULAR HYPERTROPHY ABNORMAL T, CONSIDER ISCHEMIA, LATERAL LEADS ST ELEV, PROBABLE NORMAL EARLY REPOL PATTERN : Confirmed by: Niko Oneill MD 04-May-2019 22:00:55
[2019-05-05 00:25] VITALS: BP 200/96
== END 2019-05-05 00:40 | disposition home or self-care (01) ==
LOC: ER 18:54
DX: I47.1 Supraventricular tachycardia (principal); I13.10 Hypertensive heart and chronic kidney disease without heart failure, with stage 1 through stage 4 chronic kidney disease, or unspecified chronic kidney disease; N18.9 Chronic kidney disease, unspecified; T46.5X6A Underdosing of other antihypertensive drugs, initial encounter; Z91.138 Patient's unintentional underdosing of medication regimen for other reason; Z91.14 Patient's other noncompliance with medication regimen; J44.9 Chronic obstructive pulmonary disease, unspecified; I25.2 Old myocardial infarction; R07.9 Chest pain, unspecified; R06.02 Shortness of breath; R61 Generalized hyperhidrosis; F17.200 Nicotine dependence, unspecified, uncomplicated; F12.10 Cannabis abuse, uncomplicated; Z79.899 Other long term (current) drug therapy
CPT/HCPCS: 93005; 99291; 96361; 96374; 96375; 36415; 84443; 85025; 80053; 81001; 84484; 71045; 93010; J3490 ×2; J7030; J0153

== ENCOUNTER → 2019-05-19 | Outpatient (CLI) | payer MEDICAID ==
[2019-05-19 13:21] LABS: ALBUMIN 3.5 g/dL (3.5-5.0); ANION GAP 9 (5-19); BLOOD UREA NITROGEN 47 mg/dL (7-20); CALCIUM 8.8 mg/dL (8.4-10.2); CARBON DIOXIDE 19 mmol/L (22-30); CHLORIDE 108 mmol/L (98-107); GLUCOSE 161 mg/dL (75-110); PHOSPHORUS 4.5 mg/dL (2.5-4.5); POTASSIUM 5.4 mmol/L (3.6-5.0)
== END ==
LOC: OD 12:03
PROVIDERS: ATTEND Physician Assistant Medical
DX: I12.9 Hypertensive chronic kidney disease with stage 1 through stage 4 chronic kidney disease, or unspecified chronic kidney disease (principal); N17.9 Acute kidney failure, unspecified; N18.3 Chronic kidney disease, stage 3 (moderate); E87.5 Hyperkalemia; R80.9 Proteinuria, unspecified; E87.2 Acidosis
CPT/HCPCS: 36415; 80069

== ENCOUNTER → 2019-06-16 | Outpatient (CLI) | payer MEDICAID ==
[2019-06-16 13:24] LABS: ABSOLUTE EOSINOPHILS # (AUTO) 0.2 10^3/uL (0.0-0.6); ABSOLUTE LYMPHOCYTES (AUTO) 1.2 10^3/uL (0.5-4.7); ABSOLUTE MONOCYTES (AUTO) 0.3 10^3/uL (0.1-1.4); ABSOLUTE NEUT (AUTO) 5.3 10^3/uL (1.7-8.2); BASOPHILS % (AUTO) 0.5 % (0-2); EOSINOPHILS % (AUTO) 2.4 % (0-6); HEMOGLOBIN 13.4 g/dL (13.5-17.0); LYMPHOCYTES % (AUTO) 16.5 % (13-45); MEAN CORPUSCULAR HEMOGLOBIN 21.5 pg (27.0-33.4); MEAN CORPUSCULAR HGB CONC 32.7 g/dL (32.0-36.0); MEAN CORPUSCULAR VOLUME 66 fl (80-97); MONOCYTES % (AUTO) 4.8 % (3-13); PLATELET COUNT 222 10^3/uL (150-450); RED BLOOD COUNT 6.22 10^6/uL (4.35-5.55); RED CELL DISTRIBUTION WIDTH 16.7 % (11.5-14.0); SEGMENTED NEUTROPHILS % (AUTO) 75.8 % (42-78); TOTAL CELLS COUNTED % (AUTO) 100 %
[2019-06-16 13:37] LABS: APPEARANCE,URINE CLEAR; BILIRUBIN,URINE NEGATIVE (NEGATIVE); COLOR,URINE STRAW; GLUCOSE, URINE NEGATIVE (NEGATIVE); KETONES,URINE NEGATIVE (NEGATIVE); LEUKOCYTE ESTERASE,URINE NEGATIVE (NEGATIVE); NITRITE,URINE NEGATIVE (NEGATIVE); PROTEIN,URINE 100 mg/dL (NEGATIVE); URINE SPECIFIC GRAVITY 1.012; UROBILINOGEN,URINE NEGATIVE mg/dL (<2.0)
[2019-06-16 13:49] LABS: ALBUMIN 3.5 g/dL (3.5-5.0); ALKALINE PHOSPHATASE 79 U/L (38-126); ANION GAP 8 (5-19); ASPARTATE AMINO TRANSFERASE 17 U/L (17-59); BILIRUBIN,DIRECT 0.2 mg/dL (0.0-0.4); BILIRUBIN,TOTAL 0.4 mg/dL (0.2-1.3); BLOOD UREA NITROGEN 43 mg/dL (7-20); CARBON DIOXIDE 21 mmol/L (22-30); CHLORIDE 108 mmol/L (98-107); GLUCOSE 114 mg/dL (75-110); PHOSPHORUS 3.7 mg/dL (2.5-4.5); POTASSIUM 4.8 mmol/L (3.6-5.0); TOTAL PROTEIN 6.7 g/dL (6.3-8.2)
[2019-06-16 13:59] LABS: URINE CREATININE 90.6 mg/dL (22-328)
[2019-06-16 14:08] LABS: UR PRO/CREAT RATIO RESULT 3.3 mg/mg (0.0-0.2); URINE PROTEIN 297.3 mg/dL (<12)
== END ==
LOC: OD 12:45
PROVIDERS: ATTEND Physician Assistant Medical
DX: N17.9 Acute kidney failure, unspecified (principal); N18.3 Chronic kidney disease, stage 3 (moderate)
CPT/HCPCS: 36415; 80053; 81001; 82570; 83970; 84100; 84156; 85025

== ENCOUNTER → 2019-08-08 | Outpatient (CLI) | payer MEDICAID ==
[2019-08-08 09:32] LABS: ABSOLUTE BASOPHILS # (AUTO) 0.1 10^3/uL (0.0-0.2); ABSOLUTE EOSINOPHILS # (AUTO) 0.2 10^3/uL (0.0-0.6); ABSOLUTE LYMPHOCYTES (AUTO) 1.5 10^3/uL (0.5-4.7); ABSOLUTE MONOCYTES (AUTO) 0.5 10^3/uL (0.1-1.4); ABSOLUTE NEUT (AUTO) 5.8 10^3/uL (1.7-8.2); BASOPHILS % (AUTO) 0.8 % (0-2); EOSINOPHILS % (AUTO) 2.9 % (0-6); HEMATOCRIT 41.4 % (37.9-51.0); HEMOGLOBIN 13.7 g/dL (13.5-17.0); LYMPHOCYTES % (AUTO) 17.9 % (13-45); MEAN CORPUSCULAR HEMOGLOBIN 21.9 pg (27.0-33.4); MEAN CORPUSCULAR HGB CONC 33.2 g/dL (32.0-36.0); MEAN CORPUSCULAR VOLUME 66 fl (80-97); MONOCYTES % (AUTO) 6.5 % (3-13); PLATELET COUNT 176 10^3/uL (150-450); RED BLOOD COUNT 6.26 10^6/uL (4.35-5.55); SEGMENTED NEUTROPHILS % (AUTO) 71.9 % (42-78); TOTAL CELLS COUNTED % (AUTO) 100 %; WHITE BLOOD COUNT 8.1 10^3/uL (4.0-10.5)
[2019-08-08 09:36] LABS: APPEARANCE,URINE CLEAR; BILIRUBIN,URINE NEGATIVE (NEGATIVE); COLOR,URINE STRAW; GLUCOSE, URINE NEGATIVE (NEGATIVE); KETONES,URINE NEGATIVE (NEGATIVE); LEUKOCYTE ESTERASE,URINE NEGATIVE (NEGATIVE); NITRITE,URINE NEGATIVE (NEGATIVE); PROTEIN,URINE 100 mg/dL (NEGATIVE); UROBILINOGEN,URINE NEGATIVE mg/dL (<2.0)
[2019-08-08 09:48] LABS: ALBUMIN 3.5 g/dL (3.5-5.0); ANION GAP 6 (5-19); BLOOD UREA NITROGEN 42 mg/dL (7-20); CALCIUM 8.8 mg/dL (8.4-10.2); CARBON DIOXIDE 22 mmol/L (22-30); CHLORIDE 109 mmol/L (98-107); GLUCOSE 111 mg/dL (75-110); PHOSPHORUS 3.5 mg/dL (2.5-4.5); POTASSIUM 4.3 mmol/L (3.6-5.0)
[2019-08-08 10:05] LABS: URINE CREATININE 62.5 mg/dL (22-328)
[2019-08-08 10:16] LABS: UR PRO/CREAT RATIO RESULT 3.7 mg/mg (0.0-0.2)
== END ==
LOC: OD 08:57
PROVIDERS: ATTEND Physician Assistant Medical
DX: I13.0 Hypertensive heart and chronic kidney disease with heart failure and stage 1 through stage 4 chronic kidney disease, or unspecified chronic kidney disease (principal); I50.9 Heart failure, unspecified; N18.3 Chronic kidney disease, stage 3 (moderate); R80.9 Proteinuria, unspecified; E87.2 Acidosis; E87.5 Hyperkalemia
CPT/HCPCS: 36415; 80069; 81001; 82570; 83970; 84156; 85025

== ENCOUNTER 2019-11-07 23:13 | Emergency (ER) | payer MEDICAID ==
--- NOTE | 2019-11-07 23:29 | ER Document Report ---
ED General - General Stated Complaint: HEART RACING Time Seen by Provider: 11/07/19 23:26 Primary Care Provider: HELENE ROMAN PA-C [ALLIED HEALTH PROFESSIONAL] - Follow up as needed Notes: 49-year-old male presents with chest pain or shortness of breath. He has a history of apparently CHF, and was experiencing chest pain palpitations with shortness of breath since about an hour and a half ago. Found to have a heart rate in the 200 range per EMS, narrow complex, he was given 1 dose of adenosine then to full higher dose, and finally cardioverted with some Versed. He converted to sinus rhythm. He no longer has chest pain or palpitations. TRAVEL OUTSIDE OF THE [place] IN LAST 30 DAYS: No - Related Data Allergies/Adverse Reactions: No Known Allergies Allergy (Verified 06/20/18 16:37) Past Medical History - General Information source: Patient - Social History Smoking Status: Unknown if Ever Smoked Family History: Reviewed & Not Pertinent, Hypertension - Past Medical History Cardiac Medical History: Reports: Hx Heart Attack, Hx Hypercholesterolemia, Hx Hypertension Pulmonary Medical History: Reports: Hx COPD Renal/ Medical History: Denies: Hx Peritoneal Dialysis GI Medical History: Reports: Hx Gastroesophageal Reflux Disease Past Surgical History: Reports: Hx Cardiac Catheterization - Immunizations Hx Diphtheria, Pertussis, Tetanus Vaccination: No Review of Systems - Review of Systems Notes: REVIEW OF SYSTEMS GEN: Denies fever, chills, weight loss ENT: Denies sore throat, nasal discharge, ear pain EYES: Denies blurry vision, eye pain, discharge CV: Chest pain palpitations RESP: Denies cough, shortness of breath, wheezing GI: Denies abdominal pain, nausea, vomiting, diarrhea MSK: Denies joint pain/swelling, edema, SKIN: Denies rash, skin lesions LYMPH: Denies swollen glands/lymph nodes NEURO: Denies headache, focal weakness or numbness, dizziness PSYCH: Denies depression, suicidal or homicidal ideation PHYSICAL EXAMINATION General: No acute distress, well-nourished Head: Atraumatic, normocephalic ENT: Mouth normal, oropharynx moist, no exudates or tonsillar enlargement Eyes: Conjunctiva normal, pupils equal, lids normal Neck: No JVD, supple, no guarding CVS: Normal rate, regular rhythm, no murmurs Resp: No resp distress, equal and normal breath sounds bilaterally GI: Nondistended, soft, no tenderness to palpation, no rebound or guarding Ext: No deformities, no edema, normal range of motion in upper and lower ext Back: No CVA or midline TTP Skin: No rash, warm Lymphatic: No lymphadeopathy noted Neuro: Awake, alert. Face symmetric. GCS 15. Physical Exam - Vital signs Vitals: Temp 98.4 F 11/07/19 23:13 Course - Re-evaluation Re-evalutation: 11/07/19 23:28 Chest pain palpitations likely secondary to SVT. EMS cardioverted him although I am unclear why Perhaps because he had chest pain? He did not have any hypotension or malperfusion. He is in sinus rhythm currently we will check basic labs and electrolytes. 11/08/19 00:42 Patient's blood pressure is quite high. He is due for several of his nighttime medication. I gave him a dose of labetalol, and then I asked him to take his nighttime Coreg hydralazine and put on a new clonidine patch for which he is due right now. Troponin detectable but has been in the past that he has no ongoing chest pain. EKG shows repolarization change that is essentially unchanged from prior as well. Maintain sinus rhythm pain-free in the ED. We will follow-up with his women nurse Dr. Stanton and his kidney doctors and primary care. I have discussed with the patient there likely diagnosis, aftercare plan, follow-up plans and my usual and customary return precautions. They verbalized understanding of this. - Vital Signs Vital signs: Temp Pulse Resp BP Pulse Ox 98.4 F 20 196/106 H 100 11/07/19 23:19 11/08/19 00:01 11/08/19 00:01 11/08/19 00:01 - Laboratory Result Diagrams: 11/07/19 23:46 11/07/19 23:46 Laboratory results interpreted by me: 11/07/19 11/07/19 23:46 23:46 RBC 5.74 H Hgb 12.3 L MCV 67 L MCH 21.5 L RDW 16.3 H Chloride 111 H BUN 32 H Creatinine 3.11 H Est GFR ( Amer) 26 L Est GFR (MDRD) Non-Af 21 L Glucose 119 H Critical Care Note - Critical Care Note Total time excluding time spent on procedures (mins): 32 Comments: The above patient is critically ill. Not including procedures, but including direct re-evaluations, speaking with patient and/or consultants, interpreting results, and documenting, I spent the total amount of minute listed listed above on critical care time Discharge - Discharge Clinical Impression: Supraventricular tachycardia, Hypertension Condition: Good Disposition: HOME, SELF-CARE Instructions: Palpitations (Irregular or Rapid Heartrate) ([facility]) Additional Instructions: Your blood pressure continues to be elevated and needs to be followed very closely by primary care doctor. You had a heart arrhythmia called SVT. This was fixed by the paramedics and did not recur while you are in the ER. Without evidence of heart attack. Please follow-up immediately with your regular doctor and with your women nurse. Referrals: HELENE ROMAN PA-C [ALLIED HEALTH PROFESSIONAL] - Follow up as needed
[2019-11-07 23:54] LABS: ABSOLUTE BASOPHILS # (AUTO) 0.1 10^3/uL (0.0-0.2); ABSOLUTE EOSINOPHILS # (AUTO) 0.2 10^3/uL (0.0-0.6); ABSOLUTE LYMPHOCYTES (AUTO) 1.4 10^3/uL (0.5-4.7); ABSOLUTE MONOCYTES (AUTO) 0.4 10^3/uL (0.1-1.4); ABSOLUTE NEUT (AUTO) 7.3 10^3/uL (1.7-8.2); BASOPHILS % (AUTO) 1.4 % (0-2); EOSINOPHILS % (AUTO) 2.2 % (0-6); HEMATOCRIT 38.4 % (37.9-51.0); HEMOGLOBIN 12.3 g/dL (13.5-17.0); LYMPHOCYTES % (AUTO) 14.7 % (13-45); MEAN CORPUSCULAR HEMOGLOBIN 21.5 pg (27.0-33.4); MEAN CORPUSCULAR VOLUME 67 fl (80-97); PLATELET COUNT 204 10^3/uL (150-450); RED BLOOD COUNT 5.74 10^6/uL (4.35-5.55); RED CELL DISTRIBUTION WIDTH 16.3 % (11.5-14.0); SEGMENTED NEUTROPHILS % (AUTO) 77.7 % (42-78); TOTAL CELLS COUNTED % (AUTO) 100 %; WHITE BLOOD COUNT 9.3 10^3/uL (4.0-10.5)
[2019-11-08] MEDS ORDERED: LABETALOL HCL INJ 20 MG/4 ML DISP.SYRIN IV ONE (00:03)
[2019-11-08 00:10] LABS: ANION GAP 5 (5-19); BLOOD UREA NITROGEN 32 mg/dL (7-20); CALCIUM 8.6 mg/dL (8.4-10.2); CARBON DIOXIDE 22 mmol/L (22-30); CHLORIDE 111 mmol/L (98-107); GLUCOSE 119 mg/dL (75-110)
--- NOTE | 2019-11-08 00:17 | RADIOLOGY REPORT (SQ) ---
XR CHEST 1 VIEW HISTORY: Shortness of breath. COMPARISON: 05/04/2019 FINDINGS: The heart size is mildly enlarged but stable in size. There is no pulmonary vascular congestion. No consolidation, pleural effusion, or pneumothorax is seen. The bony structures are preserved. IMPRESSION: No evidence of acute cardiopulmonary disease.
[2019-11-08 00:52] VITALS: BP 187/91
--- NOTE | 2019-11-08 08:22 | EKG REPORT ---
SEVERITY:- ABNORMAL ECG - SINUS RHYTHM RIGHT ATRIAL ABNORMALITY LEFT VENTRICULAR HYPERTROPHY ABNORMAL T, PROBABLE ISCHEMIA, ANT-LAT LEADS ANTERIOR ST ELEVATION, PROBABLY DUE TO LVH : Confirmed by: Parul Carnes MD 08-Nov-2019 08:20:45
== END 2019-11-08 01:01 | disposition home or self-care (01) ==
LOC: ER 23:13
DX: I47.1 Supraventricular tachycardia (principal); I11.0 Hypertensive heart disease with heart failure; R07.9 Chest pain, unspecified; R06.02 Shortness of breath; R00.2 Palpitations; I50.9 Heart failure, unspecified; E78.00 Pure hypercholesterolemia, unspecified; I25.2 Old myocardial infarction
CPT/HCPCS: 93005; 99291; 96374; 36415; 85025; 80048; 84484; 71045; 93010; J3490

== ENCOUNTER 2020-01-09 16:20 | Inpatient (IN) | payer MEDICAID ==
[2020-01-09] MEDS ORDERED: ADENOSINE INJ/PF 6 MG/2 ML SDV IV ONE ×3 (17:01→18:05)
--- NOTE | 2020-01-09 17:25 | ER Document Report ---
ED General - General Chief Complaint: Chest Pain Stated Complaint: CHEST PAIN Primary Care Provider: KAYLEEN CAMPBELL MD [Primary Care Provider] - Follow up as needed Mode of Arrival: Ambulatory Information source: Patient, [facility] Records Notes: Patient is a 49-year-old male presenting to the emergency department with a 2- day history of palpitations. Patient states has been seen several times in the past for similar complaint. He states that he has not seen a conductor sleeping car. He states that he is taking his medication as prescribed. Patient reports 1 soda a day but no other major caffeine denies drug use. Patient denies prior causes no anxiety no chest pain shortness of breath or increased activity over the past several days. TRAVEL OUTSIDE OF THE [place] IN LAST 30 DAYS: No - HPI Onset: Yesterday Onset/Duration: Persistent Quality of pain: Pressure Severity: Moderate Pain Level: 3 Associated symptoms: Shortness of breath Exacerbated by: Movement, Walking, Coughing, Deep breathing Relieved by: Denies Similar symptoms previously: Yes Recently seen / treated by doctor: Yes - Related Data Allergies/Adverse Reactions: No Known Allergies Allergy (Verified 06/20/18 16:37) Past Medical History - General Information source: Patient, [facility] Records - Social History Smoking Status: Current Every Day Smoker Cigarette use (# per day): Yes Chew tobacco use (# tins/day): No Smoking Education Provided: Yes Frequency of alcohol use: Rare Drug Abuse: None Lives with: Family Family History: Reviewed & Not Pertinent, Hypertension Patient has suicidal ideation: No Patient has homicidal ideation: No - Past Medical History Cardiac Medical History: Reports: Hx Heart Attack, Hx Hypercholesterolemia, Hx Hypertension, Other - svt Pulmonary Medical History: Reports: Hx COPD Renal/ Medical History: Denies: Hx Peritoneal Dialysis GI Medical History: Reports: Hx Gastroesophageal Reflux Disease Past Surgical History: Reports: Hx Cardiac Catheterization - Immunizations Hx Diphtheria, Pertussis, Tetanus Vaccination: No Review of Systems - Review of Systems Constitutional: No symptoms reported EENT: No symptoms reported Cardiovascular: See HPI Respiratory: See HPI Gastrointestinal: Nausea Genitourinary: No symptoms reported Male Genitourinary: No symptoms reported Musculoskeletal: No symptoms reported Skin: No symptoms reported Hematologic/Lymphatic: No symptoms reported Neurological/Psychological: No symptoms reported Physical Exam - Vital signs Vitals: Resp 19 01/09/20 16:44 - Notes Notes: PHYSICAL EXAMINATION: GENERAL: Well-appearing, well-nourished and demonstrates mild distress secondary to the palpitations and mild nausea. HEAD: Atraumatic, normocephalic. EYES: Pupils equal round and reactive to light, extraocular movements intact, sclera anicteric, conjunctiva are normal. ENT: nares patent, oropharynx clear without exudates. Moist mucous membranes. NECK: Normal range of motion, supple without lymphadenopathy, no appreciable JVD LUNGS: Lungs clear to auscultation bilaterally and equal. No wheezes rales or rhonchi. HEART: SVT ABDOMEN: Soft, nontender, normal bowel sounds. No guarding, no rebound. No masses appreciated. EXTREMITIES: Active full range of motion, no pitting or edema. No cyanosis. 2+ pulses x4 NEUROLOGICAL: No focal neurological deficits. Moves all extremities spontaneously and on command. SKIN: Warm, Dry, and intact. Normal turgor, no rashes or lesions noted. Course - Re-evaluation Re-evalutation: 01/09/20 17:27 On presentation to the emergency department the patient was brought straight back to hospital bed EKG was obtained and IV access and monitoring was initiated. Patient was given 6 mg of rapid push IV adenosine without any change in EKG subsequent to this patient received 12 mg of adenosine which did seem to break the SVT and patient is in a normal sinus rhythm at this time. Patient remains hypertensive and will be reevaluated in 20 to 30 minutes to see if blood pressure has normalized once the patient has begun to settle. Portable chest x- ray and lab work has been initiated. 01/09/20 19:14 Patient is feeling better at this time. On reevaluation the patient was napping but does awake to conversation. Blood pressure is gradually normalizing after 10 mg of IV hydralazine. Patient understands the need for admission. I have spoken to the patient's primary care provider Dr. Campbell who requests I contact the covering physician for tonight for admission. Currently waiting parachute cushion installer back. 01/09/20 20:41 Patient has been consulted and accepted by Dr. Rogers. Further orders will be managed by him. Patient is feeling moderately better. - Vital Signs Vital signs: Temp Pulse Resp BP Pulse Ox 98.1 F 26 H 203/97 H 100 01/09/20 16:48 01/09/20 19:31 01/09/20 19:31 01/09/20 19:31 - Laboratory Result Diagrams: 01/09/20 16:54 01/09/20 16:54 Laboratory results interpreted by me: 01/09/20 01/09/20 16:54 16:54 WBC 12.5 H RBC 6.47 H MCV 66 L MCH 21.6 L RDW 16.3 H Lymph % (Auto) 10.7 L Absolute Neuts (auto) 10.5 H Seg Neutrophils % 83.8 H BUN 46 H Creatinine 3.18 H Est GFR ( Amer) 25 L Est GFR (MDRD) Non-Af 21 L Glucose 158 H - Diagnostic Test Radiology reviewed: Reports reviewed - EKG Interpretation by Me EKG shows normal: Sinus rhythm Rate: Tachycardia Rhythm: SVT When compared to previous EKG there are: Previous EKG unavailable Additional EKG results interpreted by me: 01/09/20 17:30 Initial EKG shows sinus tachycardia with LVH rate of 164 bpm there is T wave inversion and depression. Prolongation of the QT interval of 496 ms and obvious left axis deviation. Repeat EKG after conversion patient shows sinus rhythm 86 bpm normalization of the QTC however patient still has inversion and mild depression of the T wave section in the lateral leads. Discharge - Discharge Clinical Impression: SVT (supraventricular tachycardia), Accelerated hypertension, Renal insufficiency Chest pain, unspecified Qualifiers: Chest pain type: unspecified Qualified Code(s): R07.9 - Chest pain, unspecified Condition: Stable Disposition: ADMITTED OBSERVATION Admitting Provider: [facility] Unit Admitted: [facility]U Referrals: KAYLEEN CAMPBELL MD [Primary Care Provider] - Follow up as needed
--- NOTE | 2020-01-09 17:56 | EKG REPORT ---
SEVERITY:- ABNORMAL ECG - SINUS RHYTHM BIATRIAL ABNORMALITIES LVH WITH SECONDARY REPOLARIZATION ABNORMALITY ABNORMAL T, PROBABLE ISCHEMIA, LATERAL LEADS : Confirmed by: Niko Oneill MD 09-Jan-2020 17:56:28
--- NOTE | 2020-01-09 17:58 | EKG REPORT ---
SEVERITY:- ABNORMAL ECG - SINUS OR ATRIAL TACHYCARDIA LVH WITH SECONDARY REPOLARIZATION ABNORMALITY ABNORMAL T, PROBABLE ISCHEMIA, LATERAL LEADS BORDERLINE PROLONGED QT INTERVAL : Confirmed by: Niko Oneill MD 09-Jan-2020 17:57:35
[2020-01-09 18:06] LABS: INTERNATIONAL RATION (INR) 0.97; PROTHROMBIN TIME 13.1 SEC (11.4-15.4)
[2020-01-09 18:09] LABS: ABSOLUTE BASOPHILS # (AUTO) 0.1 10^3/uL (0.0-0.2); ABSOLUTE EOSINOPHILS # (AUTO) 0.1 10^3/uL (0.0-0.6); ABSOLUTE LYMPHOCYTES (AUTO) 1.3 10^3/uL (0.5-4.7); ABSOLUTE MONOCYTES (AUTO) 0.5 10^3/uL (0.1-1.4); ABSOLUTE NEUT (AUTO) 10.5 10^3/uL (1.7-8.2); BASOPHILS % (AUTO) 0.6 % (0-2); EOSINOPHILS % (AUTO) 0.5 % (0-6); HEMATOCRIT 42.8 % (37.9-51.0); LYMPHOCYTES % (AUTO) 10.7 % (13-45); MEAN CORPUSCULAR HEMOGLOBIN 21.6 pg (27.0-33.4); MEAN CORPUSCULAR HGB CONC 32.7 g/dL (32.0-36.0); MEAN CORPUSCULAR VOLUME 66 fl (80-97); MONOCYTES % (AUTO) 4.4 % (3-13); PLATELET COUNT 263 10^3/uL (150-450); RED BLOOD COUNT 6.47 10^6/uL (4.35-5.55); RED CELL DISTRIBUTION WIDTH 16.3 % (11.5-14.0); SEGMENTED NEUTROPHILS % (AUTO) 83.8 % (42-78); TOTAL CELLS COUNTED % (AUTO) 100 %; WHITE BLOOD COUNT 12.5 10^3/uL (4.0-10.5)
[2020-01-09 18:20] LABS: ALBUMIN 3.9 g/dL (3.5-5.0); ALKALINE PHOSPHATASE 99 U/L (38-126); BILIRUBIN,DIRECT 0.3 mg/dL (0.0-0.4); BLOOD UREA NITROGEN 46 mg/dL (7-20); CARBON DIOXIDE 24 mmol/L (22-30); CREATINE KINASE 78 U/L (55-170); GLUCOSE 158 mg/dL (75-110); TOTAL PROTEIN 6.8 g/dL (6.3-8.2)
--- NOTE | 2020-01-09 18:21 | RADIOLOGY REPORT (SQ) ---
EXAM DESCRIPTION: CHEST SINGLE VIEW IMAGES COMPLETED DATE/TIME: 01/09/2020 5:52 pm REASON FOR STUDY: cp/sob COMPARISON: 11/08/2019 EXAM PARAMETERS: NUMBER OF VIEWS: One view. TECHNIQUE: Single frontal radiographic view of the chest acquired. RADIATION DOSE: NA LIMITATIONS: None. FINDINGS: LUNGS AND PLEURA: No opacities, masses or pneumothorax. No pleural effusion. MEDIASTINUM AND HILAR STRUCTURES: No masses. Contour normal. HEART AND VASCULAR STRUCTURES: Heart size is borderline. No pulmonary edema. BONES: No acute findings. HARDWARE: None in the chest. OTHER: No other significant finding. IMPRESSION: Borderline cardiomegaly without pulmonary edema. TECHNICAL DOCUMENTATION: JOB ID: [id number] 2010 [employer]- All Rights Reserved Reading location - IP/workstation name: [email or web address]
[2020-01-09 18:30] LABS: CREATINE KINASE MB 2.55 ng/mL (<4.55)
[2020-01-09] MEDS ORDERED: HYDRALAZINE HCL INJ/PF 20 MG/1 ML SDV IV ONE ×2 (18:31→22:30)
[2020-01-09 18:32] LABS: ANION GAP 10 (5-19); ASPARTATE AMINO TRANSFERASE 24 U/L (17-59); CALCIUM 9.1 mg/dL (8.4-10.2); CHLORIDE 104 mmol/L (98-107); POTASSIUM 4.6 mmol/L (3.6-5.0)
[2020-01-09 18:35] LABS: TROPONIN I 0.165 ng/mL
[2020-01-10] MEDS: HYDRALAZINE HCL INJ/PF 20 MG/1 ML SDV IV PRN ×3 (07:33→19:51)
[2020-01-10] MEDS: AMLODIPINE BESYLATE 10 MG TABLET PO SCH (09:48)
[2020-01-10] MEDS: ISOSORB DINIT/HYDRALAZINE HCL 20-37.5 MG TABLET PO SCH ×3 (09:48→22:29)
[2020-01-10] MEDS: ASPIRIN 81 MG TABLET, ENT COATED PO SCH (09:49)
--- NOTE | 2020-01-10 09:51 | PDOC H&P ---
History of Present Illness Admission Date/PCP: 01/09/20 21:14 BEV CAMPBELL MD Patient complains of: Palpitation History of Present Illness: GEETHA ADRIAN is a 49 year old male patient of Dr. Bev Campbell who presented to the ED with two days history of palpitation. He denied associated chest pain or difficulty with breathing. He denied any associated dizziness, headache or focal weakness. He denied any fever, chills, dysuria, or coughing. Patient denied illicit drug usage, excessive caffeine ingestion, or alcohol abuse. He reported recent of his mother and brother, former from natural cause and latter from complication of pancreatitis. He admitted to missing out on his home medication subsequently. His initial evaluation in the ED was significant for severely elevated blood pressure and supraventricular tachycardia. His laboratory evaluation revealed marginally elevated Troponin I level and worsening renal indices. There is associated leukocytosis with left shift without identified source of ongoing infection. His morbidities are as listed below. He was advised hospitalization for further evaluation and management. Past Medical History Cardiac Medical History: Reports: Myocardial Infarction, Hyperlipidema, Hypertension, Other - svt Pulmonary Medical History: Reports: Chronic Obstructive Pulmonary Disease (COPD) GI Medical History: Reports: Gastroesophageal Reflux Disease Psychiatric Medical History: Reports: Depression - Significant losses of mother and brother Past Surgical History Past Surgical History: Reports: Cardiac Catheterization Social History Lives with: Family Smoking Status: Current Every Day Smoker Cigarettes Packs Per Day: 0.5 Electronic Cigarette use?: No Number of Years Smokin Last Time Smoked: Frequency of Alcohol Use: Occasional Hx Recreational Drug Use: Yes Drugs: Marijuana Hx Prescription Drug Abuse: No - Advance Directive Resuscitation Status: Full Code Family History Family History: Reviewed & Not Pertinent, Hypertension Parental Family History Reviewed: Yes Children Family History Reviewed: Yes Sibling(s) Family History Reviewed.: Yes Medication/Allergy Home Medications: Amlodipine Besylate [Norvasc 5 mg Tablet] 5 mg PO QHS #30 tablet 01/25/17 Aspirin 81 mg PO DAILY #30 tab.chew 01/25/17 Carvedilol [Coreg 12.5 mg Tablet] 25 mg PO Q12A #60 tablet 01/25/17 Clonidine [Catapres-Tts 2 (0.2 mg/24 Hr) Transderm Ptch] 1 each TD We@1000 #12 patch.tdwk 01/25/17 Isosorb Dinit/Hydralazine HCl [Bidil 20-37.5 mg Tablet] 1 tab PO Q8 #90 tablet 01/25/17 Valsartan [Diovan 160 mg Tablet] 160 mg PO DAILY #30 tablet 01/25/17 Tramadol HCl [Ultram 50 mg Tablet] 50 mg PO ASDIR PRN #20 tablet 07/22/17 Amox Tr/Potassium Clavulanate [Augmentin 875-125 Tablet] 1 tab PO BID 7 Days #14 tablet 06/20/18 Benzonatate [Tessalon Perles 100 mg Capsule] 100 mg PO Q8HP PRN #40 capsule 07/02/18 Allergies/Adverse Reactions: No Known Allergies Allergy (Verified 06/20/18 16:37) Review of Systems Constitutional: ABSENT: chills, fever(s), headache(s) Eyes: ABSENT: visual disturbances Ears: ABSENT: hearing changes Nose, Mouth, and Throat: ABSENT: headache(s) Cardiovascular: PRESENT: palpitations. ABSENT: chest pain, dyspnea on exertion, edema, orthropnea Respiratory: ABSENT: cough, hemoptysis Gastrointestinal: ABSENT: abdominal pain, constipation, diarrhea, hematemesis, hematochezia, nausea, vomiting Genitourinary: ABSENT: dysuria, hematuria Musculoskeletal: PRESENT: back pain - reported as chronic due to degenrative disc disease. ABSENT: joint swelling Integumentary: ABSENT: diaphoresis, rash, wounds Neurological: ABSENT: abnormal gait, abnormal speech, confusion, dizziness, focal weakness, syncope Psychiatric: ABSENT: anxiety, depression, homidical ideation, suicidal ideation Endocrine: ABSENT: cold intolerance, heat intolerance, menstrual abnormalities, polydipsia, polyuria Hematologic/Lymphatic: ABSENT: easy bleeding, easy bruising, lymphadenopathy Physical Exam Vital Signs: Temp Pulse Resp BP Pulse Ox 98.5 F 88 16 219/101 H 99 01/10/20 08:09 01/10/20 08:09 01/10/20 08:09 01/10/20 08:09 01/10/20 08:09 Intake & Output 01/09/20 01/10/20 01/11/20 06:59 06:59 06:59 Output Total 475 Balance -475 Weight 75.4 kg General appearance: PRESENT: no acute distress, well-developed, well-nourished Head exam: PRESENT: atraumatic, normocephalic Eye exam: PRESENT: conjunctiva pink, EOMI, PERRLA. ABSENT: scleral icterus Ear exam: PRESENT: normal external ear exam Mouth exam: PRESENT: moist, tongue midline Neck exam: PRESENT: full ROM. ABSENT: carotid bruit, JVD, lymphadenopathy, thyromegaly Respiratory exam: PRESENT: clear to auscultation oly Cardiovascular exam: PRESENT: RRR, +S1, +S2. ABSENT: diastolic murmur, rubs, systolic murmur Pulses: PRESENT: normal dorsalis pedis pul, +2 pedal pulses bilateral Vascular exam: PRESENT: normal capillary refill. ABSENT: pallor GI/Abdominal exam: PRESENT: normal bowel sounds, soft. ABSENT: distended, guarding, mass, organolmegaly, rebound, tenderness Rectal exam: PRESENT: deferred Extremities exam: ABSENT: pedal edema Musculoskeletal exam: PRESENT: ambulatory Neurological exam: PRESENT: alert, awake, oriented to person, oriented to place, oriented to time, oriented to situation, CN II-XII grossly intact. ABSENT: motor sensory deficit Psychiatric exam: PRESENT: appropriate affect, normal mood. ABSENT: homicidal ideation, suicidal ideation Skin exam: PRESENT: dry, intact, warm. ABSENT: cyanosis, rash Results Laboratory Results: 01/09/20 16:54 01/09/20 16:54 01/09/20 01/09/20 16:54 16:54 WBC 12.5 H RBC 6.47 H Hgb 14.0 Hct 42.8 MCV 66 L MCH 21.6 L MCHC 32.7 RDW 16.3 H Plt Count 263 Seg Neutrophils % 83.8 H Sodium 138.1 Potassium 4.6 Chloride 104 Carbon Dioxide 24 Anion Gap 10 BUN 46 H Creatinine 3.18 H Est GFR ( Amer) 25 L Glucose 158 H Calcium 9.1 Total Bilirubin 1.0 AST 24 Alkaline Phosphatase 99 Total Protein 6.8 Albumin 3.9 01/09/20 01/09/20 01/09/20 16:54 16:54 20:10 Creatine Kinase 78 CK-MB (CK-2) 2.55 Troponin I 0.165 0.187 Impressions: Chest X-Ray 01/09/20 17:19 IMPRESSION: Borderline cardiomegaly without pulmonary edema. Assessment & Plan - Diagnosis (1) Accelerated hypertension Is this a current diagnosis for this admission?: Yes Plan: See covering admitting attending physician orders for details about care plan. (2) SVT (supraventricular tachycardia) Is this a current diagnosis for this admission?: Yes Plan: See covering admitting attending physician orders for details about care plan. (3) CKD (chronic kidney disease) stage 4, GFR 15-29 ml/min Is this a current diagnosis for this admission?: Yes Plan: See covering admitting attending physician orders for details about care plan. (4) Hyperlipidemia Qualifiers: Hyperlipidemia type: unspecified Qualified Code(s): E78.5 - Hyperlipidemia, unspecified Is this a current diagnosis for this admission?: Yes Plan: See covering admitting attending physician orders for details about care plan. - Time Time Spent: 50 to 70 Minutes Medications reviewed and adjusted accordingly: Yes Anticipated Discharge Disposition: Home, Self Care Anticipated Discharge Timeframe: within 72 hours - Inpatient Certification Based on my medical assessment, after consideration of the patient's comorbidities, presenting symptoms, or acuity I expect that the services needed warrant INPATIENT care.: Yes I certify that my determination is in accordance with my understanding of Medicare's requirements for reasonable and necessary INPATIENT services [42 CFR 412.3e].: Yes Medical Necessity: Significant Comorbidiites Make Outpatient Treatment Too Risky, Need Close Monitoring Due to Risk of Patient Decompensation, Need For Continuous Telemetry Monitoring, Risk of Complication if Not Cared For in Hospital, Risk of Diagnosis Which Will Require Inpatient Eval/Care/Monitoring Post Hospital Care: D/C Web Sizer Documentation - Plan Summary Plan Summary: See covering admitting attending physician orders for details about care plan.
[2020-01-10] MEDS ORDERED: VALSARTAN 160 MG TABLET PO SCH (10:00)
[2020-01-10] MEDS ORDERED: CARVEDILOL 12.5 MG TABLET PO SCH (10:00)
[2020-01-10] MEDS ORDERED: CLONIDINE 0.1 MG/24 HR PATCH.TDWK TD SCH (10:00)
[2020-01-10 11:18] LABS: CREATINE KINASE MB 2.17 ng/mL (<4.55)
[2020-01-10 11:22] LABS: TROPONIN I 0.153 ng/mL
[2020-01-10] MEDS: HEPARIN SOD (PORCINE) 5,000 UNIT/ML 1 ML VIAL SUBCUT SCH ×2 (13:20→22:28)
[2020-01-10] MEDS: TRAMADOL HCL 50 MG TABLET PO PRN (21:04)
[2020-01-10] MEDS: CARVEDILOL 12.5 MG TABLET PO SCH (22:29)
[2020-01-11] MEDS: ISOSORB DINIT/HYDRALAZINE HCL 20-37.5 MG TABLET PO SCH ×2 (06:14→14:26)
[2020-01-11] MEDS: HEPARIN SOD (PORCINE) 5,000 UNIT/ML 1 ML VIAL SUBCUT SCH ×3 (06:15→21:31)
[2020-01-11] MEDS: PANTOPRAZOLE SODIUM 40 MG TABLET.DR PO SCH (06:15)
[2020-01-11] MEDS: ASPIRIN 81 MG TABLET, ENT COATED PO SCH (10:11)
[2020-01-11] MEDS: CARVEDILOL 12.5 MG TABLET PO SCH ×2 (10:11→21:30)
[2020-01-11] MEDS: HYDRALAZINE HCL INJ/PF 20 MG/1 ML SDV IV PRN (10:12)
[2020-01-11] MEDS: AMLODIPINE BESYLATE 10 MG TABLET PO SCH (10:12)
--- NOTE | 2020-01-11 15:53 | PDOC PROGRESS REPORT ---
Subjective Progress Note for:: 01/11/20 Subjective:: Patient deneid any chest pain or difficulty with breathing. No headache or dizziness. No nausea, vomiting or abdominal pain. No fever or chills. Reason For Visit: ACCELERATED HYPERTENSION,SVT,CHRONIC RENAL FAILURE Physical Exam Vital Signs: Temp Pulse Resp BP Pulse Ox 97.5 F 64 16 190/93 H 100 01/11/20 11:41 01/11/20 11:41 01/11/20 11:41 01/11/20 11:41 01/11/20 11:41 Intake & Output 01/10/20 01/11/20 01/12/20 06:59 06:59 06:59 Intake Total 1161 240 Output Total 475 Balance -475 1161 240 Weight 75.4 kg 75.3 kg General appearance: PRESENT: no acute distress Head exam: PRESENT: atraumatic, normocephalic Eye exam: PRESENT: conjunctiva pink. ABSENT: scleral icterus Respiratory exam: PRESENT: clear to auscultation oly Cardiovascular exam: PRESENT: RRR, +S1, +S2. ABSENT: diastolic murmur, rubs, s ystolic murmur Vascular exam: ABSENT: pallor GI/Abdominal exam: PRESENT: normal bowel sounds, soft. ABSENT: tenderness Extremities exam: ABSENT: pedal edema Neurological exam: PRESENT: alert, awake, oriented to person, oriented to place, oriented to time, oriented to situation, CN II-XII grossly intact. ABSENT: motor sensory deficit Skin exam: PRESENT: dry, warm Results Laboratory Results: 01/09/20 16:54 01/09/20 16:54 01/09/20 01/09/20 01/09/20 16:54 16:54 20:10 Creatine Kinase 78 CK-MB (CK-2) 2.55 Troponin I 0.165 0.187 01/10/20 01/10/20 10:34 10:34 Creatine Kinase 77 CK-MB (CK-2) 2.17 Troponin I 0.153 Impressions: Chest X-Ray 01/09/20 17:19 IMPRESSION: Borderline cardiomegaly without pulmonary edema. Assessment & Plan - Diagnosis (1) Accelerated hypertension Is this a current diagnosis for this admission?: Yes (2) SVT (supraventricular tachycardia) Is this a current diagnosis for this admission?: Yes (3) CKD (chronic kidney disease) stage 4, GFR 15-29 ml/min Is this a current diagnosis for this admission?: Yes (4) Hyperlipidemia Qualifiers: Hyperlipidemia type: unspecified Qualified Code(s): E78.5 - Hyperlipidemia, unspecified Is this a current diagnosis for this admission?: Yes - Time Time Spent with patient: 25-34 minutes Level of Care: IMCU Medications reviewed and adjusted accordingly: Yes Anticipated discharge: Home Anticipated DC Timeframe: within 72 hours - Inpatient Certification Based on my medical assessment, after consideration of the patient's comorbidities, presenting symptoms, or acuity I expect that the services needed warrant INPATIENT care.: Yes I certify that my determination is in accordance with my understanding of Medicare's requirements for reasonable and necessary INPATIENT services [42 CFR 412.3e].: Yes Medical Necessity: Significant Comorbidiites Make Outpatient Treatment Too Risky, Need Close Monitoring Due to Risk of Patient Decompensation, Need For Continuous Telemetry Monitoring, Risk of Complication if Not Cared For in Hospital, Risk of Diagnosis Which Will Require Inpatient Eval/Care/Monitoring Post Hospital Care: D/C Surgery Manager Documentation - Plan Summary Plan Summary: D/C BiDil. Start on Isosorbide Dinitrate 20 mg po q 8hrs and Hydralazine 100 mg po q 8hrs. Continue all other current medication management.
[2020-01-11] MEDS: ISOSORBIDE DINITRATE 20 MG TABLET PO SCH ×2 (16:45→21:30)
[2020-01-11] MEDS: HYDRALAZINE HCL 50 MG TABLET PO SCH ×2 (16:45→21:30)
[2020-01-12] MEDS: HYDRALAZINE HCL 50 MG TABLET PO SCH ×3 (05:49→21:53)
[2020-01-12] MEDS: PANTOPRAZOLE SODIUM 40 MG TABLET.DR PO SCH (05:49)
[2020-01-12] MEDS: ISOSORBIDE DINITRATE 20 MG TABLET PO SCH ×3 (05:49→21:53)
[2020-01-12] MEDS: HEPARIN SOD (PORCINE) 5,000 UNIT/ML 1 ML VIAL SUBCUT SCH ×3 (05:50→21:54)
[2020-01-12] MEDS: AMLODIPINE BESYLATE 10 MG TABLET PO SCH (10:29)
[2020-01-12] MEDS: ASPIRIN 81 MG TABLET, ENT COATED PO SCH (10:29)
[2020-01-12] MEDS: CARVEDILOL 12.5 MG TABLET PO SCH ×2 (10:29→21:53)
[2020-01-12] MEDS: TRAMADOL HCL 50 MG TABLET PO PRN (10:31)
[2020-01-12] MEDS ORDERED: ACETAMINOPHEN 325 MG TABLET PO PRN (16:49)
--- NOTE | 2020-01-12 18:26 | PDOC PROGRESS REPORT ---
Subjective Progress Note for:: 01/12/20 Subjective:: Patient denied any chest pain, difficulty with breathing, or palpitation. No nausea, vomiting, or abdominal pain. He reported episode of headache earlier today. No fever or chills. Reason For Visit: ACCELERATED HYPERTENSION,SVT,CHRONIC RENAL FAILURE Physical Exam Vital Signs: Temp Pulse Resp BP Pulse Ox 98.3 F 62 17 179/95 H 100 01/12/20 12:21 01/12/20 14:00 01/12/20 12:21 01/12/20 12:21 01/12/20 12:21 Intake & Output 01/11/20 01/12/20 01/13/20 06:59 06:59 06:59 Intake Total 1161 520 Balance 1161 520 Weight 75.3 kg 75.6 kg Physical Exam: General appearance: PRESENT: no acute distress Head exam: PRESENT: atraumatic, normocephalic Eye exam: PRESENT: conjunctiva pink. ABSENT: pallor, sclera icterus Respiratory exam: PRESENT: clear to auscultation oly Cardiovascular exam: PRESENT: RRR, +S1, +S2. ABSENT: diastolic murmur, rubs, systolic murmur GI/Abdominal exam: PRESENT: normal bowel sounds, soft. ABSENT: tenderness Extremities exam: ABSENT: pedal edema Neurological exam: PRESENT: alert, awake, oriented to person, oriented to place, oriented to time, oriented to situation, CN II-XII grossly intact. ABSENT: motor sensory deficit Skin exam: PRESENT: dry, warm Results Laboratory Results: 01/09/20 16:54 01/09/20 16:54 01/09/20 01/09/20 01/09/20 16:54 16:54 20:10 Creatine Kinase 78 CK-MB (CK-2) 2.55 Troponin I 0.165 0.187 01/10/20 01/10/20 10:34 10:34 Creatine Kinase 77 CK-MB (CK-2) 2.17 Troponin I 0.153 Impressions: Chest X-Ray 01/09/20 17:19 IMPRESSION: Borderline cardiomegaly without pulmonary edema. Assessment & Plan - Diagnosis (1) Accelerated hypertension Is this a current diagnosis for this admission?: Yes Plan: Start on Cardura 1mg po qhs for blood pressure management. Maintain on all other current medication management. (2) SVT (supraventricular tachycardia) Is this a current diagnosis for this admission?: Yes (3) CKD (chronic kidney disease) stage 4, GFR 15-29 ml/min Is this a current diagnosis for this admission?: Yes (4) Hyperlipidemia Qualifiers: Hyperlipidemia type: unspecified Qualified Code(s): E78.5 - Hyperlipidemia, unspecified Is this a current diagnosis for this admission?: Yes - Time Time Spent with patient: 25-34 minutes Level of Care: IMCU Medications reviewed and adjusted accordingly: Yes Anticipated discharge: Home Anticipated DC Timeframe: within 72 hours - Inpatient Certification Based on my medical assessment, after consideration of the patient's comorbidities, presenting symptoms, or acuity I expect that the services needed warrant INPATIENT care.: Yes I certify that my determination is in accordance with my understanding of Medicare's requirements for reasonable and necessary INPATIENT services [42 CFR 412.3e].: Yes Medical Necessity: Significant Comorbidiites Make Outpatient Treatment Too Ri sarina, Need Close Monitoring Due to Risk of Patient Decompensation, Need For Continuous Telemetry Monitoring, Risk of Complication if Not Cared For in Hospital, Risk of Diagnosis Which Will Require Inpatient Eval/Care/Monitoring Post Hospital Care: D/C Compensation And Benefits Advisor Documentation - Plan Summary Plan Summary: Start on Cardura 1 mg po qhs for blood pressure management. Maintain on all other current medication management. Obtain CBC with diff and BMP in am.
[2020-01-12] MEDS ORDERED: DOXAZOSIN MESYLATE 1 MG TABLET PO SCH (22:00)
[2020-01-13] MEDS: ISOSORBIDE DINITRATE 20 MG TABLET PO SCH ×3 (06:30→21:10)
[2020-01-13] MEDS: PANTOPRAZOLE SODIUM 40 MG TABLET.DR PO SCH (06:30)
[2020-01-13] MEDS: HYDRALAZINE HCL 50 MG TABLET PO SCH ×3 (06:30→21:10)
[2020-01-13] MEDS: HEPARIN SOD (PORCINE) 5,000 UNIT/ML 1 ML VIAL SUBCUT SCH ×3 (06:31→21:10)
[2020-01-13] MEDS: ASPIRIN 81 MG TABLET, ENT COATED PO SCH (09:53)
[2020-01-13] MEDS: AMLODIPINE BESYLATE 10 MG TABLET PO SCH (09:53)
[2020-01-13] MEDS: CARVEDILOL 12.5 MG TABLET PO SCH ×2 (09:55→21:10)
[2020-01-13 20:14] LABS: ABSOLUTE EOSINOPHILS # (AUTO) 0.1 10^3/uL (0.0-0.6); ABSOLUTE LYMPHOCYTES (AUTO) 1.5 10^3/uL (0.5-4.7); ABSOLUTE MONOCYTES (AUTO) 0.5 10^3/uL (0.1-1.4); ABSOLUTE NEUT (AUTO) 7.4 10^3/uL (1.7-8.2); BASOPHILS % (AUTO) 0.2 % (0-2); EOSINOPHILS % (AUTO) 1.5 % (0-6); HEMATOCRIT 42.6 % (37.9-51.0); HEMOGLOBIN 13.9 g/dL (13.5-17.0); LYMPHOCYTES % (AUTO) 15.6 % (13-45); MEAN CORPUSCULAR HEMOGLOBIN 21.7 pg (27.0-33.4); MEAN CORPUSCULAR HGB CONC 32.5 g/dL (32.0-36.0); MEAN CORPUSCULAR VOLUME 67 fl (80-97); MONOCYTES % (AUTO) 4.9 % (3-13); PLATELET COUNT 245 10^3/uL (150-450); RED BLOOD COUNT 6.39 10^6/uL (4.35-5.55); RED CELL DISTRIBUTION WIDTH 16.1 % (11.5-14.0); SEGMENTED NEUTROPHILS % (AUTO) 77.8 % (42-78); TOTAL CELLS COUNTED % (AUTO) 100 %; WHITE BLOOD COUNT 9.5 10^3/uL (4.0-10.5)
[2020-01-13 20:32] LABS: ANION GAP 9 (5-19); BLOOD UREA NITROGEN 45 mg/dL (7-20); CALCIUM 8.5 mg/dL (8.4-10.2); CARBON DIOXIDE 22 mmol/L (22-30); CHLORIDE 106 mmol/L (98-107); GLUCOSE 135 mg/dL (75-110); POTASSIUM 4.5 mmol/L (3.6-5.0)
[2020-01-13] MEDS ORDERED: DOXAZOSIN MESYLATE 2 MG TABLET PO SCH (22:00)
[2020-01-13] MEDS ORDERED: DOXAZOSIN MESYLATE 1 MG TABLET PO SCH (22:00)
[2020-01-14] MEDS: HYDRALAZINE HCL 50 MG TABLET PO SCH ×2 (06:02→15:46)
[2020-01-14] MEDS: ISOSORBIDE DINITRATE 20 MG TABLET PO SCH ×2 (06:02→15:48)
[2020-01-14] MEDS: HEPARIN SOD (PORCINE) 5,000 UNIT/ML 1 ML VIAL SUBCUT SCH ×2 (06:02→15:44)
[2020-01-14] MEDS: PANTOPRAZOLE SODIUM 40 MG TABLET.DR PO SCH (06:02)
[2020-01-14] MEDS: CARVEDILOL 12.5 MG TABLET PO SCH (09:36)
[2020-01-14] MEDS: ASPIRIN 81 MG TABLET, ENT COATED PO SCH (09:36)
[2020-01-14] MEDS: AMLODIPINE BESYLATE 10 MG TABLET PO SCH (09:36)
--- NOTE | 2020-01-14 17:38 | PDOC PROGRESS REPORT ---
Subjective Progress Note for:: 01/13/20 Subjective:: No chest pain or difficulty with breathing. No nausea, vomiting, or abdominal pain. He reported episode of headache earlier today. No fever or chills. Reason For Visit: ACCELERATED HYPERTENSION,SVT,CHRONIC RENAL FAILURE Physical Exam Vital Signs: Temp Pulse Resp BP Pulse Ox 98.3 F 66 18 163/88 H 100 01/13/20 11:57 01/13/20 14:00 01/13/20 11:57 01/13/20 11:57 01/13/20 11:57 Intake & Output 01/12/20 01/13/20 01/14/20 06:59 06:59 06:59 Intake Total 520 560 595 Output Total 300 Balance 520 260 595 Weight 75.6 kg 75.7 kg Physical Exam: General appearance: PRESENT: no acute distress Head exam: PRESENT: atraumatic, normocephalic Eye exam: PRESENT: conjunctiva pink. ABSENT: pallor, sclera icterus Respiratory exam: PRESENT: clear to auscultation oly Cardiovascular exam: PRESENT: RRR, +S1, +S2. ABSENT: diastolic murmur, rubs, systolic murmur GI/Abdominal exam: PRESENT: normal bowel sounds, soft. ABSENT: tenderness Extremities exam: ABSENT: pedal edema Neurological exam: PRESENT: alert, awake, oriented to person, oriented to place, oriented to time, oriented to situation, CN II-XII grossly intact. ABSENT: motor sensory deficit Skin exam: PRESENT: dry, warm Results Laboratory Results: 01/09/20 16:54 01/09/20 16:54 01/09/20 01/09/20 01/09/20 16:54 16:54 20:10 Creatine Kinase 78 CK-MB (CK-2) 2.55 Troponin I 0.165 0.187 01/10/20 01/10/20 10:34 10:34 Creatine Kinase 77 CK-MB (CK-2) 2.17 Troponin I 0.153 Impressions: Chest X-Ray 01/09/20 17:19 IMPRESSION: Borderline cardiomegaly without pulmonary edema. Assessment & Plan - Diagnosis (1) Accelerated hypertension Is this a current diagnosis for this admission?: Yes (2) SVT (supraventricular tachycardia) Is this a current diagnosis for this admission?: Yes (3) CKD (chronic kidney disease) stage 4, GFR 15-29 ml/min Is this a current diagnosis for this admission?: Yes (4) Hyperlipidemia Qualifiers: Hyperlipidemia type: unspecified Qualified Code(s): E78.5 - Hyperlipidemia, unspecified Is this a current diagnosis for this admission?: Yes - Time Time Spent with patient: 25-34 minutes Level of Care: IMCU Medications reviewed and adjusted accordingly: Yes Anticipated discharge: Home Anticipated DC Timeframe: within 48 hours - Inpatient Certification Based on my medical assessment, after consideration of the patient's comorbidities, presenting symptoms, or acuity I expect that the services needed warrant INPATIENT care.: Yes I certify that my determination is in accordance with my understanding of Medicare's requirements for reasonable and necessary INPATIENT services [42 CFR 412.3e].: Yes Medical Necessity: Significant Comorbidiites Make Outpatient Treatment Too Risky, Need Close Monitoring Due to Risk of Patient Decompensation, Need For Continuous Telemetry Monitoring, Risk of Complication if Not Cared For in H ospital, Risk of Diagnosis Which Will Require Inpatient Eval/Care/Monitoring Post Hospital Care: D/C Medical Record Consultant Documentation - Plan Summary Plan Summary: Increase Cardura to 2 mg po qhs. Continue on all other current medication management.
[2020-01-14] MEDS ORDERED: INFLUENZA QUAD (6MOS+) 2020-21 VAC 0.5 ML SYR IM ONE (17:57)
[2020-01-14 18:00] VITALS: BP 155/72
--- NOTE | 2020-01-14 18:01 | PDOC DISCHARGE SUMMARY ---
Impression - Admit/DC Date/PCP Admission Date/Primary Care Provider: 01/09/20 21:14 BEV MCCRARY MD Discharge Date: 01/14/20 - Discharge Diagnosis (1) Accelerated hypertension Is this a current diagnosis for this admission?: Yes (2) SVT (supraventricular tachycardia) Is this a current diagnosis for this admission?: Yes (3) CKD (chronic kidney disease) stage 4, GFR 15-29 ml/min Is this a current diagnosis for this admission?: Yes (4) Hyperlipidemia Is this a current diagnosis for this admission?: Yes - Assessment Summary: Patient was admitted for palpitation with demonstrable SVT upon presented and need for Adenosine administration while in the ED. He demonstrated accelerated hypertension related to been off his medication for awhile. He experienced recent deaths of mother and brother and emotionally distorts to he extent of missing his mediation for several days. His blood pressure management was complicated by advancing kidney failure. His antihypertensive medications were adjusted to achieve fairly reasonable blood pressure control. He remain symptoms free at the time of his discharge form the hospital. He will follow up with his PCP, Dr. Mccrary, and industrial robotics mechanic, Dr. Jluis Liao whom he saw in the past and willing to see on outpatient. His post acute care follow up will be as instructed upon discharge. - Additional Information Resuscitation Status: Full Code Discharge Diet: Cardiac Discharge Activity: Activity As Tolerated Referrals: BEV MCCRARY MD [Primary Care Provider] - Follow up as needed (call office for appointment) Ras LIAO MD [ACTIVE STAFF] - (call office for appointment) Prescriptions: Doxazosin Mesylate [Cardura 2 mg Tablet] 2 mg PO QHS #30 tablet Carvedilol 25 mg PO BID #60 tablet Aspirin [Ecotrin 81 mg EC Tablet] 81 mg PO DAILY #30 tabec Hydralazine HCl 100 mg PO TID #90 tablet Isosorbide Dinitrate [Isordil Titradose 20 mg Tablet] 20 mg PO TID #90 tablet Atorvastatin Calcium [Lipitor 20 mg Tablet] 20 mg PO QHS #30 tablet Amlodipine Besylate [Norvasc 10 mg Tablet] 10 mg PO DAILY #30 tablet Tramadol HCl [Ultram 50 mg Tablet] 50 mg PO Q8HP PRN #60 tablet PRN Reason: Home Medications: Amlodipine Besylate [Norvasc 10 mg Tablet] 10 mg PO DAILY #30 tablet 10/07/20 Aspirin [Ecotrin 81 mg EC Tablet] 81 mg PO DAILY #30 tabec 01/14/20 Atorvastatin Calcium [Lipitor 20 mg Tablet] 20 mg PO QHS #30 tablet 01/14/20 Carvedilol 25 mg PO BID #60 tablet 01/14/20 Doxazosin Mesylate [Cardura 2 mg Tablet] 2 mg PO QHS #30 tablet 01/14/20 Hydralazine HCl 100 mg PO TID #90 tablet 01/14/20 Isosorbide Dinitrate [Isordil Titradose 20 mg Tablet] 20 mg PO TID #90 tablet 01/14/20 Tramadol HCl [Ultram 50 mg Tablet] 50 mg PO Q8HP PRN #60 tablet 01/14/20 History of Present Illiness History of Present Illness: GEETHA ADRIAN is a 49 year old male patient of Dr. Bev Mccrary who presented to the ED with two days history of palpitation. He denied associated chest pain or difficulty with breathing. He denied any associated dizziness, headache or focal weakness. He denied any fever, chills, dysuria, or coughing. Patient denied illicit drug usage, excessive caffeine ingestion, or alcohol abuse. He reported recent of his mother and brother, former from natural cause and latter from complication of pancreatitis. He admitted to missing out on his home medication subsequently. His initial evaluation in the ED was significant for severely elevated blood pressure and supraventricular tachycardia. His laboratory evaluation revealed marginally elevated Troponin I level and worsening renal indices. There is associated leukocytosis with left shift without identified source of ongoing infection. His morbidities are as listed below. He was advised hospitalization for further evaluation and management. Hospital Course Hospital Course: Patient was admitted for palpitation with demonstrable SVT upon presented and need for Adenosine administration while in the ED. He demonstrated accelerated hypertension related to been off his medication for awhile. He experienced recent deaths of mother and brother and emotionally distorts to he extent of missing his mediation for several days. His blood pressure management was comp licated by advancing kidney failure. His antihypertensive medications were adjusted to achieve fairly reasonable blood pressure control. He remain symptoms free at the time of his discharge form the hospital. He will follow up with his PCP, Dr. Mccrary, and industrial robotics mechanic, Dr. Jluis Liao whom he saw in the past and willing to see on outpatient. His post acute care follow up will be as instructed upon discharge. Physical Exam Vital Signs: Temp Pulse Resp BP Pulse Ox 98.4 F 65 15 165/80 H 100 01/14/20 15:07 01/14/20 15:07 01/14/20 15:07 01/14/20 15:07 01/14/20 15:07 Intake & Output 01/13/20 01/14/20 01/15/20 06:59 06:59 06:59 Intake Total 560 995 480 Output Total 300 Balance 260 995 480 Weight 75.7 kg 75.2 kg General appearance: PRESENT: no acute distress Head exam: PRESENT: atraumatic, normocephalic Eye exam: PRESENT: conjunctiva pink. ABSENT: pallor, sclera icterus Respiratory exam: PRESENT: clear to auscultation oly Cardiovascular exam: PRESENT: RRR, +S1, +S2. ABSENT: diastolic murmur, rubs, systolic murmur GI/Abdominal exam: PRESENT: normal bowel sounds, soft. ABSENT: tenderness Extremities exam: ABSENT: pedal edema Neurological exam: PRESENT: alert, awake, oriented to person, oriented to place, oriented to time, oriented to situation, CN II-XII grossly intact. ABSENT: motor sensory deficit Skin exam: PRESENT: dry, warm Results Laboratory Results: WBC 9.5 10^3/uL (4.0-10.5) 01/13/20 19:38 RBC 6.39 10^6/uL (4.35-5.55) H 01/13/20 19:38 Hgb 13.9 g/dL (13.5-17.0) 01/13/20 19:38 Hct 42.6 % (37.9-51.0) 01/13/20 19:38 MCV 67 fl (80-97) L 01/13/20 19:38 MCH 21.7 pg (27.0-33.4) L 01/13/20 19:38 MCHC 32.5 g/dL (32.0-36.0) 01/13/20 19:38 RDW 16.1 % (11.5-14.0) H 01/13/20 19:38 Plt Count 245 10^3/uL (150-450) 01/13/20 19:38 Lymph % (Auto) 15.6 % (13-45) 01/13/20 19:38 [place] % (Auto) 4.9 % (3-13) 01/13/20 19:38 Eos % (Auto) 1.5 % (0-6) 01/13/20 19:38 Baso % (Auto) 0.2 % (0-2) 01/13/20 19:38 Absolute Neuts (auto) 7.4 10^3/uL (1.7-8.2) 01/13/20 19:38 Absolute Lymphs (auto) 1.5 10^3/uL (0.5-4.7) 01/13/20 19:38 Absolute Monos (auto) 0.5 10^3/uL (0.1-1.4) 01/13/20 19:38 Absolute Eos (auto) 0.1 10^3/uL (0.0-0.6) 01/13/20 19:38 Absolute Basos (auto) 0.0 10^3/uL (0.0-0.2) 01/13/20 19:38 Seg Neutrophils % 77.8 % (42-78) 01/13/20 19:38 PT 13.1 SEC (11.4-15.4) 01/09/20 16:54 INR 0.97 01/09/20 16:54 Sodium 137.0 mmol/L (137-145) 01/13/20 19:38 Potassium 4.5 mmol/L (3.6-5.0) 01/13/20 19:38 Chloride 106 mmol/L (98-107) 01/13/20 19:38 Carbon Dioxide 22 mmol/L (22-30) 01/13/20 19:38 Anion Gap 9 (5-19) 01/13/20 19:38 BUN 45 mg/dL (7-20) H 01/13/20 19:38 Creatinine 3.40 mg/dL (0.52-1.25) H 01/13/20 19:38 Est GFR ( Amer) 23 (>60) L 01/13/20 19:38 Est GFR (MDRD) Non-Af 19 (>60) L 01/13/20 19:38 Glucose 135 mg/dL (75-110) H 01/13/20 19:38 Calcium 8.5 mg/dL (8.4-10.2) 01/13/20 19:38 Total Bilirubin 1.0 mg/dL (0.2-1.3) 01/09/20 16:54 Direct Bilirubin 0.3 mg/dL (0.0-0.4) 01/09/20 16:54 Neonat Total Bilirubin Not Reportable 01/09/20 16:54 Neonat Direct Bilirubin Not Reportable 01/09/20 16:54 Neonat Indirect Bili Not Reportable 01/09/20 16:54 AST 24 U/L (17-59) 01/09/20 16:54 ALT 22 U/L (<50) 01/09/20 16:54 Alkaline Phosphatase 99 U/L (38-126) 01/09/20 16:54 Creatine Kinase 77 U/L (55-170) 01/10/20 10:34 CK-MB (CK-2) 2.17 ng/mL (<4.55) 01/10/20 10:34 Troponin I 0.153 ng/mL 01/10/20 10:34 Total Protein 6.8 g/dL (6.3-8.2) 01/09/20 16:54 Albumin 3.9 g/dL (3.5-5.0) 01/09/20 16:54 01/09/20 01/09/20 01/10/20 16:54 20:10 10:34 CK-MB (CK-2) 2.55 2.17 Troponin I 0.165 0.187 0.153 Impressions: Chest X-Ray 01/09/20 17:19 IMPRESSION: Borderline cardiomegaly without pulmonary edema. Plan Health Concerns: Worsening blood pressure control and kidney function. Plan of Treatment: Maintain on all current medication management. Emphasized follow up with Dr. Mccrary and Dr. Jluis Liao as instructed upon discharge. Goals: Reduce readmission risk. Close community follow up and monitoring of his renal failure. Time Spent: Greater than 30 Minutes - Extensive discussion regarding post acute care treatment plan. Stroke Is this a Stroke Patient?: No Acute Heart Failure Is this a Heart Failure Patient?: No
[2020-01-15] MEDS ORDERED: INFLUENZA QUAD (6MOS+) 2020-21 VAC 0.5 ML SYR IM ONE (08:00)
--- NOTE | 2020-01-16 14:30 | Progress Note ---
Provider Note Provider Note: Use Hypertensive Urgency since he was in need of IV anti Hypertensive medication during this hospitalization with worsening renal function. Thanks.
== END 2020-01-14 18:26 | disposition home or self-care (01) | DRG 305 ==
LOC: ER 16:20 → EH 21:14 → OBSVTOIN 21:14 → 3S 23:19
PROVIDERS: ADMIT Internal Medicine Geriatric Medicine; ATTEND Family Medicine
DX: I16.0 Hypertensive urgency (principal); I47.1 Supraventricular tachycardia; N18.4 Chronic kidney disease, stage 4 (severe); T46.2X6A Underdosing of other antidysrhythmic drugs, initial encounter; I12.9 Hypertensive chronic kidney disease with stage 1 through stage 4 chronic kidney disease, or unspecified chronic kidney disease; E78.5 Hyperlipidemia, unspecified; I25.2 Old myocardial infarction; K21.9 Gastro-esophageal reflux disease without esophagitis; F17.210 Nicotine dependence, cigarettes, uncomplicated; Z79.82 Long term (current) use of aspirin; Z79.899 Other long term (current) drug therapy; D72.829 Elevated white blood cell count, unspecified; Z23 Encounter for immunization; Z63.79 Other stressful life events affecting family and household
CPT/HCPCS: 36415; 71045; 80048; 80053; 82550; 82553; 84484; 85025; 85610; 90471; 90686; 93005; 93010; 96374; 96375; 96376; 99291; G0008; J0153; J0360; J1644; J3490

== ENCOUNTER → 2020-01-26 | Outpatient (CLI) | payer MEDICAID ==
[2020-01-26 12:27] LABS: ABSOLUTE BASOPHILS # (AUTO) 0.1 10^3/uL (0.0-0.2); ABSOLUTE EOSINOPHILS # (AUTO) 0.2 10^3/uL (0.0-0.6); ABSOLUTE LYMPHOCYTES (AUTO) 0.7 10^3/uL (0.5-4.7); ABSOLUTE MONOCYTES (AUTO) 0.4 10^3/uL (0.1-1.4); ABSOLUTE NEUT (AUTO) 7.1 10^3/uL (1.7-8.2); BASOPHILS % (AUTO) 0.7 % (0-2); EOSINOPHILS % (AUTO) 1.9 % (0-6); HEMATOCRIT 40.6 % (37.9-51.0); LYMPHOCYTES % (AUTO) 8.5 % (13-45); MEAN CORPUSCULAR HEMOGLOBIN 21.4 pg (27.0-33.4); MEAN CORPUSCULAR HGB CONC 31.9 g/dL (32.0-36.0); MEAN CORPUSCULAR VOLUME 67 fl (80-97); MONOCYTES % (AUTO) 5.3 % (3-13); PLATELET COUNT 214 10^3/uL (150-450); RED BLOOD COUNT 6.05 10^6/uL (4.35-5.55); RED CELL DISTRIBUTION WIDTH 16.7 % (11.5-14.0); SEGMENTED NEUTROPHILS % (AUTO) 83.6 % (42-78); TOTAL CELLS COUNTED % (AUTO) 100 %; WHITE BLOOD COUNT 8.5 10^3/uL (4.0-10.5)
[2020-01-26 12:30] LABS: APPEARANCE,URINE CLEAR; BILIRUBIN,URINE NEGATIVE (NEGATIVE); COLOR,URINE STRAW; GLUCOSE, URINE NEGATIVE (NEGATIVE); KETONES,URINE NEGATIVE (NEGATIVE); LEUKOCYTE ESTERASE,URINE NEGATIVE (NEGATIVE); NITRITE,URINE NEGATIVE (NEGATIVE); PROTEIN,URINE >=500 mg/dL (NEGATIVE); URINE SPECIFIC GRAVITY 1.011; UROBILINOGEN,URINE NEGATIVE mg/dL (<2.0)
[2020-01-26 12:49] LABS: ANION GAP 11 (5-19); BLOOD UREA NITROGEN 56 mg/dL (7-20); CALCIUM 9.1 mg/dL (8.4-10.2); CARBON DIOXIDE 17 mmol/L (22-30); CHLORIDE 110 mmol/L (98-107); GLUCOSE 100 mg/dL (75-110); PHOSPHORUS 4.6 mg/dL (2.5-4.5); POTASSIUM 5.2 mmol/L (3.6-5.0)
[2020-01-27 12:37] LABS: CREATININE URINE 79.4 mg/dL (Not Estab.)
[2020-01-27 13:55] LABS: MICROALBUMIN URINE 1113.2 ug/mL (Not Estab.)
[2020-01-27 17:25] LABS: URINE CREATININE 80.9 mg/dL (22-328)
[2020-01-27 17:34] LABS: URINE PROTEIN 246.2 mg/dL (<12)
== END ==
LOC: OD 11:46
PROVIDERS: ATTEND Internal Medicine Nephrology
DX: N18.30 Chronic kidney disease, stage 3 unspecified (principal); R80.9 Proteinuria, unspecified
CPT/HCPCS: 36415; 80048; 81001; 82043; 82570; 83970; 84100; 84156; 85025